=== PATIENT | female | born 1985 | race Caucasian/White ===

== ENCOUNTER → 2016-05-22 | Outpatient (REF) | payer MEDICAID | END | disposition home or self-care (01) | LOC: M LAB REF 13:11 | PROVIDERS: ATTEND Specialist | DX: Z12.4 Encounter for screening for malignant neoplasm of cervix (principal); R87.612 Low grade squamous intraepithelial lesion on cytologic smear of cervix (LGSIL) ==

== ENCOUNTER → 2016-05-24 | Outpatient (REF) | payer MEDICAID | LOC: M LAB REF 15:02 | PROVIDERS: ATTEND Nurse Practitioner Family | DX: Z02.0 Encounter for examination for admission to educational institution (principal) ==

== ENCOUNTER → 2016-07-27 | Outpatient (REF) | payer OTHER | LOC: M LAB REF 16:17 | PROVIDERS: ATTEND Physician Assistant | DX: R30.0 Dysuria (principal) ==

== ENCOUNTER → 2016-10-17 | Outpatient (REF) | payer OTHER | LOC: M LAB REF 17:02 | PROVIDERS: ATTEND Physician Assistant | DX: R10.9 Unspecified abdominal pain (principal) ==

== ENCOUNTER → 2016-10-23 | Outpatient (REF) | payer OTHER | LOC: M LAB REF 10:00 | PROVIDERS: ATTEND Specialist | DX: R87.612 Low grade squamous intraepithelial lesion on cytologic smear of cervix (LGSIL) (principal) ==

== ENCOUNTER → 2016-12-31 | Outpatient (CLI) | payer OTHER ==
[2016-12-31 19:13] LABS: BASO % 0.3 % (0.0-1.0); EOS # 0.2 K/mm3 (0.0-0.50); EOS % 2.2 % (0.0-3.0); LARGE UNSTAINED CELL # 0.1 K/mm3 (0.0-0.4); LARGE UNSTAINED CELL % 1.4 % (0.0-4.0); LYMPH # 1.7 K/mm3 (1.5-6.5); LYMPH % 24.1 % (24.0-44.0); MEAN CORPUSCULAR HEMOGLOBIN 32.9 pg (27.0-33.0); MEAN CORPUSCULAR HGB CONC 34.7 g/dl (32.0-36.5); MEAN CORPUSCULAR VOLUME 94.9 fl (80.0-96.0); MONO # 0.4 K/mm3 (0.0-0.8); MONO % 5.7 % (0.0-5.0); NEUTROPHILS # 4.4 K/mm3 (1.8-7.7); NEUTROPHILS % 66.3 % (36.0-66.0); PLATELET COUNT, AUTOMATED 284 k/mm3 (150-450); RED CELL DISTRIBUTION WIDTH 11.8 % (11.5-14.5); WHITE BLOOD COUNT 6.7 K/mm3 (4.0-10.0)
[2017-01-02 10:57] LABS: HBsAg Prenatal NEGATIVE (NEGATIVE)
== END ==
LOC: M SMT 13:42
PROVIDERS: ATTEND Specialist
DX: Z34.81 Encounter for supervision of other normal pregnancy, first trimester (principal)

== ENCOUNTER 2017-03-02 10:26 | Emergency (ER) | payer OTHER ==
[~2017-03-02] VITALS: Ht 165.1 cm; Wt 59.1 kg
[2017-03-02 12:55] LABS: BASO % 0.3 % (0.0-1.0); EOS # 0.1 10^3/uL (0.0-0.50); EOS % 1.2 % (0.0-3.0); IMMATURE GRANULOCYTE % 0.3 % (0-0); LYMPH # 1.4 10^3/uL (1.5-6.5); LYMPH % 18.2 % (24.0-44.0); MEAN CORPUSCULAR HEMOGLOBIN 32.2 pg (27.0-33.0); MEAN CORPUSCULAR HGB CONC 35.2 g/dl (32.0-36.5); MEAN CORPUSCULAR VOLUME 91.5 fl (80.0-96.0); MONO # 0.3 10^3/uL (0.0-0.8); MONO % 4.1 % (0.0-5.0); NEUTROPHILS # 5.7 10^3/uL (1.8-7.7); NEUTROPHILS % 75.9 % (36.0-66.0); PLATELET COUNT, AUTOMATED 283 10^3/uL (150-450); RED CELL DISTRIBUTION WIDTH 11.9 % (11.5-14.5); WHITE BLOOD COUNT 7.5 10^3/uL (4.0-10.0)
--- NOTE | 2017-03-02 14:36 | REP ---
First trimester obstetric ultrasound for abdominal pain. Emergency room request. There is a single intrauterine gestation. position is variable. There is motion and cardiac activity. The heart rate is 147 beats per minute. The placenta is anterior. There is no placenta previa or abruptio. Placenta is grade zero. Subjectively the amniotic fluid volume is normal. The maternal adnexa and cul-de-sac are unremarkable. By the ultrasound today gestational age is 15 weeks 1 day with an CASH of 08/23/2017. Gestational age by LMP is 13 weeks 6 days. weight is 113 grams presence 0 pounds, 3 ounces). This is the 95th percentile for 13 weeks 6 days and 30th percentile for 15 weeks 1 day. anatomic survey is attempted, however, the patient is too young for accurate anatomic assessment. However, during the ultrasound today. There were a normal cranium, choroid plexus, cavum septum pellucidum, lungs, four-chamber heart, cardiac right and left ventricular outflow tracts, diaphragm, stomach, cord insertion, kidneys, bladder and upper lower extremities. The cerebellum and posterior fossa, facial profile, three-vessel cord and spine was suboptimally demonstrated. Signed by Pratik Salinas MD 03/02/2017 02:28 P
[2017-03-02 14:51] VITALS: BP 116/71
== END 2017-03-02 14:53 | disposition home or self-care (01) ==
LOC: M ED 10:26
DX: O26.892 Other specified pregnancy related conditions, second trimester (principal); Z3A.13 13 weeks gestation of pregnancy

== ENCOUNTER → 2017-04-08 | Outpatient (CLI) | payer OTHER ==
--- NOTE | 2017-04-08 14:21 | REP ---
Clinical: Anatomical evaluation. Comparison: 03/02/2017 . Findings: Examination demonstrates a single live intrauterine in cephalic presentation. motion is identified by technologist. Placenta is noted anteriorly and grade zero without evidence for placenta previa or abruption. Amniotic fluid volume is normal. Cervix measures 3.5 cm in length and appears closed. No evidence for nuchal cord. Gestational age by LMP 19 weeks 1 day with CASH 09/01/2017 . Gestational age by current measurements 20 weeks 1 day with CASH 08/25/2017 . FHR equals 144 beats per minute. BPD 4.9 cm 20 weeks 5 days HC 17.7 cm 20 weeks 1 day AC 15.8 cm 21 weeks 0 days FL 3.2 cm 20 weeks 0 days HL 3.4 cm 21 weeks 3 days HC/AC ratio 1.12 Estimated weight 359 grams ( 51st percentile based on age by first ultrasound at 20 weeks 3 days ). Anatomical assessment demonstrates normal structures including cranium, choroid plexus, cavum, cerebellum/posterior fossa, nose and lips, lungs, four-chamber heart/ventricular outflow tracts, diaphragm, stomach, cord insertion/three-vessel cord, kidneys/bladder, spine, and extremities. Impression: 1. Single live intrauterine in cephalic presentation demonstrating appropriate interval growth based on age by first ultrasound and current biometrical measurements. 2. Anatomical assessment is essentially complete although facial profile is limited in evaluation. Signed by Afshin Karimi MD 04/08/2017 02:13 P
== END ==
LOC: M SMT 08:53
PROVIDERS: ATTEND Specialist
DX: Z34.82 Encounter for supervision of other normal pregnancy, second trimester (principal)

== ENCOUNTER → 2017-05-01 | Outpatient (CLI) | payer OTHER ==
--- NOTE | 2017-05-01 20:06 | REP ---
Clinical: Anatomical evaluation. Comparison: 04/08/2017 . Findings: Examination demonstrates a single live intrauterine in breech presentation. motion is identified by technologist. Placenta is noted anteriorly and grade one without evidence for placenta previa or abruption. Amniotic fluid volume is normal. Cervix measures 4.4 cm in length and appears closed. No evidence for nuchal cord. Gestational age by first US 23 weeks 5 days with CASH 08/23/2017 . Gestational age by current measurements 24 weeks 0 days with CASH 08/21/2017 . FHR equals 153 beats per minute. Estimated weight 659 grams ( 57 percentile based on age by first ultrasound ). Anatomical assessment demonstrates normal structures including cranium, choroid plexus, cavum, cerebellum/posterior fossa, facial features, lungs, four-chamber heart/ventricular outflow tracts, diaphragm, stomach, cord insertion/three-vessel cord, kidneys/bladder, and extremities. Impression: Single live intrauterine in breech presentation demonstrating appropriate interval growth when compared to first ultrasound. In conjunction with prior examination anatomical assessment is complete and normal. Signed by Afshin Karimi MD 05/01/2017 04:57 P
== END ==
LOC: M SMT 10:45
PROVIDERS: ATTEND Specialist
DX: Z34.82 Encounter for supervision of other normal pregnancy, second trimester (principal)

== ENCOUNTER → 2017-06-13 | Outpatient (CLI) | payer BC, OTHER ==
[2017-06-13 15:59] LABS: HEMATOCRIT 34.4 % (36.0-47.0); HEMOGLOBIN 11.5 g/dl (12.0-16.0); MEAN CORPUSCULAR HEMOGLOBIN 30.4 pg (27.0-33.0); MEAN CORPUSCULAR HGB CONC 33.4 g/dl (32.0-36.5); PLATELET COUNT, AUTOMATED 280 10^3/uL (150-450); RED BLOOD COUNT 3.78 10^6/uL (4.00-5.40); WHITE BLOOD COUNT 8.4 10^3/uL (4.0-10.0)
[2017-06-13 16:12] LABS: GLUCOSE CHALLENGE TEST 1 HOUR 96 MG/DL (LESS THAN 140)
== END ==
LOC: M SMT 10:35
DX: Z34.82 Encounter for supervision of other normal pregnancy, second trimester (principal)
CPT/HCPCS: 82950

== ENCOUNTER → 2017-08-05 | Outpatient (REF) | payer OTHER | LOC: M LAB REF 13:07 | DX: Z34.83 Encounter for supervision of other normal pregnancy, third trimester (principal) ==

== ENCOUNTER 2017-09-01 21:26 | Inpatient (IN) | payer BC, OTHER ==
[2017-09-01 22:26] LABS: HEMATOCRIT 29.3 % (36.0-47.0); HEMOGLOBIN 9.8 g/dl (12.0-15.5); MEAN CORPUSCULAR HEMOGLOBIN 28.1 pg (27.0-33.0); MEAN CORPUSCULAR HGB CONC 33.4 g/dl (32.0-36.5); PLATELET COUNT, AUTOMATED 251 10^3/uL (150-450); RED BLOOD COUNT 3.49 10^6/uL (4.00-5.40); RED CELL DISTRIBUTION WIDTH 13.5 % (11.5-14.5); WHITE BLOOD COUNT 11.3 10^3/uL (4.0-10.0)
[2017-09-01] MEDS ORDERED: FENTANYL 2MCG/ML ROPIVACAINE 0.2% IN 0.9% NACL 200ML IVBAG As Ordered (22:33)
[2017-09-01] MEDS: LACTATED RINGER'S 1000 ML IV (22:58)
[2017-09-01] MEDS: LR 1,000 ML IV (22:58)
[2017-09-01] MEDS: PENICILLIN G POTASSIUM IV 5 MU in D5W MINI-BAG PLUS 100 ML IV (22:58)
[2017-09-01] MEDS: FENTANYL/ROPIVACAINE/NACL BAG 200 ML EPIDURAL (23:44)
[2017-09-02] MEDS ORDERED: ONDANSETRON 4MG/2ML VIAL (J2405) IV ×3 (00:45→19:00)
[2017-09-02] MEDS ORDERED: EPIDURAL/PCA KEYS XX (00:45)
[2017-09-02] MEDS ORDERED: ePHEDrine SULFATE 25 MG/5 ML(5MG/ML) SYRINGE IV (00:45)
[2017-09-02] MEDS ORDERED: REFRIGERATOR IV KEYS XX (00:45)
[2017-09-02] MEDS ORDERED: EPIDURAL COMMENT XX (00:45)
[2017-09-02] MEDS ORDERED: LACTATED RINGER'S 1000 ML IV (00:45)
[2017-09-02] MEDS ORDERED: NALOXONE INJ 0.4 MG/1 ML VIAL (J2310) IV ×3 (00:45→18:13)
[2017-09-02] MEDS ORDERED: diphenhydrAMINE INJ 50MG/ML VIAL (J1200) IV (00:45)
[2017-09-02 00:51] LABS: ALT/SGPT 29 U/L (12-78); AST/SGOT 26 U/L (7-37); BILIRUBIN,TOTAL 0.3 MG/DL (0.2-1.0); CREATININE FOR GFR 0.68 MG/DL (0.55-1.30); GLOMERULAR FILTRATION RATE > 60.0 (>60); LDH LACTATE DEHYDROGENASE 188 U/L (84-246)
[2017-09-02] MEDS: PENICILLIN G POTASSIUM IV 2.5 MU in APPROPRIATE DILUENT 1 EA IV ×4 (03:38→16:07)
[2017-09-02] MEDS ORDERED: OXYTOCIN 30 UNITS IN 0.9% NaCl 500ML IV BAG (J2590) As Ordered (07:03)
[2017-09-02] MEDS: LR 1,000 ML IV ×5 (08:41→20:58)
[2017-09-02] MEDS: ACETAMINOPHEN TAB 650MG DOSE (2X325MG) PO ×2 (09:50→15:46)
[2017-09-02] MEDS: OXYTOCIN DRIP 30 UNITS in APPROPRIATE DILUENT 1 EA IV (11:53)
[2017-09-02] MEDS ORDERED: ceFAZolin 2 GM/D5W 50 ML IV BAG (J0690 PER 500MG) As Ordered (17:13)
[2017-09-02] MEDS ORDERED: BICITRA 30ML SOLN UDC As Ordered (17:13)
[2017-09-02] MEDS: LACTATED RINGER'S 1000 ML IV (17:19)
[2017-09-02] MEDS: BICITRA 30ML SOLN UDC PO (17:40)
[2017-09-02] MEDS ORDERED: MORPHINE PRES-FREE INJ 10 MG/10 ML VIAL (J2274) As Ordered (17:45)
[2017-09-02] MEDS ORDERED: LIDOCAINE 2% W/EPIN INJ 20ML **PRES FREE As Ordered (17:45)
[2017-09-02] MEDS ORDERED: SODIUM BICARBONATE 8.4% INJ 50 ML SYRINGE As Ordered (17:45)
[2017-09-02] MEDS ORDERED: OXYTOCIN INJ 10 UNITS/ML VIAL (J2590) As Ordered ×2 (18:00)
[2017-09-02] MEDS ORDERED: METOCLOPRAMIDE INJ 10MG/2ML VIAL (J2765) IV (18:13)
[2017-09-02] MEDS ORDERED: KETOROLAC 60 MG/2 ML VIAL (J1885) As Ordered (18:14)
[2017-09-02] MEDS ORDERED: ONDANSETRON 4MG/2ML VIAL (J2405) As Ordered (18:21)
[2017-09-02 18:23] LABS: CORD GAS ABE V -2.7; CORD GAS HCO3 V 21.1 MEQ/L; CORD GAS O2 SAT V 58.6 %; CORD GAS PCO2 V 34.1 mmHg; CORD GAS PH V 7.409 UNITS; CORD GAS PO2 V 25.6 mmHg; CORD GAS SBC V 21.3 MEQ/L; CORD GAS TCO2 V 22.1 MEQ/L
[2017-09-02] MEDS ORDERED: RHOGAM 300 MCG (1500 IU) INJ (J2790) IM (18:45)
[2017-09-02] MEDS ORDERED: MEASLES,MUMPS,RUBELLA VACCINE INJ (MMR-II) (90707) SC (18:45)
[2017-09-02] MEDS ORDERED: DOCUSATE SODIUM 100 MG CAP PO (18:45)
[2017-09-02] MEDS ORDERED: fentaNYL 100 MCG/2 ML INJECTION (J3010) IV (19:00)
[2017-09-02] MEDS ORDERED: MEPERIDINE INJ 25 MG/ML VIAL (J2175) IV (19:00)
[2017-09-02] MEDS ORDERED: NALBUPHINE HCL 10 MG/ML AMP (J2300) IV (19:00)
[2017-09-02] MEDS: PERCOCET 5MG/325MG TAB PO (20:58)
[2017-09-02] MEDS: KETOROLAC 30 MG/ML VIAL (J1885) IV (23:53)
[2017-09-03] MEDS: LR 1,000 ML IV ×2 (02:37→10:37)
[2017-09-03] MEDS: PERCOCET 5MG/325MG TAB PO ×4 (02:44→21:41)
[2017-09-03] MEDS: KETOROLAC 30 MG/ML VIAL (J1885) IV ×3 (06:19→18:30)
[2017-09-03] MEDS: NALBUPHINE HCL 10 MG/ML AMP (J2300) IV ×2 (06:19)
[2017-09-03 06:51] LABS: HEMATOCRIT 21.8 % (36.0-47.0); MEAN CORPUSCULAR VOLUME 84.8 fl (80.0-96.0); PLATELET COUNT, AUTOMATED 173 10^3/uL (150-450); RED BLOOD COUNT 2.57 10^6/uL (4.00-5.40); RED CELL DISTRIBUTION WIDTH 14.1 % (11.5-14.5); WHITE BLOOD COUNT 10.6 10^3/uL (4.0-10.0)
[2017-09-03 07:01] LABS: HEMOGLOBIN 7.2 g/dl (12.0-15.5)
[2017-09-03] MEDS: PRENATAL VITAMINS CHEWABLE TABLET PO (08:02)
[2017-09-04] MEDS: ONDANSETRON 4MG/2ML VIAL (J2405) IV (00:18)
[2017-09-04] MEDS: IBUPROFEN 800 MG TAB PO ×3 (02:07→18:30)
[2017-09-04] MEDS: PRENATAL VITAMINS CHEWABLE TABLET PO (09:56)
[2017-09-04] MEDS: PERCOCET 5MG/325MG TAB PO (12:58)
[2017-09-05] MEDS: IBUPROFEN 800 MG TAB PO ×2 (01:55→09:58)
[2017-09-05] MEDS: PRENATAL VITAMINS CHEWABLE TABLET PO (08:05)
== END 2017-09-05 10:45 | disposition home or self-care (01) | DRG 540 ==
LOC: M LDO 21:26 → M LDI 21:54 → M OBS 09-02 20:25
PROC: 10D00Z1 Extraction of Products of Conception, Low, Open Approach (ICD-10-PCS; principal; 2017-09-02 17:43)
PROC: 10907ZC Drainage of Amniotic Fluid, Therapeutic from Products of Conception, Via Natural or Artificial Opening (ICD-10-PCS; 2017-09-02 17:43)
DX: O48.0 Post-term pregnancy (principal); O99.824 Streptococcus B carrier state complicating childbirth; Z37.0 Single live birth; Z3A.40 40 weeks gestation of pregnancy; O32.4XX0 Maternal care for high head at term, not applicable or unspecified; O77.0 Labor and delivery complicated by meconium in amniotic fluid

== ENCOUNTER → 2018-03-26 | Outpatient (REF) | payer BC, OTHER ==
[2018-03-26 20:45] LABS: CHLAMYDIA DNA AMPLIFICATION NEGATIVE (NEGATIVE); GC DNA AMPLIFICATION NEGATIVE (NEGATIVE)
== END ==
LOC: M LAB REF 16:53
DX: N76.0 Acute vaginitis (principal)
CPT/HCPCS: 87591

== ENCOUNTER → 2018-06-03 | Outpatient (REF) | payer BC ==
[~2018-06-03] MED LIST: IBUP-1114 PO; OXYC1TAB23 PO
[2018-06-07 14:47] LABS: HPV HYBRID CAPTURE II Positive (Negative)
== END ==
LOC: M LAB REF 17:00
PROVIDERS: ATTEND Specialist
DX: Z12.4 Encounter for screening for malignant neoplasm of cervix (principal)
CPT/HCPCS: 87624; G0123

== ENCOUNTER → 2018-09-08 | Outpatient (CLI) | payer BC | LOC: M SMT 13:41 | PROVIDERS: ATTEND Specialist | DX: O02.1 Missed abortion (principal) ==

== ENCOUNTER 2018-09-16 14:46 | Day surgery (SDC) | payer BC ==
[~2018-09-16] VITALS: Ht 157.5 cm; Wt 54.0 kg
[~2018-09-16 14:46] MED LIST changes: +LR 1,000 ML IV SCH
[2018-09-16 15:10] LABS: HEMATOCRIT 30.5 % (36.0-47.0); HEMOGLOBIN 10.1 g/dl (12.0-15.5); MEAN CORPUSCULAR HEMOGLOBIN 29.2 pg (27.0-33.0); MEAN CORPUSCULAR HGB CONC 33.1 g/dl (32.0-36.5); MEAN CORPUSCULAR VOLUME 88.2 fl (80.0-96.0); PLATELET COUNT, AUTOMATED 381 10^3/uL (150-450); RED BLOOD COUNT 3.46 10^6/uL (4.00-5.40); WHITE BLOOD COUNT 6.1 10^3/uL (4.0-10.0)
[2018-09-16] MEDS ORDERED: LIDOCAINE 1% SDV INJ 30 ML VIAL As Ordered ONE (16:55)
[2018-09-16] MEDS ORDERED: PROPOFOL 200 MG/20 ML VIAL As Ordered ONE (17:06)
[2018-09-16] MEDS ORDERED: fentaNYL 100 MCG/2 ML INJECTION (J3010) As Ordered ONE (17:07)
[2018-09-16] MEDS ORDERED: MIDAZOLAM INJ 2 MG/2 ML VIAL (J2250) As Ordered ONE (17:07)
[2018-09-16] MEDS ORDERED: KETOROLAC 60 MG/2 ML VIAL (J1885) As Ordered ONE (17:22)
[2018-09-16] MEDS ORDERED: DOXYCYCLINE HYCLATE 100 MG TAB PO ONE (18:15)
[2018-09-16] MEDS ORDERED: ACETAMINOPHEN 500 MG TAB PO ONE (18:15)
[2018-09-16] MEDS ORDERED: LR 1,000 ML IV SCH (18:15)
[2018-09-16 18:25] VITALS: BP 112/56
--- NOTE | 2018-09-16 18:46 | RO ---
DATE OF PROCEDURE: 09/16/2018 PREPROCEDURE DIAGNOSIS: Incomplete . POSTPROCEDURE DIAGNOSIS: Incomplete . PROCEDURE: Dilation, evacuation and curettage (D, E and C). SURGEON: Dr. Jose L Ordoñez DIRECTOR OF EXHIBITS: ANESTHESIA: Local with sedation. ESTIMATED BLOOD LOSS: 10 mL. FINDINGS: Moderate amount of products of conception. DESCRIPTION OF PROCEDURE: The patient was taken to the operating room where intravenous (IV) sedation was given. She was prepped and draped in a sterile fashion in the dorsal lithotomy position. A speculum was placed in the vagina, and the anterior lip of the cervix was grasped with a tenaculum. The cervix was injected circumferentially with 20 mL of 1% lidocaine. The cervix was dilated with tapered dilators. A #9 mm suction curette was placed through the internal os. The suction device was activated, the curette was gently rotated until products of conception were noted coming through the suction tubing. Sharp curettage performed. The uterine cavity was deemed to be empty. All instruments were removed. Sponge and instrument counts were correct.
== END 2018-09-16 18:56 | disposition home or self-care (01) ==
LOC: M SDC 14:46
PROVIDERS: ATTEND Specialist
DX: O02.1 Missed abortion (principal)
CPT/HCPCS: 36415; 59820; 85027; 88305; J1885; J2250; J3010

== ENCOUNTER → 2018-10-28 | Outpatient (REF) | payer BC ==
[~2018-10-28] MED LIST changes: -LR 1,000 ML IV SCH
== END ==
LOC: M LAB REF 17:40
PROVIDERS: ATTEND Specialist
DX: R87.612 Low grade squamous intraepithelial lesion on cytologic smear of cervix (LGSIL) (principal); R87.810 Cervical high risk human papillomavirus (HPV) DNA test positive

== ENCOUNTER → 2020-03-04 | Outpatient (REF) | payer BC | LOC: M SFHCWAGY 08:36 | PROVIDERS: ATTEND Specialist | DX: Z01.419 Encounter for gynecological examination (general) (routine) without abnormal findings (principal) ==

== ENCOUNTER → 2020-06-25 | Outpatient (CLI) | payer BC ==
[~2020-06-25] MED LIST changes: +ESCI10TA16
== END ==
LOC: M LABSMTC 10:58
PROVIDERS: ATTEND Anesthesiology
DX: Z01.812 Encounter for preprocedural laboratory examination (principal); Z20.822 Contact with and (suspected) exposure to COVID-19

== ENCOUNTER 2020-06-30 06:00 | Day surgery (SDC) | payer BC ==
[~2020-06-30] VITALS: Ht 165.1 cm; Wt 53.1 kg
[~2020-06-30 06:00] MED LIST changes: +LR 1,000 ML IV ONE
--- OUTSIDE RECORDS SUMMARY | 2020-06-30 06:04 | CCD ---
Author Author [facility] [employer] 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 Role Phone Jose L Ordoñez Unavailable PROBLEMS Type Condition ICD9-CM Code [id number] Code Onset Dates Condition S tatus SNOMED Code Notes Problem Unspecified symptom associated with female genital organs 625.9 Active 851938351 ALLERGIES No Known Allergies ENCOUNTERS from 1987 to 2020-05-18 Encounter Location Date Provider Diagnosis [facility] [address] [place] [address] May, Jose L Ordoñez IMMUNIZATIONS No Information SOCIAL HISTORY Sex Assigned At : Social History Observation Description Sex Assigned At Unknown Alcohol Screening: Question Answer Notes Did you have a drink containing alcohol in the past year? No Points 0 Interpretation Negative REASON FOR REFERRAL No Information VITAL SIGNS No information MEDICATIONS Medication SIG (Take, Route, Frequency, Duration) Notes Start Da te End Date Status Seasonique 0.15-0.03 &0.01 MG 1 tablet Orally Once a d ay at same time each day for 84 day(s) Oct, Unknown Macrobid 100 mg 1 capsule with food Orally every 12 hrs for 7 da y(s) May, Not-Taking Multivitamins otc 1 tab(s) p.o. occ. Active Lexapro 10 MG 1 tablet Orally Once a day Active PROCEDURES No Information RESULTS No Results REASON FOR VISIT AUTHORIZATION MEDICAL (GENERAL) HISTORY Type Description Date Medical History PCOS ? Medical History hx UTIs Surgical History cystoscopy 2008 Goals Section No Information Health Concerns No Information MEDICAL EQUIPMENT No Information MENTAL STATUS No Information FUNCTIONAL STATUS No Information ASSESSMENTS No Information PLAN OF TREATMENT Next Appt Details Provider Name:Jose L Ordoñez, 2020-06-03 03:20:00 PM, [address] [place] [address], [phone], Provider Name:Jose L Ordoñez, 2020-06-30 07:30:00 AM, [address] [place] [address], [phone], Provider Name:Jose L Ordoñez, 2020-07-18 03:20:00 PM, [address] [place] [address], [phone], Insurance Providers Payer Name Payer Address Payer Phone Insured Name Patient Relati onship to Insured Coverage Start Date Coverage End Date [employer] [facility] [id number] [facility] [id number] APRYL APPIAH [id number]
--- OUTSIDE RECORDS SUMMARY | 2020-06-30 06:04 | CCD | Continuity of Care Document ---
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 Recreational Drug Use Never Used Drugs Exercise Type/Frequency Walks 5 times a week Seat Belt/Car Seat Always uses car seat Bike Helmet Not Applicable as does not ride a bike Guns in Home No Allergies, Adverse Reactions, Alerts Description No Known Drug Allergies Medications Active Medications SIG Qnty Indications Ordering Provide r Date Escitalopram Oxalate 10mg Tablets 1 by mouth every day 90tabs F41.1 Thomas Odonnell DO 0 Immunizations Description No Information Available Vital Signs Date Vital Result Comment 05/31/2020 5:52pm BP Systolic 120 mmHg BP Diastolic 80 mmHg Heart Rate 60 /min Body Temperature 98.0 F Respiratory Rate 16 /min Weight 127.00 lb Weight 57.607 kg Height 65 inches 5'5" BMI (Body Mass Index) 21.1 kg/m2 [place] Body Weight 125 lb 12/01/2019 6:10pm BP Systolic 98 mmHg BP Diastolic 62 mmHg Heart Rate 60 /min Body Temperature 97.8 F Respiratory Rate 18 /min Weight 121.00 lb Weight 54.886 kg Height 65 inches 5'5" BMI (Body Mass Index) 20.1 kg/m2 [place] Body Weight 125 lb Results Description No Information Available Procedures Description No Information Available Medical Devices Description No Information Available Encounters Type Date Location Provider Dx Diagnosis Office Visit 05/31/2020 6:15p [address] Harpal Fragoso F41.1 Generalized anxiety disorder Assessments Date Code Description Provider 05/31/2020 F41.1 Generalized anxiety disorder Ant vince Odonnell DO Plan of Treatment Future Appointment(s):* 09/13/2020 5:30 pm - Thomas Odonnell DO at [address] 05/31/2020 - Thomas Odonnell DO* F41.1 Generalized anxiety disorder* Comments:* Patient to continue current medication and contact the office with concerns. Patient to f/u in 3-4 months. Functional Status Description No Information Available Mental Status Mental Condition Comment Date Status None Active Referrals Refer to Dr Reason for Referral Status Appt Date [facility] Please obtain aut h for bilateral diagnostic mammogram due to breast lumps Radiology recommends patient have a mammogram and sonogram Closed [facility] [address] [place] [address] [phone]
--- OUTSIDE RECORDS SUMMARY | 2020-06-30 06:04 | CCD ---
Author Author [facility] Organization [facility] Address Unknown Phone Unavailable Care Team Providers Care Motor Coach Chauffeur Name Role Phone Jose L Ordoñez Unavailable PROBLEMS Type Condition ICD9-CM Code [id number] Code Onset Dates Condition S tatus W/U Status Risk SNOMED Code Notes Problem Unspecified symptom associated with female genital organs 625.9 Active confirmed ALLERGIES No Known Allergies ENCOUNTERS from 1987 to 2020-06-25 Encounter Location Date Provider Diagnosis [facility] [address] [place] [id number] Jun, Jose L Ordoñez Excessive menses N92 .0 IMMUNIZATIONS No Information SOCIAL HISTORY Sex Assigned At : Social History Observation Description Sex Assigned At Unknown Alcohol Screening: Question Answer Notes Did you have a drink containing alcohol in the past year? No Points 0 Interpretation Negative REASON FOR REFERRAL No Information VITAL SIGNS Weight 123.6 lbs Jun, Weight-kg 56.06 kg Jun, Height 65 in Jun, BMI 20.57 kg/m2 Jun, Blood pressure systolic 112 mm Hg Jun, Blood pressure diastolic 72 mm Hg Jun, MEDICATIONS Medication SIG (Take, Route, Frequency, Duration) Notes Start Da te End Date Status Lexapro 10 MG 1 tablet Orally Once a day Active Macrobid 100 mg 1 capsule with food Orally every 12 hrs for 7 da y(s) May, Not-Taking Seasonique 0.15-0.03 &0.01 MG 1 tablet Orally Once a d ay at same time each day for 84 day(s) Oct, Not-Taking Multivitamins otc 1 tab(s) p.o. occ. Active PROCEDURES No Information RESULTS No Results REASON FOR VISIT PRE OP SURG 06/30/20 MEDICAL (GENERAL) HISTORY Type Description Date Medical History PCOS ? Medical History hx UTIs Surgical History cystoscopy 2007 Goals Section No Information Health Concerns No Information MEDICAL EQUIPMENT No Information MENTAL STATUS No Information FUNCTIONAL STATUS No Information ASSESSMENTS Encounter Date Diagnosis Assessment Notes Treatment Notes Treatm ent Clinical Notes Jun, Excessive menses (ICD-10 - N92.0) PLAN OF TREATMENT Next Appt Details Provider Name:Jose L Ordoñez 2020-06-30 07:30:00 AM, [address] [place] [address], [phone], Provider Name:Jose L Ordoñez 2020-07-18 03:20:00 PM, [address] [place] [address], [phone], Insurance Providers Payer Name Payer Address Payer Phone Insured Name Patient Relati onship to Insured Coverage Start Date Coverage End Date BCBS [place] PPO [id number] [facility] [employer] [place] [id number] APRYL APPIAH
--- OUTSIDE RECORDS SUMMARY | 2020-06-30 06:04 | CCD | Continuity of Care Document ---
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 Recreational Drug Use Never Used Drugs Exercise [...] by mouth every day 90tabs F41.1 Thomas Odonnell, 0 History Medications No Active Medications Unknown - 12/01/2019 Lexapro 10mg Tablets 1 by mouth every day 30tabs F41.1 Thomas Odonnell, 12/01/2019 - 120 05/2019 Immunizations Description No Information Available Vital Signs Date Vital Result Comment 05/31/2020 5:52pm BP Systolic 120 mmHg BP Diastolic 80 mmHg Heart Rate 60 /min Body Temperature 98.0 F Respiratory Rate 16 /min Weight 127.00 lb Weight 57.607 kg Height 65 inches 5'5" BMI (Body Mass Index) 21.1 kg/m2 [place] Body Weight 125 lb 12/01/2019 6:10pm BP Systolic 98 mmHg BP Diastolic 62 mmHg Heart Rate 60 /min Body Temperature 97.8 F Respiratory Rate 18 /min Weight 121.00 lb Weight 54.886 kg Height 65 inches 5'5" BMI (Body Mass Index) 20.1 kg/m2 [place] Body Weight 125 lb Results Description No Information Available Procedures Description No Information Available Medical Devices Description No Information Available Encounters Type Date Location Provider Dx Diagnosis Office Visit 05/31/2020 6:[address]p [address] Harpal Fragoso O F41.1 Generalized anxiety disorder Office Visit 12/01/2019 6:[address]p [address] Harpal Fragoso N63.0 Unspecified lump in unspecified breast F41.1 Generalized anxiety disorder Assessments Date Code Description Provider 05/31/2020 F41.1 Generalized anxiety disorder Ant vince Odonnell DO 12/01/2019 N63.0 Unspecified lump in unspecified breast Thomas Odonnell DO 12/01/2019 F41.1 Generalized anxiety disorder Ant vince Odonnell [...] Date Status None Active Referrals Refer to Reason for Referral Status Appt Date [facility] Please obtain aut h for bilateral diagnostic mammogram due to breast lumps Radiology recommends patient have a mammogram and sonogram Closed [facility] Services [address] [place] [id number] [phone]
--- OUTSIDE RECORDS SUMMARY | 2020-06-30 06:04 | CCD ---
Author Author [facility] Organization [facility] Address Unknown Phone Unavailable Care Team Providers Care Crm Specialist Name Role Phone GABRIEL, W HALEY PA Unavailable Unavailable GABRIEL, W HALEY PA Unavailable Unavailable GABRIEL, W HALEY PA Unavailable Unavailable GABRIEL, W HALEY PA Unavailable Unavailable GABRIEL, W HALEY PA Unavailable Unavailable GABRIEL, W HALEY PA Unavailable Unavailable GABRIEL, W HALEY PA Unavailable Unavailable GABRIEL, W HALEY PA Unavailable Unavailable GABRIEL, W HALEY PA Unavailable Unavailable GABRIEL, W HALEY PA Unavailable Unavailable GABRIEL, W HALEY PA Unavailable Unavailable GABRIEL, W HALEY PA Unavailable Unavailable GABRIEL, W HALEY PA Unavailable Unavailable GABRIEL, W HALEY PA Unavailable Unavailable GABRIEL, W HALEY PA Unavailable Unavailable GABRIEL, W HALEY PA Unavailable Unavailable GABRIEL, W HALEY PA Unavailable Unavailable GABRIEL, W HALEY PA Unavailable Unavailable GABRIEL, W HALEY PA Unavailable Unavailable GABRIEL, W HALEY PA Unavailable Unavailable GABRIEL, W HALEY PA Unavailable Unavailable GABRIEL, W HALEY PA Unavailable Unavailable GABRIEL, W HALEY PA Unavailable Unavailable GABRIEL, W HALEY PA Unavailable Unavailable GABRIEL, W HALEY PA Unavailable Unavailable GABRIEL, W HALEY PA Unavailable Unavailable GABRIEL, W HALEY PA Unavailable Unavailable GABRIEL, W HALEY PA Unavailable Unavailable GABRIEL, W HALEY PA Unavailable Unavailable GABRIEL, W HALEY PA Unavailable Unavailable GABRIEL, W HALEY PA Unavailable Unavailable GABRIEL, W HALEY PA Unavailable Unavailable GABRIEL, W HALEY PA Unavailable Unavailable GABRIEL, W HALEY PA Unavailable Unavailable GABRIEL, W HALYE PA Unavailable Unavailable GABRIEL, W HALEY PA Unavailable Unavailable GABRIEL, W HALEY PA Unavailable Unavailable GABRIEL, W HALEY PA Unavailable Unavailable GABRIEL, W HALEY PA Unavailable Unavailable GABRIEL, W HALEY PA Unavailable Unavailable GABRIEL, W HALEY PA Unavailable Unavailable GABRIEL, W HALEY PA Unavailable Unavailable GABRIEL, W HALEY PA Unavailable Unavailable GABRIEL, W HALEY PA Unavailable Unavailable GABRIEL, W HALEY PA Unavailable Unavailable GABRIEL, W HALEY PA Unavailable Unavailable Diya, H Nehemiah FLOORING SALES MANAGER Unavailable Unavailable Fayette, H Nehemiah FLOORING SALES MANAGER Unavailable Unavailable Fayette, H Nehemiah FLOORING SALES MANAGER Unavailable Unavailable Diya, H Nehemiah FLOORING SALES MANAGER Unavailable Unavailable Diya, H Nehemiah FLOORING SALES MANAGER Unavailable Unavailable Diya, H Nehemiah FLOORING SALES MANAGER Unavailable Unavailable Diya, H Nehemiah FLOORING SALES MANAGER Unavailable Unavailable Diya, H Nehemiah FLOORING SALES MANAGER Unavailable Unavailable Fayette, H Nehemiah FLOORING SALES MANAGER Unavailable Unavailable Diya, H Nehemiah FLOORING SALES MANAGER Unavailable Unavailable Fayette, H Nehemiah FLOORING SALES MANAGER Unavailable Unavailable PATHICKAL, K JASPREET Unavailable Unavailable Rochelle June MD Unavailable Unavailable Rochelle June MD Unavailable Unavailable Rochelle June MD Unavailable Unavailable Rochelle June MD Unavailable Unavailable Rochelle June MD Unavailable Unavailable Rochelle June MD Unavailable Unavailable Rochelle June MD Unavailable Unavailable Rochelle June MD Unavailable Unavailable Rochelle June MD Unavailable Unavailable Rochelle June MD Unavailable Unavailable Rochelle June MD Unavailable Unavailable Bagatell, L Macho MD Unavailable Unavailable Bagatell, L Macho Unavailable Unavailable Bagatell, L Macho Unavailable Unavailable Bagatell, L Macho Unavailable Unavailable Bagatell, L Macho MD Unavailable Unavailable Bagatell, L Macho MD Unavailable Unavailable Bagatell, L Macho MD Unavailable Unavailable Bagatell, L Macho Unavailable Unavailable Bagatell, L Macho MD Unavailable Unavailable Bagatell, L Macho MD Unavailable Unavailable Bagatell, L Macho MD Unavailable Unavailable Bagatell, L Macho MD Unavailable Unavailable Bagatell, L Macho MD Unavailable Unavailable Bagatell, L Macho MD Unavailable Unavailable Bagatell, L Macho MD Unavailable Unavailable Bagatell, L Macho MD Unavailable Unavailable Bagatell, L Macho MD Unavailable Unavailable Bagatell, L Macho MD Unavailable Unavailable Bagatell, L Macho MD Unavailable Unavailable Bagatell, L Macho Unavailable Unavailable Bagatell, L Macho Unavailable Unavailable Bagatell, L Macho Unavailable Unavailable Bagatell, L Macho Unavailable Unavailable Bagatell, L Macho Unavailable Unavailable Bagatell, L Macho Unavailable Unavailable Wendy MUNGUIA Unavailable Unavailable Harpal Roberto MD Unavailable Unavailable Harpal Roberto MD Unavailable Unavailable Harpal Roberto MD Unavailable Unavailable Harpal Roberto MD Unavailable Unavailable Harpal Roberto MD Unavailable Unavailable Harpal Roberto MD Unavailable Unavailable Harpal Roberto MD Unavailable Unavailable Harpal Roberto MD Unavailable Unavailable Harpal Roberto MD Unavailable Unavailable Harpal Roberto MD Unavailable Unavailable Harpal Roberto MD Unavailable Unavailable Harpal Roberto MD Unavailable Unavailable Harpal Roberto MD Unavailable Unavailable Harpal Roberto MD Unavailable Unavailable Harpal Roberto MD Unavailable Unavailable Harpal Roberto MD Unavailable Unavailable Harpal Roberto MD Unavailable Unavailable Harpal Roberto MD Unavailable Unavailable Harpal Roberto MD Unavailable Unavailable Harpal Roberto MD Unavailable Unavailable Harpal Roberto MD Unavailable Unavailable Harpal Roberto MD Unavailable Unavailable Harpal Roberto MD Unavailable Unavailable Harpal Roberto MD Unavailable Unavailable Harpal Roberto MD Unavailable Unavailable Harpal Roberto MD Unavailable Unavailable Harpal Roberto MD Unavailable Unavailable Harpal Roberto MD Unavailable Unavailable Harpal Roberto MD Unavailable Unavailable Harpal Roberto MD Unavailable Unavailable Harpal Roberto MD Unavailable Unavailable Harpal Roberto MD Unavailable Unavailable Felisa, Harpal Griffin MD Unavailable Unavailable Harpal Roberto MD Unavailable Unavailable Harpal Roberto MD Unavailable Unavailable Harpal Roberto MD Unavailable Unavailable Harpal Roberto MD Unavailable Unavailable Harpal Roberto MD Unavailable Unavailable Harpal Roberto MD Unavailable Unavailable Harpal Roberto MD Unavailable Unavailable Harpal Roberto MD Unavailable Unavailable Harpal Roberto MD Unavailable Unavailable Arabella TERESA Unavailable Unavailable GABRIEL, W HALEY PA Unavailable Unavailable GABRIEL, W HALEY PA Unavailable Unavailable GABRIEL, W HALEY PA Unavailable Unavailable GABRIEL, W HALEY PA Unavailable Unavailable GABRIEL, W HALEY PA Unavailable Unavailable GABRIEL, W HALEY PA Unavailable Unavailable GABRIEL, W HALEY PA Unavailable Unavailable GABRIEL, W HALEY PA Unavailable Unavailable GABRIEL, W HALEY PA Unavailable Unavailable GABRIEL, W HALEY PA Unavailable Unavailable GABRIEL, W HALEY PA Unavailable Unavailable GABRIEL, W HALEY PA Unavailable Unavailable GABRIEL, W HALEY PA Unavailable Unavailable GABRIEL, W HALEY PA Unavailable Unavailable GABRIEL, W HALEY PA Unavailable Unavailable GABRIEL, W HALEY PA Unavailable Unavailable GABRIEL, W HALEY PA Unavailable Unavailable GABRIEL, W HALEY PA Unavailable Unavailable GABRIEL, W HALEY PA Unavailable Unavailable GABRIEL, W HALEY PA Unavailable Unavailable GABRIEL, W HALEY PA Unavailable Unavailable GABRIEL, W HALEY PA Unavailable Unavailable GABRIEL, W HALEY PA Unavailable Unavailable GABRIEL, W HALEY PA Unavailable Unavailable GABRIEL, W HALEY PA Unavailable Unavailable GABRIEL, W HALEY PA Unavailable Unavailable GABRIEL, W HALEY PA Unavailable Unavailable GABRIEL, W HALEY PA Unavailable Unavailable GABRIEL, W HALEY PA Unavailable Unavailable GABRIEL, W HALEY PA Unavailable Unavailable GABRIEL, W HALEY PA Unavailable Unavailable GABRIEL, W HALEY PA Unavailable Unavailable GABRIEL, W HALEY PA Unavailable Unavailable GABRIEL, W HALEY PA Unavailable Unavailable GABRIEL, W HALEY PA Unavailable Unavailable GABRIEL, W HALEY PA Unavailable Unavailable GABRIEL, W HALEY PA Unavailable Unavailable GABRIEL, W HALEY PA Unavailable Unavailable GABRIEL, W HALEY PA Unavailable Unavailable GABRIEL, W HALEY PA Unavailable Unavailable GABRIEL, W HALEY PA Unavailable Unavailable GABRIEL, W HALEY PA Unavailable Unavailable GABRIEL, W HALEY PA Unavailable Unavailable GABRIEL, W HALEY PA Unavailable Unavailable GABRIEL, W HALEY PA Unavailable Unavailable GABRIEL, W HALEY PA Unavailable Unavailable MALVASI, SUYAPA DO Unavailable Unavailable MALVASI, SUYAPA DO Unavailable Unavailable MALVASI, SUYAPA DO Unavailable Unavailable MALVASI, SUYAPA DO Unavailable Unavailable MALVASI, SUYAPA DO Unavailable Unavailable MALVASI, SUYAPA DO Unavailable Unavailable MALVASI, SUYAPA DO Unavailable Unavailable MALVASI, SUYAPA DO Unavailable Unavailable MALVASI, SUYAPA DO Unavailable Unavailable MALVASI, SUYAPA DO Unavailable Unavailable MALVASI, SUYAPA DO Unavailable Unavailable MALVASI, SUYAPA DO Unavailable Unavailable MALVASI, SUYAPA DO Unavailable Unavailable MALVASI, SUYAPA DO Unavailable Unavailable MALVASI, SUYAPA DO Unavailable Unavailable MALVASI, SUYAPA DO Unavailable Unavailable MALVASI, SUYAPA DO Unavailable Unavailable MALVASI, SUYAPA DO Unavailable Unavailable MALVASI, SUYAPA DO Unavailable Unavailable MALVASI, SUYAPA DO Unavailable Unavailable MALVASI, SUYAPA DO Unavailable Unavailable MALVASI, SUYAPA DO Unavailable Unavailable MALVASI, SUYAPA DO Unavailable Unavailable MALVASI, SUYAPA DO Unavailable Unavailable MALVASI, SUYAPA DO Unavailable Unavailable MALVASI, SUYAPA DO Unavailable Unavailable MALVASI, SUYAPA DO Unavailable Unavailable MALVASI, SUYAPA DO Unavailable Unavailable MALVASI, SUYAPA DO Unavailable Unavailable MALVASI, SUYAPA DO Unavailable Unavailable MALVASI, SUYAPA DO Unavailable Unavailable MALVASI, SUYAPA DO Unavailable Unavailable MALVASI, SUYAPA DO Unavailable Unavailable MALVASI, SUYAPA DO Unavailable Unavailable MALVASI, SUYAPA DO Unavailable Unavailable MALVASI, SUYAPA DO Unavailable Unavailable MALVASI, SUYAPA DO Unavailable Unavailable MALVASI, SUYAPA DO Unavailable Unavailable MALVASI, SUYAPA DO Unavailable Unavailable MALVASI, SUYAPA DO Unavailable Unavailable MALVASI, SUYAPA DO Unavailable Unavailable MALVASI, SUYAPA DO Unavailable Unavailable MALVASI, SUYAPA DO Unavailable Unavailable MALVASI, SUYAPA DO Unavailable Unavailable MALVASI, SUYAPA DO Unavailable Unavailable MALVASI, SUYAPA DO Unavailable Unavailable MALVASI, SUYAPA DO Unavailable Unavailable MALVASI, SUYAPA DO Unavailable Unavailable MALVASI, SUYAPA DO Unavailable Unavailable MALVASI, SUYAPA DO Unavailable Unavailable MALVASI, SUYAPA DO Unavailable Unavailable MALVASI, SUYAPA DO Unavailable Unavailable MALVASI, SUYAPA DO Unavailable Unavailable MALVASI, SUYAPA DO Unavailable Unavailable MALVASI, SUYAPA DO Unavailable Unavailable MALVASI, SUYAPA DO Unavailable Unavailable MALVASI, SUYAPA DO Unavailable Unavailable MALVASI, SUYAPA DO Unavailable Unavailable MALVASI, SUYAPA DO Unavailable Unavailable MALVASI, SUYAPA DO Unavailable Unavailable MALVASI, SUYAPA DO Unavailable Unavailable MALVASI, SUYAPA DO Unavailable Unavailable MALVASI, SUYAPA DO Unavailable Unavailable MALVASI, SUYAPA DO Unavailable Unavailable MALVASI, SUYAPA DO Unavailable Unavailable ALIASES , DEFAULT / GENERIC / UNKNOWN PROVIDER * Unavailable Unavailable ALIASES , DEFAULT / GENERIC / UNKNOWN PROVIDER * Unavailable Unavailable ALIASES , DEFAULT / GENERIC / UNKNOWN PROVIDER * Unavailable Unavailable ALIASES , DEFAULT / GENERIC / UNKNOWN PROVIDER * Unavailable Unavailable ALIASES , DEFAULT / GENERIC / UNKNOWN PROVIDER * Unavailable Unavailable ALIASES , DEFAULT / GENERIC / UNKNOWN PROVIDER * Unavailable Unavailable ALIASES , DEFAULT / GENERIC / UNKNOWN PROVIDER * Unavailable Unavailable ALIASES , DEFAULT / GENERIC / UNKNOWN PROVIDER * Unavailable Unavailable ALIASES , DEFAULT / GENERIC / UNKNOWN PROVIDER * Unavailable Unavailable ALIASES , DEFAULT / GENERIC / UNKNOWN PROVIDER * Unavailable Unavailable ALIASES , DEFAULT / GENERIC / UNKNOWN PROVIDER * Unavailable Unavailable ALIASES , DEFAULT / GENERIC / UNKNOWN PROVIDER * Unavailable Unavailable ALIASES , DEFAULT / GENERIC / UNKNOWN PROVIDER * Unavailable Unavailable ALIASES , DEFAULT / GENERIC / UNKNOWN PROVIDER * Unavailable Unavailable ALIASES , DEFAULT / GENERIC / UNKNOWN PROVIDER * Unavailable Unavailable ALIASES , DEFAULT / GENERIC / UNKNOWN PROVIDER * Unavailable Unavailable ALIASES , DEFAULT / GENERIC / UNKNOWN PROVIDER * Unavailable Unavailable ALIASES , DEFAULT / GENERIC / UNKNOWN PROVIDER * Unavailable Unavailable ALIASES , DEFAULT / GENERIC / UNKNOWN PROVIDER * Unavailable Unavailable ALIASES , DEFAULT / GENERIC / UNKNOWN PROVIDER * Unavailable Unavailable ALIASES , DEFAULT / GENERIC / UNKNOWN PROVIDER * Unavailable Unavailable ALIASES , DEFAULT / GENERIC / UNKNOWN PROVIDER * Unavailable Unavailable ALIASES , DEFAULT / GENERIC / UNKNOWN PROVIDER * Unavailable Unavailable ALIASES , DEFAULT / GENERIC / UNKNOWN PROVIDER * Unavailable Unavailable ALIASES , DEFAULT / GENERIC / UNKNOWN PROVIDER * Unavailable Unavailable ALIASES , DEFAULT / GENERIC / UNKNOWN PROVIDER * Unavailable Unavailable ALIASES , DEFAULT / GENERIC / UNKNOWN PROVIDER * Unavailable Unavailable ALIASES , DEFAULT / GENERIC / UNKNOWN PROVIDER * Unavailable Unavailable ALIASES , DEFAULT / GENERIC / UNKNOWN PROVIDER * Unavailable Unavailable ALIASES , DEFAULT / GENERIC / UNKNOWN PROVIDER * Unavailable Unavailable ALIASES , DEFAULT / GENERIC / UNKNOWN PROVIDER * Unavailable Unavailable ALIASES , DEFAULT / GENERIC / UNKNOWN PROVIDER * Unavailable Unavailable ALIASES , DEFAULT / GENERIC / UNKNOWN PROVIDER * Unavailable Unavailable ALIASES , DEFAULT / GENERIC / UNKNOWN PROVIDER * Unavailable Unavailable ALIASES , DEFAULT / GENERIC / UNKNOWN PROVIDER * Unavailable Unavailable ALIASES , DEFAULT / GENERIC / UNKNOWN PROVIDER * Unavailable Unavailable ALIASES , DEFAULT / GENERIC / UNKNOWN PROVIDER * Unavailable Unavailable ALIASES , DEFAULT / GENERIC / UNKNOWN PROVIDER * Unavailable Unavailable ALIASES , DEFAULT / GENERIC / UNKNOWN PROVIDER * Unavailable Unavailable ALIASES , DEFAULT / GENERIC / UNKNOWN PROVIDER * Unavailable Unavailable ALIASES , DEFAULT / GENERIC / UNKNOWN PROVIDER * Unavailable Unavailable ALIASES , DEFAULT / GENERIC / UNKNOWN PROVIDER * Unavailable Unavailable ALIASES , DEFAULT / GENERIC / UNKNOWN PROVIDER * Unavailable Unavailable ALIASES , DEFAULT / GENERIC / UNKNOWN PROVIDER * Unavailable Unavailable ALIASES , DEFAULT / GENERIC / UNKNOWN PROVIDER * Unavailable Unavailable ALIASES , DEFAULT / GENERIC / UNKNOWN PROVIDER * Unavailable Unavailable ALIASES , DEFAULT / GENERIC / UNKNOWN PROVIDER * Unavailable Unavailable ALIASES , DEFAULT / GENERIC / UNKNOWN PROVIDER * Unavailable Unavailable ALIASES , DEFAULT / GENERIC / UNKNOWN PROVIDER * Unavailable Unavailable ALIASES , DEFAULT / GENERIC / UNKNOWN PROVIDER * Unavailable Unavailable ALIASES , DEFAULT / GENERIC / UNKNOWN PROVIDER * Unavailable Unavailable ALIASES , DEFAULT / GENERIC / UNKNOWN PROVIDER * Unavailable Unavailable ALIASES , DEFAULT / GENERIC / UNKNOWN PROVIDER * Unavailable Unavailable Re-disclosure Warning The records that you are about to access may contain information from federally-assisted alcohol or drug abuse programs. If such information is present, then the following federally mandated warning applies: This information has been disclosed to you from records protected by federal confidentiality rules (42 CFR part 2). The federal rules prohibit you from making any further disclosure of this information unless further disclosure is expressly permitted by the written consent of the person to whom it pertains or as otherwise permitted by 42 CFR part 2. A general authorization for the release of medical or other information is NOT sufficient for this purpose. The Federal rules restrict any use of the information to criminally investigate or prosecute any alcohol or drug abuse patient.The records that you are about to access may contain highly sensitive health information, the redisclosure of which is protected by Article 27-F of the [facility] Public Health law. If you continue you may have access to information: Regarding HIV / AIDS; Provided by facilities licensed or operated by the [facility] Office of Mental Health; or Provided by the [facility] Office for People With Developmental Disabilities. If such information is present, then the following [facility] mandated warning applies: This information has been disclosed to you from confidential records which are protected by state law. State law prohibits you from making any further disclosure of this information without the specific written consent of the person to whom it pertains, or as otherwise permitted by law. Any unauthorized further disclosure in violation of state law may result in a fine or shelter sentence or both. A general authorization for the release of medical or other information is NOT sufficient authorization for further disc losure. Family History Family Member Name Family Member Gender Family Member Status Date o f Status Description Data Source(s) Unknown Unknown Problem [facility] ([facility], ) Encounters Encounter Providers Location Date Indications Data Source(s ) Outpatient 06/22/2020 10:25:03 AM EST - 020 10:30:07 AM EST DocuTap ([facility]) (WC [id number]) WCenter 20 Min Est [employer] [address] [place] [address] 06/20/2020 12:00:00 AM EST eCW1 ([facility]) Outpatient 06/06/2020 11:26:19 AM EST - 020 02:20:01 PM EST [facility] ([facility]) Outpatient 06/04/2020 12:00:00 AM EST [facility] Outpatient Attender: Macho June MDReferrer: Macho viera MD 06/03/2020 12:00:00 AM EST - 06/04/2020 12:00:00 AM EST Encounter for screening for other viral diseases [facility] Encounter for screening for other viral diseases Outpatient Attender: Nehemiah Diya FLOORING SALES MANAGER 0 06/01/2020 08:33:53 AM EST - 06/01/2020 09:55:20 AM EST Soni ([facility]) Outpatient Attender: DEFAULT / [place]ENE [place]UPO / UNKNOWN PROVIDER ALIASES Attender: SORAYA MUNGUIAReferrer: Macho June MD [id number] 06/01/2020 12:00:00 AM EST - 06/02/2020 12:00:00 AM EST [facility] Outpatient Attender: SUYAPA GUALLPA DO Main Office 05/31/2020 0 5:15:00 PM EST [facility] ([facility]) Unknown [address] [facility] [address] 05/17/2020 12:00:00 AM EST eCW1 ([facility]) [place] [address] [facility] [address] 03/04/2020 12:00:00 AM EDT eCW1 ([facility]) OutpatientOFFICE/OUTPATIENT VISIT, EST 01/15/2020 Attender: HALEY AN 01/15/2020 08:41:27 AM EDT ROM ([facility]) Outpatient 01/12/2020 12:00:00 AM [facility] Outpatient Attender: DEFAULT / GENE GRUPO / UNKNOWN PROVIDER ALIASES Attender: FERNANDO TERESAReferrer: SUYAPA GUALLPA DO [id number] 01/04/2020 12:00:00 AM [facility] Outpatient Referrer: SUYAPA GUALLPA DO 12/10/2019 12:00:0 0 AM EDT [facility] Mastodynia Outpatient 12/03/2019 03:51:49 PM EDT [facility] Outpatient 12/02/2019 12:12:06 PM EDT [facility] Outpatient Attender: SUYAPA GUALLPA DO Main Office 12/01/2019 0 6:00:00 PM EDT [facility] ([facility]) Emergency Attender: JASPREET JOEL [id number] 10/14 09:56:26 PM EDT - 10/16/2019 12:58:00 AM EDT [facility] Patient discharged. OutpatientOFFICE/OUTPATIENT VISIT, EST 10/09/2019 Attender: BALDEV AN 10/09/2019 11:49:40 AM EDT [facility] ([facility]) Outpatient Attender: HALEY GABRIEL PAReferrer: HALEY AN 10/09/2019 12:00:00 AM EDT [facility] Dizziness and giddiness Outpatient Attender: Harpal Roberto MD Physical Therap y 06/18/2019 12:00:00 PM EST [facility] ([facility]) OFFICE OUTPATIENT NEW 30 MINUTES Attender: Harpal Fernandez am, MD Physical Therapy 06/09/2019 12:45:00 PM EST [facility] ([facility]) Medications Medication Brand Name Start Date Product Form Dose Route Admi nistrative Instructions Pharmacy Instructions Status Indications Reaction Description Data Source(s) Escitalopram 10 MG Oral Tablet Escitalopram Oxalate 04/12/2020 1 2:00:00 AM EST ORAL active [facility] ( [facility]) No Active Medications 12/01/2019 12:00:00 AM EDT completed [facility] ([facility]) Escitalopram 10 MG Oral Tablet [Lexapro] Lexapro 12/01/2019 12:00: 00 AM EDT ORAL completed [facility] ([facility]) Acetaminophen 325 MG Oral Tablet acetaminophen (TYLENO L) 325 MG tablet 975 mg acetaminophen (TYLENOL) 325 MG tablet 975 mg 10/16/2019 01:00:00 AM EDT 975 mg Oral completed 975 mg, Or al, Once, 10/16/19 at 0100, For 1 dose
"Maximum dose of acetaminophen is 4,000 mg from all sources in 24 hours."
[facility] Medication administered onsite Meclizine Hydrochloride 25 MG Oral Tablet meclizine 25 mg tablet meclizine 25 mg tablet 10/09/2019 12:00:00 AM EDT 1 completed 01/15/2020 [facility] ([facility]) 500 mg 07/09/2019 12:00:00 AM EST tablet 14 TAKE ONE TABLET BY MOUTH TWICE A DAY FOR 7 DAYS TAKE ONE TABLET BY MOUTH TWICE A DAY FOR 7 DAYS SOLD: 07/09/2019 Alyson Gutierrez Metronidazole 500 MG Oral Tablet [Flagyl] FlagyL 500 m g tablet FlagyL 500 mg tablet 07/09/2019 12:00:00 AM EST 1 completed 10/09/2019 [facility] ([facility]) Fluconazole 150 MG Oral Tablet fluconazole 150 mg tabl et fluconazole 150 mg tablet 06/04/2019 12:00:00 AM EST 1 completed 10/09/2019 [facility] ([facility]) Tobramycin 3 MG/ML Ophthalmic Solution tobramycin 0.3 % eye drops tobramycin 0.3 % eye drops 12/12/2018 12:00:00 AM EDT 1 completed 10/09/2019 [facility] ([facility]) Insurance Providers Payer name Policy type / Coverage type Policy ID Covered green party ID Covered green party's relationship to fonseca Policy Fonseca Plan Information [place]/307 [id number] SP [id number] [place] 306/806 [id number] SP [id number] [place] 302/307 [id number] SP [id number] [employer] Blue [employer] and Blue [employer] [place] Blue Cross/B lue Shield [id number] Self [id number] [employer] - [place] [facility] Blue Cross/ Blue Shield [id number] Self [id number] [facility]ICAL [facility]NA[facility]EMENT emp [id number] Employee [id number] EXCELLUS H [id number] Self [id number] EXCELLUS H [id number] Self [id number] EXCELLUS H [id number] Self [id number] [employer] [place] Blue Cross/ Blue Shield [id number] Self [id number] RPR- Needs Payer Match [id number] Self [id number] [employer] Blue [employer] [place] Blue Cross/ Blue Shield [id number] Self [id number] SELF PAY ONLY [id number] [employer] [place] 306/806 [id number] [employer] [id number] Blue Cross/Shield [id number] [employer] [id number] Blue Cross/Shield [id number] [employer] [place] [facility] [id number] EXCELLUS H [id number] Self [id number] EXCELLUS BCBS 03 EXCELLUS BCBS [id number] [place] [id number] [id number] [facility] MEDICAID [id number] Regina [id number] [employer] [place] P[place] 302/307 [id number] SP [id number] [employer] Health Maintenance Organization (HMO) [id number] Self [id number] [employer] Health Maintenance Organization (HMO) [id number] Self [id number] [employer] Health Maintenance Organization (HMO) [id number] Self [id number] [employer] Health Maintenance Organization (HMO) [id number] Self [id number] [employer] [place] 302/307 [id number] SP [id number] [employer] [place] 302/307 [id number] SP [id number] [employer] Health Maintenance Organization (HMO) [id number] Self [id number] [employer] Health Maintenance Organization (HMO) [id number] Self [id number] [place] [employer] Health Maintenance Organization (HMO) [id number] Self [id number] [facility] [id number] SP [id number] [employer] (HMO) [id number] Self [id number] [employer]BS EMPIRE [place] DIV [id number] SP [id number] [facility] [id number] SP [id number] [employer] E[employer] [place] [id number] SP [id number] [employer] E[place]IRE [place] DIV [id number] SP [id number] [facility] [id number] SP [id number] UNITED HEALTHCARE(MCAID) O [id number] S [id number] [employer]HC COMMUNITY PLAN MCDO [id number] SP [id number] UNHC COMMUNITY PLAN MCDO [id number] SP [id number] [facility] [id number] Self [id number] [facility] Medigap Part B [id number] Self [id number] [place] [id number] Self [id number] [facility] Medigap Part B [id number] Self [id number] [place] [id number] Self [id number] [facility] [place] (HMO) [id number] Self [id number] [place] Trad/MX Commercial [id number] Self [id number] BS Aashish Trad/MX Commercial [id number] Family Dependen t [id number] BS Aashish Trad/MX Commercial [id number] Family Dependen t [id number] [facility]/Ess PLS Commercial [id number] Self [id number] [facility] PLS Commercial [id number] Self [id number] Medicaid Medicaid [id number] Self [id number] MEDICAID [id number] SP [id number] [place] Medigap Part B Self [facility] Health Maintenance Organization (HMO) Self BS [place] Trad/MX Commercial Self BS Aashish Trad/MX Commercial Family Dependent BS Aashish Trad/MX Commercial Family Dependent [facility] Scot/Ess PLS Commercial Self [facility]Ess PLS Commercial Self [facility] [place] Organization (HMO) Self [place] [id number]/806 [id number] MO2 [id number] SELF PAY UNAVAILABLE SP UNAVAILA BLE [place] 306/806 [id number] MO2 [id number] [place] 306/806 [id number] MO2 [id number] Problems, Conditions, and Diagnoses Code Display Name Description Problem Type Effective Dates Data Source(s) R05 Cough Cough (R05) 01/15/2020 [id number] 01/15/2020 08:4 1:27 AM EDT [facility] ([facility]) R09.81 Nasal congestion Nasal congestion (R09.81) 01/15/2020 [id number] 01/15/2020 08:41:27 AM EDT [facility] ([facility]) J02.9 Acute pharyngitis, unspecified Acute pha ryngitis, unspecified (J02.9) 01/15/2020 [id number] 01/15/2020 08:41:27 AM EDT [facility] ([facility]) Z11.59 Encounter for screening for other viral diseases Encounter for screening for other viral diseases (Z11.59) 01/15/2020 [id number] 01/15/2020 08:41: 27 AM EDT [facility] ([facility]) R42 Dizziness and giddiness Dizziness and giddiness (R42) 01/15/2020 [id number] 10/09/2019 11:49:40 AM EDT - 01/15/2020 12:00:00 AM EDT [facility] ([facility]) N89.8 Other specified noninflammatory disorder s of vagina Other specified noninflammatory disorders of vagina (N89.8) 10/09/2019 [id number] 04/13/2019 02:22:04 PM EST - 10/09/2019 12:00:00 AM EDT [facility] ([facility]) Z23 Encounter for immunization Encounter for immuniz ation (Z23) 10/09/2019 [id number] 02/24/2019 07:29:49 PM EDT - 10/09/2019 12:00:00 AM ED T [facility] ([facility]) Z11.59 Encounter for screening for other viral diseases Encounter for screening for other viral diseases Diagnosis 06/03/2020 06:26:[address] [facility] N64.4 Mastodynia Mastodynia Diagnosis 12/10/2019 07:45:00 AM ED T [facility] R42 Dizziness and giddiness Dizziness and giddiness Diagno sis 10/15/2019 09:56:26 PM EDT [facility] R42 Dizziness and giddiness Dizziness and giddiness Diagno sis 10/09/2019 01:18:00 PM EDT [facility] Surgeries/Procedures Procedure Description Date Indications Data Source(s) INFECTIOUS AGENT ANTIGEN DETECTION 01/15/2020 0 12:00:00 AM EDT [facility] ([facility]) CT HEAD/BRAIN W/O CONTRAST MATERIAL CT HEAD WO CONTRAST STAT 10/16/2019 12:19 AM EDT 10/16/2019 04:19:24 AM EDT [facility] TROPONIN QUANTITATIVE POCT TROPONIN Routine 10/15/2019 10:11 PM EDT 10/16/2019 02:11:00 AM EDT [facility] TROPONIN QUANTITATIVE TROPONIN I Routine 10/15/2019 10:09 PM EDT 10/16/2019 02:09:00 AM EDT [facility] GONADOTROPIN CHORIONIC QUANTITATIVE HCG, QUANTITATIVE, PREGNANC Y STAT 10/15/2019 10:09 PM EDT 10/16/2019 02:09:00 AM EDT [facility] TROPONIN QUANTITATIVE POCT TROPONIN Routine 10/15/2019 6:56 PM EDT 10/15/2019 10:56:00 PM EDT [facility] BLOOD COUNT COMPLETE AUTO&AUTO DIFRNTL WBC COUNT CBC AND DIFFER ENTIAL STAT 10/15/2019 6:52 PM EDT 10/15/2019 10:52:00 PM EDT [facility] BASIC METABOLIC PANEL CALCIUM TOTAL BASIC METABOLIC PANEL STAT 10/15/2019 6:52 PM EDT 10/15/2019 10:52:00 PM EDT [facility] BLOOD COUNT COMPLETE AUTO&AUTO DIFRNTL WBC COUNT CBC AND DIFFER ENTIAL Routine 10/09/2019 1:20 PM EDT 10/09/2019 05:20:00 PM EDT [facility] THYROID STIMULATING HORMONE TSH TSH Routine 10/09/2019 1:20 PM EDT 10/09/2019 05:20:00 PM EDT [facility] COMPREHENSIVE METABOLIC PANEL COMPREHENSIVE METABOLIC PANEL Rou yassine 10/09/2019 1:20 PM EDT 10/09/2019 05:20:[address] [facility] Collected Date 10/09/2019 10/09/2019 12:00:00 AM EDT [facility] ([facility]) CBCDIFF 10/09/2019 10/09/2019 12:00:00 AM EDT [facility] ([facility]) COMPREHENSIVE METABOLIC PANEL 10/09/2019 12:00:00 AM E DT [facility] ([facility]) THYROID STIMULATING HORMONE TSH 10/09/2019 12:00:00 AM EDT [facility] ([facility]) MRI Lower Extremity Any Joint 06/15/2019 12:00:[address] [facility] ([facility]) RADIOLOGIC EXAMINATION KNEE 3 VIEWS 06/09/2019 12:00:0 0 AM EST [facility] ([facility]) Results ID Date Data Source [id number] 06/25/2020 11:00:00 AM EST [facility] Name Value Range Interpretation Code Description Data Priscilla rce(s) Supporting Document(s) SARS coronavirus 2 RNA Not Detected [facility] [place] This lab was ordered by [facility] and reported by [facility]. ID Date Data Source [id number] 06/03/2020 06:28:00 PM EST [facility] Name Value Range Interpretation Code Description Data Priscilla rce(s) Supporting Document(s) SARS-CoV-2 RNA (specific gene not known or reporting a single result based on a combination of tests 2018 nCoV Real-Time RT-PCR: POSITIVE [facility] This lab was ordered by [facility] and reported by [facility]. ID Date Data Source [id number] 06/04/2020 10:06:29 PM EST [facility] Name Value Range Interpretation Code Description Data Priscilla rce(s) Supporting Document(s) Specimen source [Identifier] of Unspecified specimen [facility] SARS-CoV-2 RNA (specific gene not known or reporting a single result based on a combination of tests) 2018 nCoV Real-Time RT-PCR: NEGATIVE A [facility] Assay Performed [facility] This test method was designed to detect the causative agent of COVID-19. It was developed and its performance characteristics were determined by the Dept. of Pathology, [facility]. It has been approved by the [facility] Department of Health but has not been authorized by the U.[place] Food and Drug Administration. Negative results do not preclude SARS-CoV-2 infection and should not be used as the sole basis for patient management decisions. Patients first test for condition [facility] Patient employed in healthcare setting [facility] Patient has symptoms related to condition [facility] When did you start to experience these symptoms [Date and time] [Phen X] [facility] Patient was hospitalized because of this condition [facility] patient was admitted to ICU for condition [facility] Patient resides in a congregate care setting [facility] status [facility] ID Date Data Source [id number] 06/01/2020 10:24:22 AM EST [facility] Name Value Range Interpretation Code Description Data Priscilla rce(s) Supporting Document(s) Progress Note [facility] LHXEFm3zTuFYQxLl37/ZYJllHZAdy9FbBWhyLFq2ANxmFLUzK1PfEBR6rL9xTNQ0TWmRLzWnSqDvJNXc lbm [file] [id number]= ID Date Data Source [id number] 06/01/2020 10:24:00 AM EST [facility] Name Value Range Interpretation Code Description Data Priscilla rce(s) Supporting Document(s) SARS-CoV-2 RNA 2019 nCoV Real-Time RT-PCR: NOT DETECTED [facility] This lab was ordered by [facility] and reported by [facility]. ID Date Data Source [id number] 06/02/2020 03:12:49 AM EST [facility] Name Value Range Interpretation Code Description Data Priscilla rce(s) Supporting Document(s) Specimen source [Identifier] of Unspecified specimen [facility] SARS-CoV-2 RNA 2019 nCoV Real-Time RT-PCR: NOT DETECTED [facility] Assay Performed [facility] Patients first test for [facility] Patient employed in healthcare setting [facility] Patient has symptoms related to [facility] When did you start to experience these symptoms [Date and time] [PhenX] [id number] [facility] Patient was hospitalized because of this condition [facility] patient was admitted to ICU for [facility] Patient resides in a congregate care setting [facility] status [facility] ID Date Data Source [id number] 06/01/2020 12:00:00 AM EST [facility] Name Value Range Interpretation Code Description Data Priscilla rce(s) Supporting Document(s) SARS coronavirus 2 RNA [Presence] in Res piratory specimen by [facility] with probe detection POSITIVE [facility] This lab was ordered by [facility] britta Macias and reported by [facility]. ID Date Data Source [id number] 06/01/2020 12:00:00 AM EST [facility] Name Value Range Interpretation Code Description Data Priscilla rce(s) Supporting Document(s) Carestart Rapid COVID Antigen Test Negative [facility] This lab was reported by [facility] ruthann. ID Date Data Source [id number] 01/15/2020 03:42:00 PM EDT [facility] Name Value Range Interpretation Code Description Data Priscilla rce(s) Supporting Document(s) SARS-CoV-2 (COVID19) [facility] This lab was ordered by [facility] and reported by [facility]. ID Date Data Source [id number] 01/15/2020 12:00:00 AM EDT [facility] ([facility]) Name Value Range Interpretation Code Description Data Priscilla rce(s) Supporting Document(s) SARS-CoV2 Rapid Antigen [facility]ARTM ERNIE ([facility]) This lab was ordered by [facility] are and reported by [facility]. ID Date Data Source [id number] 01/04/2020 11:12:21 AM EDT [facility] Name Value Range Interpretation Code Description Data Priscilla rce(s) Supporting Document(s) Progress Note [facility] ZOTSIq0lKlDVTmBg68/YVNaaQRBhv8NwJBrrEFr3QZpfKIMnO1LiCVG3eZ8kZZL7XOmWAkVyEkVcEFZ5 lbm [file] [id number]= ID Date Data Source [id number] 01/04/2020 07:00:06 PM [facility] Cmnt XXX-Imp : NoneMicroorganism XXX Cult : 2019 nCoV Real-Time RT-PCR: NOT DETECTEDTest performed using the RheCartilix COVID-19 MDx Assay. This test is only for use under the Food and Drug Administration's Emergency Use Authorization.Additional information is available on the following FDA websites for health care providers and patients. https://www.fda.gov/media/949243/download , https://www .fda.gov/media/272674/download Name Value Range Interpretation Code Description Data Priscilla rce(s) Supporting Document(s) ID Date Data Source [id number] 01/04/2020 11:12:00 AM [facility] Cmnt XXX-Imp : NoneMicroorganism XXX Cult : 2019 nCoV Real-Time RT-PCR: NOT DETECTEDTest performed using the Rheonix COVID-19 MDx Assay. This test is only for use under the Food and Drug Administration's Emergency Use Authorization.Additional information is available on the following FDA websites for health care providers and patients. https://www.fda.gov/media/294470/download , https://www .fda.gov/media/529727/download Name Value Range Interpretation Code Description Data Priscilla rce(s) Supporting Document(s) Microorganism identified in Unspecified specimen by [facility] This lab was ordered by [facility] and reported by [facility]. ID Date Data Source [id number] 12/10/2019 08:34:22 AM EDT [facility] US BREAST INCLUDING AXILLA COMPLETE BILA TERAL [id number] RESULTInterpreted by:UNA Conrad BILATERAL BREAST ULTRASOUNDHISTORY: Left breast pain, palpable areas.COMPARISON: None available at the time of dictation.TECHNIQUE: Ultrasound of all four quadrants and the retroareolar region of both breasts was performed.FINDINGS:Tissue composition: Heterogeneous background echotexture.Right breast:No suspicious mass is identified. No right axillary lymphadenopathy.Left breast:A 0.4 cm cyst is seen at the palpable site in the upper inner breast.No abnormality is seen at the palpable site in the lower outer breast.Another subcentimeter cyst is seen in the lower inner breast. No suspicious mass is identified in the left breast.No left axillary lymphadenopathy.IMPRESSION: 1. Benign bilateral complete breast ultrasound. 2. The patient may return if her palpable symptoms worsen.BI-RADS 2 - BENIGN FINDINGSThis document has been electronically signed by Bobby Hadley MD on 12/10/2019 8:32 AM Name Value Range Interpretation Code Description Data Priscilla rce(s) Supporting Document(s) ID Date Data Source [id number] 10/16/2019 09:19:02 AM EDT [facility] Name Value Range Interpretation Code Description Data Priscilla rce(s) Supporting Document(s) EKG [facility] AZVRKe0pWnFVKfOkb0EpRgOqTOZbHK6kckh5M5S3dFDmO4TxqMXtx9qlJ8IgX5IgRBUlIWJCCJ3CpBFe jb2 [file] Grinder Operator Surface Tool/ptzE+MrePbVUzZZsiTbSCkh8z9+R7iocJ06OOeL07a/EyY2xsF+TcF8wa0gUAa4HD/VV/Ec55lWy [file] RbDfN3+nW3R03u/sRCpq/Pz4s/55XSgiyRwTaeBjdFnkieH+je5Z6MhX0PtRFWQ0Ezx5/button sewer hand+aF3+SL/ NYpx1TqwCHrXwJfFkJ+0gaCV+LXCGzYU8jv+qF+gX4ptbCZ9R/QOw7pz1KvP0ZJ+T+PzKJeWE02XZCd2 9kZ0HddJRdPWL1X9iW/M+HrQLyPx/pzq7nHTCfCRlN 3Xmo6QOustrx3GEcT9u75HRlMADPxjKlfPg6BO/NM47VmAiLTfMWds95J0LLSyzPkTyBPLYEYx8qzhZV KG59jcnSur7A4mwpHI4qgpYqR3V7jz+fGdjSO7u3AcAlOgrK4s3+ZLWJLJOk/dHWhFjVXKx/apOUtiZs Mohinder/xNaEg/b10sCzEh90rEyctEaMhx+2+bQ7xXe97e R1txP6hzTnccyVwA8H0m+xJelMvLaa95bwtP9ges0aOchzUzOqaKuIMPcYeT9qnz0rf4K6yohQaKCIqg CN3n4Rg3f36/W9QXPseoEGcEpjq0m1zzHjgRMI1GkBKg7NMMyIJiMh6Y5Lw9ACRweCXz/UZJMmkdhLgO aQgD7TgT10FQwesR6OJEQz8xuAM/9bs80cI0DasEsi SULACIg2vxF4sMYF7Np6gNPKERJEL64xEt3KkIZjKE6S8Xg4CXD7DxkJDl5McvzTsX9HqY1EeOVNDXPT IvWX5FSVrKC24ZVaYBtS3rCQhxXLOEbzYI6ixSl35WYZoWg7cAPoPT8YTB36+Hxu3DYPEO95u+BDtBz2 fyvNuRsE4y6OmQ5Tk7F45VOdz497+mgYtI1Mao21f+ LvREb0rXYpXcny+Pbs1CAXdxDTzgVr5b1YBCHdgDZhsLsnOGD7Y5BWxqwU2yPWBG1BaQ++Mv5S04RQRq H8jRuoZZjjLMaCoL/AVSuCs3NP9RPcH/A+BRfvq/AFf6ipghb6qBCJOP2qHxPz0H8jPouHnFReN0PrK6 gFSOWlsxngmQbSK7+dZGCurGJQk4LszFdwZYKNK9zd pWxYQLaU/yk6vA5EvmDqSHD5vGHLETyqQFfhzF7sX6LfNNMqPFhF4KCDGopZCCIzgTmJ1ELilwsbuiOD 3fbyTr4gMGsNOfclJjFc3wbIkDsP8K+cWJRnYn7pmAg4jgSFhyIRafU7umTlwpLWxzGfhNXvzwgrSpbo qlUJ+hITTjl4U9RzjWJVZuEvpLfmMrlcIcVliV/ZYJ Fsjh5aQx3XNVCMfCWmWstQBFP2qk8/Me2RdNIXLRm32A23HAeWEUAhQKXpJhtzPvYUPEWMERAjbKgtgW Cz6OXVIhSY2eEIMEnxQKxV7TD0luJLqfhfXqX1sEKr0UpbSsaU2zxUalc72MxNE2CoM2/TO04jOKriTF 9P+vEhPMsge3CS0cGlG5Jpp9dau4xCnSIp8NH8ibjl HHDKMLCjsVQ50CekGP6iOoc/Rz2QBQsREXwT/b/JQqd2DuUIMk0bhxLK9aPc0vS/IP7/yzn30Lx1mc7c gs3U3qEp+eZf2dC8Fwdx+NCkIybDA1IliJ0kDh7ByA4XkweKEAQpsKA5gze8Lq7RMI0yQv50giw/Ad3B poTlXH4YHiMNNWnz4wplfmRsarL3yhrAYSiBOotmNg QU06kGhYb4LSIh4rTYgZ+KLWGUfXAr0Rb+xPhjUGqImGJFiJhiEoiYIjuBiGmgZUgx/xqp5EYbmiIfYa dQvTWBI5Hwprl0SfO29VoVSKqepx+n4EJf9vrU/YHk9e0QTFBUfnlTihllKua4b4BbN1bHVG0MzuiQBb DB+s2S4T4ji5LElqvcaJMRI0HRWIMDhzoozOlE00xM fjXqH9EuoHNR4NJZXltB4TBdU9KgZOnTSPSptRUqZ6CCR0gLj8fnqcLx9kfb/oXtwc4jUgcN20PA4KNk Lkqr3jNd1r5NkUghu340ujeCIdR0Y7KML9U2vDXlI99Uskihk+2JLV+6j5QqyU2Ljm5WqZIaEVP5Yj9D 150ZSGEz7ALpKqUkfD4V8lGwJ5ldo/MJ16AuvRfpK9 rbEhmy8bLq18uRkgjq457+QXR+pUGo/hiePVgAsP9YmqF5cO+Bacbzh6Dao0x0tY0hRm2r6xS3bYq5hG sg3fV5LDVbyfljV6U/+7VE7fA8zX5gWn0+XD2iGiAwRfEpUY/3LlGr1iEdhYlF5ftxL57fsX5qDPhmZp nowaByNlWykB9DYjZcEKmxpQy/vTURuFf4TzE/xG+D lY2bIcEQb0T3+F4KdQwUQLj5J14jj6nCjDwb1bVRroMMifJmPiB2xqDELMVU0LaACZ/6K/XLMlGAGGsG kqjExj8yo0Px9by1Lp1amwvm9ohzSKrb8zbrmzo9t6+kwKr7h3KuuS9/L/Phf/NbBOK6eGN6v6KOqDzo 8CoVIy+mcjG+IJ+3MBnXF3VR9JCnGNybaWuxOnKHsJ nBANsT2J0BgykoD+S7rzN5edjX2hqb8uk59pyhgNU9V8L8FqMjUpU/ocFKPrcHEytpQ6AJRlnpQ6Prpn mQvxcf+exIe9nYUKA0z/3W6RXbXzme4odmCv9yjIoWe1DcxjCSOt7ragi3V3p/f44mt/JoOOCTLS7kB/ Co7v1F1c+V5BE5T1h8AdlrQ5quD+CNvaYn3SA/VPz8 xIMYQRQoZkJdM2li2DH6sptWdSczy06yIC6KeTkRbkkFY4lx6jiiwY2Y5ojKhUwmXpIz824ekteY1zVF Bl4ABzQmdRnCVukbKoSO+PlgrL0tl+fgdxhxNAHvBA6gTlcA78oX+NhMayR096Rn96HR/Yasil9OVOdS /Qj3PB8eLY4id+VBUMAdfVUOErgplsed87PiHG7VVS u7ZE2Le7tMqQ5jZ1I9AptR/ZhyfiUZPUHahO1jVRq18rz0bKv7jr+ZBPZkNQ+NBFbzUGhgNU/LGJPVvG ph0UvHGwm5/qV+UYwrgYYuvfxGsZgZ8Zh6MZyaFzxLtWMG0qgeO3Kll3N2iCvIuVTMlt25bC2ccSyeNl PUySQXYKRHKkie+rRsWEoG+KKgthpftoC7dR/Yq8q8 27jMgRZWSfpoALvGI6kPi2DG33kR5C6DTFK6DWMRmrhdk+Fsi6i2giWlpqVUaiwNMJar1OHxNiW7IXdZ TS6UJ/EI0URgvu2/nbjSyX+sSHcwxpKz9/Dx/CUKf4MlSzZkbDvWshlKXu5GyWs5nPV8CqWH9+coitHP l/tE9osqxfgZ+Nt3FfFn6VQN4YddNdS57k7JRGEuWH ykfF8CPVBpQ2ixxPeUXuUL0sY1gaJKrle8WMeqyVpdmMMdQDofQvPst2elaDcujVDgawz/0risph5SR/ eYbo9Znv0Mx/Qm7+kEKy3Ga47sebNf9D8qa96S+/PICUR/7a30E7+CdSLFXontzJUQt8pai38Nkpw8pz mmCQUuqenfUqRWUR0pmLaAE1PAltbfwaZ7FIZJg30a G8GV2zYLo4NHur+qUK18WqrEkvN/mh1xtBegQfC/aoPcCg1KKTThA8rtugdeXbPIeh6irgG4GZjMbfo6 Sv82FCn2cJP1B+fMqLizNWFoHOS67rL+5EOL8Fec7cZK9cTlaGAcZiX3dJztI454CGZ3JjAvTGYkagKu ZTbxIlj5aUztKkMkY53J0tr9MBzQiF0roa13AAEk67 B+1MGMUkccq9muGX/ABAJyK3scCDIWmX7pdq6XcajyEeGLGefby71OFlX9N8ALbFqrDjrGMFKcUFS7L2 4Jmh/TlBfHh0TitjIG1+AwhGphXuC1fODinnxFWP1m1aVigtW7rGoUuFyEvaUuvEr/cztHr4S7H9DtPp cVWj4C6GhH2xTL39NllUE0g4V7nQNmKptcBstS6e5G Oqos+RqmKnXrOxlvGVB0zmhDYoBtOEFLOo1aiyJu/Kbj7CdVQGsV6nBu/VC/bKkbDqOIil5H/IZsj5Ts k82gxbR7PDoSJrjMrhhUG9HmY+5Dj5rqC5CjyxvDDHEDE3LXDbV/dvpT/Fm7jhR/VvpT/Eh4u9BuSe8g 9pmWrin+nNpb2hu3DcRj/cch5AdGAtVXW4hZROa/pb 2ek/xNEia9xV+lDZmT+DZK9uyteD0bTAc8h/sCD5k7xOR6hgh3fOAn1FsODm7UrfLcKdvo4ITzm1B59M ZHSpM+bDVXfJe5tTI5+DN5To+ftaqy1lLbVsUFYDgUSlOSnL9yVtCplXtUL14cEX9Z6AszlreVC6HiXf hybUGUcgcvB3eOGuqOrhiIUP84XnAEE07zAL54bUKJ Tbus5+9gvbx0cs6TqNoAqa3GGQ1yNcPqfKXwghm6zprZMKzZaP5ajxfzDsqxG52oX24O/Oedm3ag2X+e CglKtwbEUCqNYR3ZJQSrAXLORUuBdFE457DvFlL6vuziHyN5td4ySvtOjNpltZykISX0AbqwkkdRL6wH mLAsxguWpvG02GIoN0yotU4Nb3XFNdEHQtea4PiuZ/ Cnnh/+u6iteXBhJqibzbGHyuoFyRZuMUnbkfUEZVyDTz8/8hQnkXWOt7qHmU0QINpBIpMY/Z6INlsmRu PuAfWjwZYz/BloniwJOQd/bnvJwZ+pyRXGFRz7zlqB6oUjgaBkCKp6G/4n7cP/VL9k/E/9T5pTUdJuMn yDyouSm0l/lUsiZ/Dd6ZjkmC2xJ2woMp/mOG/bZ35A 9r1zb2D3IfIrQrdJtLEok9UavN+l8pYz/aoljN0yTJ2SGl2rlM28d78LiJP/BCV7w/Csi6wYyA49NGgl G723jPI9EoU5K8Hpn/VE99EtcNwgEW0xyx/4k2d7+Z85/E/2FTayzw8wB58Yo7KxK2YI/N3hHy1zXNuw ofh0pcI7Y6ByDs7xnPX+1EkTNIGkCYoVoAmqESijCc sJTuM8OPZdwS8hCgrEQgig7jPdyF5HMM1C/PmieaHlSPwZVxF/xt3Fn/GrxZ+M0xn+7HkU3G39pPw0Y/ WnayrnHPypI+XEuiGqqnHp4u6wZ/C2q73eB4cjMwgbc53uqg3UOY/wp1CBP/FSCYdl5mPxUG4XB3F9QS JBEzSQj+/Yo6vnFez2DArZ7NuOK8S+lijxJ4qPMr/Q aTXK0qd8nj0w8AoimYSz91Qa8VGEa2IJ6Ygyhw9YyYyCeCAXhTEX58TRZWUHDKQT36Plzm3EpTIG8WF1 nwX/k9/xqkE24J/Sg/bs1H32hn/Ng2mnanP/Lxd/qlUDRVaU7nBzyHpY4/zL6zk10AaJp43P/Mmvhj/1 zkX3q904cGUjtx0R/kiQ22Mzutlpwq4DYBPkSuw+C7 9F/ZscFEzSpEX5gO5y9uiWdBdyH7TNljVwz4RjDgcvVwm7pW8xy3MI+I77NeWl9N793bRGv2DwlZE2Ji 0eKT1sKj2QdonMj+lHr7CtokXfWeTydEss7qRWCCjt2uINDm8Ern9X/BVCaqEwazK6A0icDT/Sg/Bnpi 0uRTuRVxI1D8pxeAt1hfB1tWiO29D5a5GPC33czeX/ fqdYdCaLTbnZBxweU7vnxydtizg/rlEzjdCGRSu8yi7R9ZkGAmW8nhD+CGywvWWhbkZ29gaM+DN+i/gz hudyxLuOS8xm/Ck+q+F/XaZTUDAbH0hlDZDujoMLnwVRLu9rk5yMRJUfGinhgxhKKw3Z/LwCkwOsT0oA gdVKE55i5SBxzS4Nv7ShqlLozhTPRNHprlRDprXFrM yPnJzcL/xPUL+M0NwUoEPuFNsUxT4XkLLxV3kj/Q8CxUD5o/XyP9+zaKb1rMXLzZo1Sf2uW75kgvDMbq XAb5TGd9Vr6VkCsJOkodRceyxvhcB02UOqKPau43sc4nR/SEmOvw3wMUhY+za2xZXspsd9mQzEpe8EpN ynWt5AI9xy/HLbdcto2DfpkaR4qsme2LCFKZZdTy0d 83dycnbeW/Ige9Kg7TrhT/kLPZLKU5i425+0ThGEVNsJqz4f/6cstLOeizJpsXL5Nobzd7KjoaMnQQwg HFIKDzyHbMvdMkk3eTz4bDauTUcfctWx9EY4Cq6O5YyWkZUZ4UF84DyjN3gF59s6n2Gt3ck5XBmxtlhK 7qzvK5LuRfQnV6NSYq59BDYsjzp5mpC6YB3UvyYdGw 8Bx1xgM0jD+CJdHLn1MT/KcpnPF50KxqSsdyCOWrmfT3ZUzX7GdP08cSZ/9a1Me9BNvlFq0wsIsm2WL2 H9M1C/kNY/A9h0I16jtP5mXdmbN8XvQQiyJ5JHy/cF17SwATb3p9/sC49YeVAq20jS97o6fredQelpsC +OdxFQ6hrmnrUUHLlrM2dl6U39SxTkF+9pa0qCgSOn DmCe7aKyA5PNJwyzg+Jql8Z1z8Dk4VlibW8+fvUAqnaOdIWh2LdW9MBC0V80fJwv5/y9eU6P/Kea7OWE oJpofWRM2LVanUe0qhZzSnd/3k7khk0EWf1SXTrk666FUfmUMs5CqLovVpFKugO+pGcDwqvxX3+2JuxF qlufailSqHBVu54S2aq/tZb295pq1lYJszn1pFzZTp MrXgyUXNCIUIZ9SGE/FZAQRLI7HyxiZSZOez5YnV3kKVQeS4FbiJtV0vUPpTvsrGkI7locCJo5zzZpIj tHzsgIQOJxGCjTgg2kM00hgnCPEQNHUWLehfZYbwndDR6Njt8S6rvAnuDPnZHAXeOhmzITwc9PV4OHmy P9PoYZMk68egAuEQ6wandI9ZkNO9CTPilYr2zceUQw kR2hzKZThGWohrqWJDPXzH3lToPr9udHG9GvlC8gITxkUbxGrinA3dTaMjZjR1EJDAeD+8EcySONEP8m H85giBqTPyMIClq5Cpn1iCrkYL5PaeJcMTa78yp76v9EG8IcmoOKHMNBEtOnePmL8fHMIcqefJAyzGic jfUcHYktTmaPa4X19IW6PaHYrQkAyB5dlV82o2q98K D44hbgoVoVXkEzdhG/k+sUb8tbIS5L26tnQm50doK0bvh6HGae88zXL+bzw6zzdqIOAZ+2MusBT1voY9 axn1h8iWjpNiI3IfYGMvF8URaC9AKYMJ+R8Br2GfP9RfSxAV/xX4hN1vpq2IUJjMdkWumo2KURJT2kuA m5jgEg0OxFHctkV7VPA7oDs+SUAIwrmV08qySEn5qG t6Qm7hTjYRQ1cQ1+ZBSgYMzS5XGkYSHeLVe4InBjfCxNsXfFtZjk9tWgXoWZVXXxRcb1XT7azm2QQq/b uoGUQIUzA3qzwrJCcLL4lmauSSf3Dydqlkcz2Jp6l2M61l7V5d2DOLkB3nbCT3Q+ySQsRgJ7kCkXwz6N 32PJE1Ti7uvltX86g6EFCPBiSRIb0Pvsv5fD5lTFZU BWcMjqhp8zyeZdNXzGhT94nA6Ws/c0+oUu+ytFufSwXGjsRY6Ne+9p+sndBz4Bu7/APN6ZwlZH8JBijB bmb13aLZ6/Hsof6PzSI4y5V6NOXEd+Q+hxp3Ff/uPhDYUT2mSMDBnaGGXYKO5OUavgxuhJs7qaaUCSni bI/zIwjo0t5VAMiXGyfkkzHT3ETHZs/KPqNZUVmnBm wyr+3RpyoDtnSl9JgXc8cFv79IBnAW7zRH2o0ZSrcVCwjVq2GIGllnDDQKStsnukDNRhm+LxG8CLG6IJ ZSmIAgjXYS6IZ0HlIHQNz0/LXoENW5htirw6pA41/MK/UIrPLmOIE182wHXXd65CLuc5T1WhrTvguRXI P+bxaBm0ctHBOgUKL8bKsiGSwAYPmBZA7YyI3C+qf1 Ig5ytl0X+PQhqwPzUusj/1VGR/6onJ/jwI+0QGByalEeGD2eq85wkO2lk0tk/fa/+jn+JPjXX3+b16TX xFPwLOF8yIf/kyQQCl5XTLo6szTBiz30qfbIOPzxzOkPwlo3J5YaVI2xvN8AmRfeZEadNrHSrPODMAM1 rql5xxNPWnU4QfXdVt8mYJNSX98SkbJajNiANiE7Nj NOFe/dQEtdCE+l7GQVOonzkfuj10FLZ+13iKP/VOiz+8wGxy06gv7Y6XH19BiX4saXXn8plfh4hvppL7 1PXixZ1d5P1F9W7dv4V1O1c6+K59McQII6Mz/MTncn8liv00yMrDWuMYfbo/e03YvS8zsW6W/hxCPr+/ 0VsXYZNaZSuA0pz04BBgUD6amkU3SKJvJtimBU2Y95 AIDrRi7Srw+/Ue1RT1H5y/K/yW19r2J14mQJfkwlrTZinz2J5FJRcT89fxq769x2G3D6aYWWDxGMD/q4 IYnD/wZj61AEmz1+XUpFfAAfYnb+or+8XLFD2i/75oc8vl9I/MBQYgpNltYzBdwm1lYhPSfOu5rugKJp 0J/kwUPQ/oyhXgc9c65g8hXQA/LyKoRkj5iTBsqWlL 5xmCN8qP+rx2BI1d4D2F5ochjFxt/wSVcgxDNp3ug0O7FZ4pAZfteUs0Bh894A8odf+I+f2EO8w/CP3U fxB/MherJ+jOt1IXmqDNGbyc2jnx7UU7tq//bvxBzp+gI3yqKGLna08vuspT1W+96BCpBMdFwftFSf26 65+fjRC26Hi47et2VGYyRh/podCERNXmKvXkvAj/Ej LYB38snpH5U+68P2K5tr5q/g6Oklhwmlj+kFBCY93U1k+anx69bnNibB5NcyrE9lFfS8Jo+f91VVaRa/ Oi+xhieuuru0py1yk6d2Q8FO/Oc3Xxp+6iks0RT76Cij9P/gG617Y4L6u6gH0jS9UvU55/mTbJxb0Y/i P848TYO3e8CmWEB/NISF9LJG0zhZI/kve6DESkSdIp s337Y3+qJ+z0m9xhcZKIizvnvzG5tze7NPWiuRWn2GKCNORs5fzZc+rZgoEe9Efn1ac/6EUcWxuxX2Qd B/3Rz/VHP//je0uqVgD+oD/4chA2mnUcU5PK/J/UHxRYN4m6EpQYdc1s4n26/k1ZM7XNXIpCo7n4aLO/ is/k/2rsBVFZtqyzGH4LIhwrWRQhPNKMJ+UbVU/OOi d74eurnaMw1Ir9VD5ONEp3u4rnNkKfuo02dFtS5Y93S1v+yy02FamX+INU81u/s99u2aFfbI618vsMer goNiTjiJVA14XddfHBw5Afs/EHTZuPTk/Og9y/mUctIvGrnow4QBeSSnMON8i0MiGVm8Xd3dFSKlxtp1 Zq/fg/OVL+q3GjDyvv8l4roR71HAt+b9exW4QDcUVV /RvjFzM2L+dI/Es6p/yfunr3/c3+x/7ssj/1/2R/aiSO/8DGC0174/bq4Su2gJs95Y8G5mtwnGkclLg1 1Q7w082399vDr/bDkvro49NMaJb101qRajjoCvaYjbRc/9n/+D/7H//v8sv8rup4r7Z0OeoJ/I8V8J3V /Tyo/AQkps9fx6Y2l0gkzZB/6/d+taaYYC5BqQGwms 9TR9r+e9DNroACrooJNxAVExgX/9TgIQ3vhAdwNvjX/qzhrbT13D/poQlZ47//FJ2BEo3tFzQYf0JH/Q HbAFVeVAmCKi/nm+qlgt8llXHB0XlOzWXbUCy7eDCvmwFsKyM6TND2IsLkIVNYNJjIAA5LIkEWgUKPGC ENKUChJVMtnqpaGeApeUqwTlGQRZW8Q9TRbsIkPHvc 2NqYcfjZYANjGJfhSyAK1WP1e5xwRbuZqu13UXOBVZ6ShKWU0R9bMCjPtnT+TOwD83noZ+IgwTbwZglJ ng9JLABWwB110qDBvxfIuhWPo/Kn8umZbzAieNjVAJZTpH2OENg4CEhY4DjL7OHoNHMSlOXxDbBssvh5 9/zOWJHqfnXop71XFEAEaxtAKHWl2oXWhnbuGUCm9r IRXSnxOCVXkn6HLZM+47pxx3g9SJJEdyjnMiOMcY9mQWzlySTq1mG5g0dSIaxsRio2N2cl+kJn04oplv 4Ea4OZ9TD6f+X6Ri+QC3THECPMGuLaXm059zi4NAxe+xeEHac3NP1exeRR0/A35ozP9mlAy2HAzVMmSx LYwr1Kj8KeCA9LfQBWY9iGoEO8ImexIFl1Py3sVjOU KmJKHGVdUBBEIeJfw64GrAIJ+uEV7DzBAGBsiIZLnpuFB+Y5DrIrhQnqCsQwG95TcxWalFWUiuVpsfP/ oRRtFL0tADcqMwNIBDxhYdOSUJdsYRHSYz9rX/RmXyAaswX1ifUG0SpfZzE9KGX8W9QYIczIJVG9JSpw +3idS8s+VOXEnPhvJAWtTIdRbQs6SWPJ02MgngTFqa thy63qZFOKFus/7x1Quu/BVshAkbfPSzfH1Mw/HFLgN+XvO7+PubGr3dB/m7kZ9kTNm+rjk8gm12+ftp VkZrc/nlclqI9lct/Y2R7ON4Q9RbQA+T/wq78Jlhk7CsfT38Lk9GdghamNDhW5e+Y2bJKyjZw2ZNGI/a krnu0IC7LSTi1y/EO9oyQnAr8WqUUyrHyZw3vil4Ov G/uWy4c1jrC4N17N+qYtNCvJzF7++U0UYrgF8elhcD80RmrU/PVn1j84xv6+mRcq/DBGi971hS+4qsJv 26GAjtHpy09oShPddUiOtvBR7V2H35z80uEr+utT9Qgyjb+1tMHt9raHSmaCE0X0xGiyKNAdmYaEKv6t +/RtKEU/+W2x5qO1eYowP/eJtcRu1j+/gt7qeGq2pb f6WqBsZaBHrQHO/MJWiZEkaY7KFg2mk00ILaWe68wETmUOlu04xSO/aecV+70a9dUcKDxfHbf+qz2rQr JpwgnJihZndw0hbA+cPa5foxp+Y/tWE7EXEXsF9wF10PpwdYk6uEIIRwgLg+4uoEmTIA9Vk2tmPEeqz6 nIWa07fq9n6TAMduf6Sc7ZvixzywKOeCK54KePat50 RG/5gYKXrT7fUqMsC0gLM0WXhN0UHWLy1/7UxNNS784xs6YaxHsp8/3++O8Oveh9v3NNk8N6U6uKCVAf JLaUX2pbX5iWlh5KeWlPNajcKf+kFbCCSmYBUJjjH3sJudp8iri0WhOwrNsWx4RnhuHgNbcFS5ey1bpv Fqll/a3P6ZVqeCPDTaZasU0suV2MU9GnszcGuj10fp zxlqc91AleuW/+tgVlMvpAWRI16bXQPlV7FCrUG8kuC6j8LoeR2r/oJt1bnZ4U9PMvDszxb9btGkvMp0 rZebjjsIBArAQwRgoLqzjTsmEn86P1GByz7ypmhHa0iyW9H0qChNuRw3mSrlObKrad8B5jTMRYcUzkdq 5+DqphlauybZB2czOYEQHE8AXuEtzBrQj1M9uBiOtL qX+DEEdTzr3k6+kYmZvlCWJWfXOr/Lf28lp1djfdsHMzBm/YsevWj2o8ksWcr/rkFL6uP8C1nfcYz90m VtwBoW/tuP1UkRoNtBfCht/BOiYKelfmMozidvT4nFPddogxMEh41iKs8jBjvtWhY+MSvX1BgNwNQCWO 0DfzdtlgL/fZBoSqeTqCnq2wNgcFo75l0ij4tH8bXU kssg9kEEgIla4qK5RKgQGRrpD6TT3pcIl3p+7VBHWAjNvf1lbZ0uhlAiWcVE3QIoFUsrdMZlNplv+OkQ l0Q7Zn8vmnBrmySgb1Ro72zy7JeenLP2FJ4p69X72FJS1fUauOygE3hfXNqKf5Mc4cOnp5Pg7Bcf3N7y 0CgyFcOs0oyIcR416XX3jPMsiJwotJ1oXyyCLSRsaU F+4RpHOVzjkkgO7bfDmZ8hf/8ynKSNuz92oudr/G7l2eU6CShsjgRkGyqV7bEWXgB81un+8m9ptfl48z kdeyt7srrM4hhgeu5iS44+bR0qdt6iSM1E4MyUexE5qXTZ4i2A3hG2sMi87r73ZaF+J3b9oKvij2rZX0 jy9Gg2vOk8256paedv4wX6JRlkifbc3H03xEN8T6xW v8oYf6GVW02Ii1aNk7XkGmE2Is+h4OSM2it6YvXr94x/NzI9jbgQO35fedJ7QfJ+guHLRjLIoL1d2CB4 IL1Z20Q5s9XmhqZw+g2k5Z893Rf1pNL635rxfwlbBI+9g7/hFfYkv6uhu+jboHWWLdjbUjlemrZAfC0H EGQ1WH0z3Mgmt9DAxyvQTgBy12nHtuyP0catMlaEfV ixJr3cLs4VhIK4lfHRay2KmDuspFdiSX7ycG9YNpcD7EfTspjmgsMvaHUDmPG1YQqlNZqUEYEZe9D7Ws JOgCT7GTzJU616D7Of+2cn+ZhoBPzVO7D0xr2AsZuO92HTYkAPhotElynra5fE+Trzeawnhzl8b3awTK 7O5OfsSrFdcDsxhMIuSMeWr/dITccpydLy564cGYA5 /X0sHnUE57W2k/Wfrf/E2H//7f//zmTsT//os6aU8ddihz+ZJnJCysvFwav9YZbad8GuvwmuO7WBqemg ZADq1y7JDUJq0k4SMidbZUMb2k6LPoAv6d7PXfyryXYa5j2zZnQe9a4XScxklXUc0q3vKHRj0v6HCdsf CGFa9z2wCKFj8m4TAjzwxQhk4m96G7Xh9y0QDxwggR kc3t30K+urqb21M9Z4fl/Jrcrvx/wVcuc7LVGEwb525sXsAitP/9tNpPJNIoIt6bllO1kmUKdsHTzO1k 1DNTWp2j1GRyrdQZHm0l5QDUYv2y3EVlyvfIBe4x0uKxCm6c1KWyxofBNi5c9yChJz4t8SWdatBIOh8u 4iTZWx1p2RXmmxAIPj6d04H6Iw5o6WMgsolWvt2k15 J8Um6b3TNmCRJxOwzJGT7+FU0TVkP/01auBRVstuSE4n4qf9qznVTlOzAMncLQXczlesTEuqdXH2718l cnddijghCdYhVaH2339uxxzrdcxmGnUpRnM51438yuxajaxlPqZvUfR58557jpr3texwaveuZrT7+28m eea7mcfjyvofSgN6+873h4t0seghstckFpW3+282o7 w6dtyvCr1czN5Glts7D82z/9T6AGzK42/IQVtFiY8aZhJmIC/OSI7/rWH1f+2ELBLrCVu9+T5YzNNHks AJN+OjBL2DsZJQAoW3i4LS2/MLUddpV1fdr15240khZd4c4CLUj/rTkmVdFi6/8n8/idooq1unqdvWr5 y56kK1E/ht+Fi4xW3N0fYpe/936+Zca5z2+VMakPF5 k87103m3pqkEgi0//9aZQfBEvdA16yJDys0bRL41pqqaGl9724vMeHx6u8ulF7HAjP9+TB2vf96IQ/C4 nkP2Ewqoz/h1znY1J//eX7f2MXmZjRF9nTi5pCOMh7o3nmx/ojN3cWmLanOwwOSxfNE6uE+hEyyfc6v+ ayoT+Fa2gtBbk/Qn+x1hvz39zy3g+iF+Na46udC6fk wL0jm7b+yFcx0w2x/Ue82W88k/0gMhJ3UrYTgvK58Ix6vWF/Tegan+xcLvHaTwU+eNNmFlxe7Ljm62wbdd /pK9Uln4drNanGxeP0Nhjr58udMQ2zSta8bump33tr09riLPb9oSi2y6C7c579wjqse/7+lkUs+Yx0a9 qvl74RHrjF9h/eq12MlxhQak6Gn8+wlcu1pxW7/Arun X7uZYAD8c6ZzZQnhWTc3H/XgWrn3tO6H/kanLoj+NngjfYyYAhT5kFtnqXJ/058k45+Ef9c4J/jlxNfv wPc7aBG0xQNrtTk7bnW5LYenyxBOoLO9bld16pg20yBo5F+RX+UUU3+Hxnqm2WQQ6XouJ/SvsssgM607 SFfySH/uVk9Z7n1BjtwfsY3LMsegG//Bb+ySa4lgJw jz4P/UH/7F36CesimHus+uA4yyjSgo1zk/6drqpBgvH75RidXLobQBmicqxD/3meZlkIy4/gBPiHRCP4 h3cW/qFeZ/DP+Bx5M5nZ/8D1Zpcj+o+vh15qpe08V3m81LCRk/Tb0J+CHCjBZl2BN2/DW17t6OtV0Xz+ kVxM/uVpER5tqYFu+dOfdyJ/+qNzBv/Q/fr8o975pd juLz5g5Q/3A/9ILiaH/kgO/eG38I/k0B/Jw+Rte031t/GBf+LdeeGfsENe+IdxC/0U29S1QXtTy/KnP3 Xsmz1pB7/HtYJ/Hp7Fxz+IZeBwCw02xyE/DGSkL26x/B/i0UUdc2HF/uN/Pv/5jma2yLq+ux/kT3/0XI J/OQqZX3yl6k/idJ6nric/kkN/ZA8nQ7RLc/I0OfhH 8k4Z/ts2ziEdnfArzR2j+Edy8I/k4B/0Fv55+No3p5rM/cOTb1C86Z/eF/zR0fI0P4llA+idaT+/8I/k 0B/Jy+Ou5ubhaNdOtu7FO7U+45/X7J8X/uF/wT/8d/iH8YR/6XU5n2pL//Ow9M9lB/wjOfhHxwf/6PNh dlGM2bI/cPy+DIFfqci0NK2i2p/n256Ag06upmxE/h kcH/ojeacc/EYcUjP8Puu0fgj0p2/3ND928W/J0+JDO9c9ImlTulB16Xagl8CcRzZxrI/cD/wjeZmc/N Zfd7H4Msgq+S0ph/4sjg/1lJxnDsFHZxmkj74wkiOOOI/G+nspl6Y8NYq7AoEqV5dW/rzIY+D0450GL/ zT+Esf54ySF7yU4i3lCClu+TU59If/Wj2Ejrta+qtp /Mae/TS6Dvuieo6NXtbIr18si0df+Qb/yC9q9j2E/YilgZvOK2x3qw67vLiEyRi/ODzOH/uQs5iTnyt1 2Kn+rQXiPME/TtpB5Ruc57OxU/3Bzm+2/mrwT7y/Jo5sdYL7u8F/gHOXH2ZKspyh+Edyz/cI/dV6XNn2 gX+Q4R/JJd8p+Efym+8U/PD3323P/pEc+kQy3ho77E y/d/gnnm9/isl1p/yanOv3/uT6vT/A4IExeH0x/xcw3IRvnkMlioIfi+TQH84D/2bQ7HldiQ3f7H//y/ inwz/xHDv80/n1xhQrw5ai/pEc/XJ72gGfzR02poyf7N81avg5R4qxXPeRiX/rI7s84eGR7Rjy9D/kfd emBr5IZVzbUcv88Fmpsb4+kTxMnjOPXybvlOEfycXk muMA/8vdLu5jT5q6f8lJ/0jeKcM/obq3v6YdK3k4/urwT+f4XL/3kfNXx/4LmB84h/6NfP1WGzo/ktP+ 6dg/6Ny9t4Am4yTjo0YpM+MbjitYj7G/B7le+7DL/0Qg6wvEbf3/+kr/YTf/Tzf/T1/pP+zm/+nm/+nm /+nGPx3+4b0L/fXoUwlW0jr7MZxvQ+R1fRod/on/O/ D/xDp94P+J+x/4f+L/kcwnqE1M/0+Mz8D/o+PD/7M5z6c/JdZHg/WG4JtJo1zv/HZpC3gtmqE+CZ0c8E /89wH/iU1T322n/09cV/4f5J0y/CO5mJz+nwH/xHgO+Z+R+0oZ/w/Sy22bJptdBS6Ufoo/JeVmcr/z+4 B/JE+S70xnjji06K/EzeDfaucW7TNdRxhWf+dMeeVY eg7nP5X+5wH/GX9c947a3O5Lvyo+H+QddJ4dl+Usmt3wiy73P43Ing/qi7Ig89cj2E+W6T0k9fZb561I BvwjeacM/7mu46bv8W/JOX+N2UzuK+Ui1th176WK/pG8U4Z/+O3K+EaKG0SigSv/DVt/ByzHr0e2C6G6 E7P9H4O6K8F4JrQ+ttlE2pbTMfB/EMx7OXjze1Dv/T xgqrXBc6D/pq2/VqoDejhYylX4cbt6C2cgxI5UfbsERgF+rQuIAx75OpRwncj/g3Ll44fq/M7fV2g7jf 811+/T2X4k5f+Ef7j/2kxO/+Gsw+M0E29abkGs/3kG/7BGmME/+GPnm/lmWN5KbzWh/0w+I4vEEKK/Sv hnZvDPo8/D/xNrjRiyQQeaif+H8Qn+KTrm05/KdfH/ 6Pjw/eqg9Q1y8Kg/T/iH/wv/nHCayz/T9r9mT/z13iflXjUgr4upq7lbb3bxr6i9t8SWJhkX+Edy6I/k ZuTzw76c/2qfugo1P3La/ZCfrq4nQoXfDLd9JT6vv01mp/7ge5/BP0eeO+Vl8k45+KrX3wVgg2auX/ew cv0+V67fJ/bLK1E0Ddvza6z5H27/JvyDLsE/vIPm/5 nwj+T0/0z4R/NkoHt5Dqz1L0cFUT9/dcE/euwZH3dU5eT005/46Ho57X/ZrhN5l0a9c/c5awzompBnnr L+WcY/S/hGSaxYVGDRz6ltk8mjsf2t+Ry7zWn0jijsgcRrzf/tv6+I03In64rDluC9qwmZ0+R1/WML+w u11ta5rIi/L+adhmpyVrc904WNi/iGWMjaW62G/Vnw D+ex9dfS+faOWs0oWWXb4tMi/LV6+l8ArsdqSDAc/sNl++9L++98Xk3O/fc1cv2+gn+KN2rpM3fEGugC /t2y/fcV/IPvfQX/1HjfV/APPqIV/MPe7gr+eRRe+DOn8fXM55/+PDr+05+H+w/+OAMrNi303//0h7lg Yf8w/lp/Iaf9s+AfxhP+4zubr7AA+8lagY5K/IMM/0 elQarF159tOonxN8MuZr+L6jH8C9rRK3Zn/tpP+g/763tm86j+kz2xdaZ5319T/3B++EdyMbmanPPXLs 3knL+2rb+27b9v8/9s+X/iHsz/g7hfW9rncx6/xDPd5v/ZKvL0pm9/4Q7+FD697C38n7W/8YUlnD9Fma /UR7lzhb8+yfh8nnFbxbi89ArJ0bkC/+tcfI9XqbmD /tfi+GYy9g/dCUs9zmUaj4fCqV0QQasOnyFa4pP2l+RPfzSGwT/CHSf318l61jCsGgmC952uF+3nDf9I 3p4qBtT7yaqF/0jeKWP/TL8r79bmc6R0QD3e/meb/3lb/M82/8+epj/BP+iR7sKo4eb1rv8VXtdb1SWn HW/5m8Wf3OYbhwuaf23C4M+ehe1/bfiH+4d/JDeTc/ 997/Qfbu2/Iy+Tc/+yVDVTCn5atXAW822ZD5AuTjV1h2CAfBTsHQ8PQrh1oXMa4mah/WZN04AQYPJx2p 1RXPYiAh5w/AfM9XMpYqAYGEPq3e+6lHJLmrhxfwI57bKGcJTkovJbIUQe2nuK8xXpyInKWA2gJLkCsa G8Mt1YUgBdDVUD9jDhtBJYKtqnI5BsqwUI2jy4bM+s TJzCPzGaX3y1rTKtWQ6wsQRaK0n9qpOgkv/RNX4QCeyam1O6eIVOZmqsB1jQC4kEBrzZCtKLjCRsuIXd 0kf77e1Xgy4t0T4jiNoxg5WNaJSfaD6MtsJ35xmxs7Vh9+Iq12F12C5Mi4izs1cYRLWkOYREWe1GOZRW CBTehXrlBaei6OgU7JTKLql9RL4P8CQfDou3qgTqo4 P4kFqAtN32rY9kot2w4mdVmSuEmhdc2eAyUmL0wQ3idl/QETxlxC4HETgG87BthFVWxAicl2ClcBbuXg 2GqMUGhC7KMv/FtvlLsX3+Qtioj1IwdxYEWi+Qe/0KMFpV7badEHmV1PHhJS3gCNaKNqUcrQ/9IP5qpC CZFuTW0bYbUf3RWwneNZ31HaPFD/zZtd2Vkr8HOS09 AYs+Kgq/IpQ0vGqtL7xBCgRlrTMKMTGcTAGn1UoxLIAghPSNljDlO2ORQnRA7PcASnl45+C4qpyMtzsc cgjGfjRuwW+Spy535fADZV+ACaf74UhC70MXoe6Ee3fBnld+iX47ZDTcPv0QwdALAJONy7EoMtcRENk2 FRKomfhxy0faKNb+R8D8JBlFuCyLSdK+K9D3mQz/Ym 2xLliMCQk5aznFw6ingQ3tzKHNswu2qQrpJhM7ADS14bxvY39CZiVCIT2auu4ZoLsfaeKp8b6w3TmkRU WmcYJIimgDugaO23mwkbI1hTDrk60Iodd/pZj/dnXDBF4qrbkchPJQTjKNUVwNILAthIsniR7X+23pMO LmVJlHyYyEoExXR4QlpExuPJN2ZEbt6hqC66WZHSdd /ErQ4mTTdhpBhB0aC0hotLkO1RKrvNHMEPRclht+xzzA4o1I95g+wFF4C81QSiUgBfaViG/u0VAQ+lBA UMUZWV43oSfE6RYn27yLwyeDKA/bLNPrI9zN++7KrIFpcZfyhNy1oDhHf5JoQsJSwWfSbm76oE8MBvxk 50Ch0tlSUI6xDFQ7SiPgN7F+w+Qn+FsgsweKwr/PCU pmv6uQjNLqVkZNIVlGZwfzoHZCwSIfpbLBzIrTtrrBSxKDxAAa1WZssGVl3brOtnjdLrJ/VUiIaHDNMo BOWwa85vN2mBwZOR/Sfk29C5dNVWUfIHe+05QqcjHhacDJZRjwOJw3DsNZXzn+Ldsr+W2HkUJCXAQUe5 9lLLfAoF4hWJfqHRqxYlDP4Dc7ZoASDiMgM6PQz75O kEVZfqyOCfPhU7mzhxHaoF2ynfyUoddgCMWXpZ+vHHRdl5xDHF5XyrJ9awKbEOUs9Aixu+ha2HOt8yCk Eh4Gmg3f9GX4Z/vZ2zHVNx4Z2glB/FWJGUiEeD5cx7N74zeM5exkAHV/GMOQpqtKJKR8WLyiToDHlpYD HSL8tAhV1te4F2oetdVjyCjF3cS2AKhhWD7XNqQG48 yUaCWHay2msZRF+D4A8gTbQq1Lf48KzfOw19vWv/am6bBTx/I6vynE/JY2PdJXyWAU/V9Ps/M48+KB5u FHsflfjpDth9Dar4g83LOkY0uH11uir/gXjzgvCjln+oQTjlL5UKAjRXRghQGebWcgSTcN3FW748e1g7 V+WfAu150o54Sb8v2k86K1Y/9/RMB0Qc9Z5OQC7VLi HM7m/jdFoZ/DjN+BY3irOIA2KaFFhtJeGXRqKFqVuQ5/VWWCFUmEYstrmVWTYotEoWt63d1KDNjnvej5 +nYP+/XWAevx0MTiw6BpDrQCsv0dfDtYCxAM/ohqpulJ4v14PmRKWrSnQf3HHhLJcDPPAinPIKPYA1yL S9YQs2vGBgobh4SF3CqOhYIb/MkUtvVCc/tNwernsD syB7GrLX9b9NlXtCL9QdKRhtYp/9bc/1Id70D0Y50204nu/KUri128fv5LTF2iqTM3SbK7Ns6l+61Z/k or0w4dqj0PWw+2kbpAajt4CNNG/SJ26lQQ8odEuIN3GkE4BUCvoI5FbtT3GBEFcNozYHm4hQOt0ZyuXU eHDwJgMopW2JoDjx+wQUwbTu2kn4qH6p/oN5+vKLhd g9Ki50Al4CPF1i0VSuikGQmOL3Pc5pmRKah/+qrhQDxQ8H7ZgE3r78FgwCsdH84k5g4nBTP3b2Y1XyCD dL/Kqh2wCF+KYdZaeb3qBzq0r/MFhIkuQJYMLCzw1a2ytU/mwC3M3NcCq68iDFa4CFH+RK3x4qkJEgF/ rfox15OB8ODA0lm/WQiAP/+SRqAAzwXQv1tYz7sBDV WDBuNfKhZDrpqeVfQMYxDGzONOFNi6B3cfeQL0/PmnwW/8rU93l0UIga8M7ulU7E5V9ZA2vLPQPqKpkw VKy4aOEPB15vdUyg/vpRtuFG61Lksi64GXf2rjrW8AOG+kgfQ97nR6hqa2Q1sK9V2wAvM70FuL9P3a+6 27/rR0oSq7v/9LGDRhgEvVGT0cg+69e6DvMGSnEjmq Ntd1NV1Lsrtd3o6CDvs3uKG1Q2GL551yzo8Q4cZGIdohI0UGzGb4m2o28S9e6HqExaJdzoT3T7IAjWCc YGyA+JoAia4ik9dSkEWXuNbChusfxEYEfAnl/EvnwvRFFF7C8iYAQc6zXK4+iSmG4cILcYQZ0w834p61 6r732f69QBcGGTbzzmeV1VmJPg/H6ipFsqCB0AYm6I rO3sWiIsvEhSKrJvwFdABbnrWcKpp+QlC6Nf1DxybWfn0Nht2JDL9x79gJ302h9l7JqV7LEWQqT9M74g rr1tMyJQC/gfGbAu/1FJzfPPS+DN8/QzL36zG9rvr/h6+U61hA6PigqlJv3LJz2NSgrOLjNxhFI3TC/g SEfd1LHXrcZcXfD3zK2wbhgruAxNlNv4VdZl0T2UpG 7ExA/qPn8/Ji8RlYTAK/0iVFQc8bVnLbzZhFIU2W9wYvbCsWvWPFp3XHiFbmtBn4HX/4TQO/bb9+OL8N J85BNe7wur5AEZ+xAsTi14XV/xA2o6ZeWChkfCrj2moDtgKG2G39sReotTUrmbgEGB6/PZ6PhxIkg1cK AGDfxXrSySgKBZU2DoDGo51YKW0pmzmVd0qkOPM8/3 O23SyR7uw2g0zMbso4qLzS3caPj3/4Eoq5NWk/ftwJN4SfD1K0K9m53hZNnJZQm37WIH3h8lCjF/Cm3a tQ/dRffnLGMB8KIj+sc9aNnwXjCzMXLT+8K6CduqE056lQ1Fwyzmd+/K6MfgnxvCk9fR0g3Cry0Y0Ltb XJDdtR55TmhPfQ1qNl32mv17bvVgJN3MqK5sZq7+ND FOZ/tEUHiWlEtdGNcBCnyChrnGJzZi4aZTX/HZDlZori/tO3urBljzKpmiEqx40DU7f5CmSnVYbvAn+m +18N3V84kln/wTC2Fu9+RMH/erNkvwlY+TTF//UXNnxSYopKLDG3r1hLZWTCpZ3Jup1KdvWGbwyvnmAL LadMXgu9kfqXPpeMcrTa789QKzL7H+azFRICtGIhI4 CdnkTCBJZGnt8amUY+IUxAezCgO3nVJmVxN+JtZilKP8nb1lexIeHxQozXAN1bUVeww+r7C+QHaIOCBA L7LrwI6P9yFAMECFxAXBv058l+7VUra4PKoGieEkO8+bp6xv8X/veqPXfjoJJLtvHoAgEcD0nHbCISPE yET5Nbwv2XvthZttCYupzu/G5UH7k4LWYrqkIzOEM0 oGYvCW6Hkn0UMWT+3lRuk6FNjbWn9wo+O/8n+J9X3hZ3TXXB6RTbrq5OPtYt+iWrBQLBSE4e5m0wmp1n ByfxpNwwkbkVVeThKykWfA3mWHWy/OzauZNQPfAzFHsYf6K8XwvhOBW0dhVQ0jjR8gfEXac05FTNLEzw YOXmlvILVAMQfjugOKjbwOugOcB+E6jWcj1C8KAZ2a yErVGApkd50YlW2xA4DQnk3+802PvxesD09zKWs1FBX0Qz3Xmcza3Yyqfdoa3+d/v+wjiqvV7oVwjNb1 q5PKae3TNGG2+BqnAD4ji1rHV1VvW/tb0TCsPGs+28RFjGWn9pF5Y5JlK4wSbdKfS0CTiHIb7mHjKg96 hWDnSCDD0e2cj8BjXGfZAzNymNQQ06+K1oqPC/qYDl w40eP3s8lYzFOPz60VfV74zwXMVpQSnUqWoVttNliYdlxStrx/5d4WGfWlXqLU7G2i+3r0+3+9+Uo6C/ PKHstlCPRoT3a53IiZAv050o47cr/ZrlNZqFCv8poJm97ch8kf/9naiD0vw0qc+222/b7bft/Lu1oJIx A/P3bt8/3b4+3W6/KXvhgOXgT/3SLCBYH/O/0TX+lA 3ak7A2Qh/il7KoYdcT5Xo5eT+Q/hC6xp/enwUsfAugk8fJ4nU84XQ+JK462PPaMdphaTjU+RoKWnki66 PoGp/nwP2Hilcqe7X+geLdeTmHaL7IZ+ipo8P2eLGup/owOiX3Yj7BqvlrH9HJtKCXieE3NOhZwX8GQN 3E+pSV0iDFbcnDQ2T+2P5hKj4hI1CzClq2xW3rWUl1 jU/OLRrkJ3NSV7z9nj2rT8erNPrRkWKRkFl7uyQmKd+mmC4bAAAhNcy7G74OcNfFQh/Rbckv61U5Yzc5 hxaJH4EA+Ukp3Z7wVYq/PaDbULF/qj/H/cfGm1Yb44V03/1zXGoZRiYlVXj8BaajTe2IlIDYtx8Q7Zm1 n572ZkaEMo4QBR++FWrdkr/AcCQAmCEc8GJx8zz4sb mpLks1N9X3+F92JnnZ64GPvu/dQ7iY0t1oVq2vsf1N9MZyQ2OYyNEaxm5gSN1l1dL0o0C5R2kn2kwLrn t83PVc9mSKz1eEeh2Qh+Yf60PK70UTjnjdijHfb+Ql25UK58H1I8cDkLHsdzD6QsViX0ilE5QIT6btr2 D4d4Tt1pU4jffDZ55oL25YyOQK1cS4P1vwr++txYqI ANMV80OoLbTnLlLux350I6OEs0Zx0wpVYxqCktBZSruVouaW60cfU6F+K+Z/i4u9RkC12+djj8W8oXtR mjLcHTmzJnoPtWZVgrox5heVqW8hlrvuv+AE9DV1o1ij/1st5n+rxfxvtZj/uLpej0DuqbdEG33MOMo/ TQscJgXyS2LemPpeoFi1ug4Bp5QV3PjH4I3beSZeKz tBNbYwCxxs2dw82FEnyp/AVauICB2VYW48ZovZZjY5idlFPqBlucxpICIOspwR32ue/Eb+gpSiqgaHvm dErMZ2O+kaf+6N/AWNAfkLBzi/Lfr67jbXpo/+VKNX/aVGLn5r+QsqBq+KNAanf99gyV3ix173D6/O4k PoGq/yyXSNVwQeXePP/VI5R7tFGSz9C0hb/AVNRuQv WUPI76eC2WP6/j4F2z+e1mXFqczdLUMa8TDMc2gzmm/ValXKqvIXKHGv/NLWvwX5U5vNLb16TfglebLl w1woDg8REbk2C4dmEa3Tg5xF/pVBhUGsJ3N3/jP8P75Z7y/JXzhPG//xOSkMZlm1awWu/b10jU+Q7Vfo Gd5vHbh5vnvTS1N/TRfF/6bbwf/26BtvgwC/6THK/y tU98D2KllH4C5VneP/Ozdjd4aIZ6DL1ri1hegn6k+dMqeyd4fN2R+vyl/MwCYXlztEjJOvE8Mb+wtVpe 2l5La/BErLP2wD9vcB5d12VcxhQ2XN5H5vQwJoI1cMG3Q10u76HA6NZ5s/wWowr5MID4Ym/bGI0wT3y9 +D3uR9fo8/9Q3YduWIrW6cEJ6a681d5zIDuclqx/Pb 6003Xts/ra+1/dhci21W+siqf9Oi63ouq5ab8/PFV0yCuxk+z1lr8uoNJX6n8Cg/Q2j7Iisk22nOTvEo lIsiBXKFnk0cMZXUebRWUFEVCXufu+NGBJKQza5obQPtzmbQDhwd0+epL15kjNJO+qdjzqnN1aMeIHAU P+k25hv7LRG/eJxOl4j7yQ/8mX/IB3v50hIoTvgPj1 A1E/kLVQPP+vRVI/pgI9ZBoBjZYk4cg4O7acbL6hBpAhF4/NOq/AV1VVH+iFFxGAm4qLDyu2ZtVNcI3t 7I/XZ2jAftVaxe2gId/Jk+yF+9CWunXldSPs9gHGUg2eUEsPB+IX/cpDabF7IcSa6WrokGloDTEGKvGU QHWT+KneWMr2jJvWZdMv7IKMx/63sbV5gZR7S2j/Ob 06TuTfkqBYdT45jy1neR8k/u4yEfCblqs1qTO2Vq2QPy1sg4agt9sV9sMuW4X003at+tkLkjCfOc4ANq 6w6j/EFYiw2FUe0RQvCrxj2cbf6+Pm2+Pm2+PvUy+2H6LevKR8btviw/ohzzmKGOot6uYBoty78ngRTt Ncq9yWaxwp11GGMWo2Z7r6ksu52tm+TL5rSRL1euMI D809os/9Kjs2KltP4P+fJmf6g0XK84UU//gOkg/G/pUpxJ6Hu/aQIoHZC8gf6AaDcq7Ri/9wa/6S/Abw jqpFbsid22op+hkiRv0Qzff8g5afMaqiY8egwADmavcf+9wzGoS2iJw4wcloRM+Qtyn5G/IM8c+QtFre unnlW7od5BKMl4iC/MwVfGLW4iX9aiwiDwKq3/oZ78 hQ2w/ZIe2YNx6ujRkKep2GwKvr1Kzi+2Lg1BbRB8m8x8pLZnn1u/hz3ubpEp5RSV8/NE8e8GgdfSB8p+ rQsmtfm8k7c4l2n6+15543JidlL1y20E3j2UaOpk0+Sa5qnmuM+f1i0/z0FqkU539HiWuyA/YNq4+fpU Lfl9YW79s8t3+khV+XdG21i7JBYvN74vu4+xJl5dxe Ittzaj4YdAHe76jGXxbfBR0AzdcLSMIs0GihumNYK7QlPT2YuzS8+j9aM9zkv1i62zk0adA8I8e/y93Q wk137Zyve9QodP+Az9Aja3CS5MXsyDgdArk65kbk/VXqmtM0tDNoJ3J3zet+8vKH9B/8NjD3j1/YXuPd tLa3PfW6uJsf25jnj+4jcVX93XQylAmw1mKqQZr71m 5C9o+iB/WB9w8vqB4SGecEEe0dou/QXlLxSBbKJVh++fDve/KX/nCitSPcO4AiIiKB9w4Gb/D7OusGr5 5+PpEjvv56u12Un+mC+o+T/m3I6ElUguUn00rRTWDDp176+EVU23BaCct1M/twx5f/MpsRBODu6gPB5u 4I+RKaLwfnJBbib/tO/KY+NzM91548jvLbjx36gVZ6 H97u3k/d97/mju/QnT7OT5+Y82tb//LrjpS8oW+LaLc4hxyFQ/SE380CO7c7bgIqyFQq0E+ZsT4/Pvaf 4mS+T6yUqt/SlbzKj/6gb0vB7C/7NM3EZQqC7Nk22qR9+5U/8X1qqg0Hcuc3ODjk2Uj4EbErq3vw85ur iIc3fWHbqakpwPk7iD05zzK6grrAr0sjxcZ9FiOIaL j9Afxn+E/pSQZ+dJ0JMg7bN66+ef/jwvoeif/uhZf+wV9sB/tKk9+nSVn9NIXaawu5p+cA8r+pKjAyv6 ltdR5q2PGj2LEq/pO76km1lcW39edv3S0MJfHNSzjCpsL4d9i7jkYyri2Kazu/4u36Owvs+HyaE/FTn0 h/uzrR6muKsdkQDmLBYhgA2Rl21tjplos5u1/unP1D Gf/sxXW8o/wEtB32Kd/p693X+/dQY7F5/+9MJexac/uHez9HyBb4M+/JuXhCJAi6FUT/7akGj92z+K5x pxPk9qI0wcuDnqYR0W0Xoffr839y4bIOS20Bu//zruB84hhG/Jnb3iWx+D42ZyaiHOm1D/YzPrP8Kah3 A5XZ8Ospq79/J56E/D0H7u+8Evf64jyJ2Op46++KrC P+Yv2Z2s0aacTI1o6W/WwuS+a+H2/+nMsbXPexdO/5+JLvvze4/vfX6jjZhjJV8f01B8r1JX9e4cN4m/ +Dy8/ee3H/3toRcfKC49SafR/XMkzOq8dh3z41l3BdWhwA/8g/trc9Fm8MprGhwxIcOFoN697uZ1280m +sNz+fhHnBDO/oIeEpvJd3HY/ujznZ/DP3wO/3Ae+I f4rX26kdHD0WLyOZbfSbdBD1hyp/7sYnI1+I3mfE6UA/zA0cPA2Vz+kRz6E8/mBb2FL466CFk1Ub94CD 0LD/5TK304i0f6x11K+011D1izs1e0fyuNdR65P3+76ppl4PnfE+bmgynKz06pc0wPbj5c/uile26OUV 3FsS/8Ezrwwj/d1J47F1Mcbmnsjsy3XTcKK/+Ebrw1 9eeFf/i/8A//F/9rarOr2TqH+6fFf8T+MIirw2JY6UO/4ayo9U94d+JdCw/7zx5FeVm+GZwn+Kfz2+Cf zj0E/8D/8ChRa5Al8YGfh2gp63ON6fV/cXzOXy/2T+XzmL/miVlvjapry91u7A+uhf3T+PvpL9CN+4d7 mn1RbSN/SA77J/wbya4qpSK/hD6/2D+Sw/5hnLF/LUCIANO f/hBteXBpe+KNj2D/qLgVP1WsG/cM4Y//wvLB/JL8mh/0TfPhi/0jG/okxx/7hfcH+4b0I+6xVODNT18 7QsY9/emFsP/4GN5ni4KxR/n/9300U5I+6uq4WCtt780wMeS/V6ZX//eNCt0l4S/9cuXwyY/Lxzzn+e+ TnPB//nPN//ANGY+HWGqEdh36r+5/49/zv+Cf+L/Nvhn Igf/xBg2+Effc4wMdoHKc47gL//NTbE4m9wg0vQgpv+Bn332Om3M/M0dW2SNm7bP0o/uh/XXy+erp4z+ xDGsv/gt6y/OGeuv8/fmdri807KnenpflcEe/dxYf+mcYT/zH1l/1BvzK8YP/gk+afBP2G+W6Eaevrb1 cKFf+dMfbINwoIvbw3/+e+50m2qNWpoLsoJ3Hl8n8I l8mlHQSQi3+D7741nhOg2Kr1rdv4uHZ/eoLsYMU8M/OxcTmPusdzHQ8Tl4k/6OU4AEp/gv8I/k4J/Q2w b/SA7+cXZukG02hh5S/zT4h/EFm0Vf1B41o8RC7wknOQjGQnlB/sHODw/57wbjnGH/hNk2rh2Bu7mHOn 4bGORv/uqMT9g/U59/77otomlbj56m/mhR4f7O+4cx WWk/s0O7p0Q6D0zklXfR/mS60jWCgv3rq4KU/gtER60Px/6R3EwO+6dz/DA55i/GFvtHcuhPjElMCZpr OusvyaE/kkN/Lo9DF3tlzYDZv86v0E/D5/APnwf/xHPs8E+81x3+mii39M0V/1Y57eRsjK27/UD3WTYy I3/9S7xzCwaAc0dLEiNZzVu1NdtF+1tN7He4ngV/0T HN5PT/dPP/gWtQb2F/wpbr8A//Bf7h/8I/rSkq5utYUq9thAO/GFv5f/g8/T+h9Xuk4R+eEesvninrr8 Nr0ri3ek4/utZfyKE/+a6ubwbfbV+STX+Ykwq4Jtc5B/JuqgqF0sH8s1N/NzcDuHdE9H//F/5hHOAfyW +OD/zDeOL/QVfN/tdPDsdv9J+GvFPG/pJBzV9fw/3T sX/QB+rhoZbaH3wT/LX6oS81kI+cvzr+H+4N/kFP4B/0wfw/Zr5bsIo/0GcW9o0+Cb7q8I/k0B+OgX8k h/5jTPcxIwXW2fj+rXk6rptr/p8O/3Bv8A/PAvsn/u+w9deAf+JdG/h/hvYs1x1xj/bcVa7TB/Vv4lr/ 7ZZYv3PW/wX7CX5xnFUT/w/Hh/9nVj7/9Id5Z+D/iW k46I5HCq+M8JD0IyS0l+V6tI1D8Vm4WT5MeU14a/J5nSm/j49xMR7U9blEJVlx03rQD0hH9T7v/cH6S3 RsM5GT7wq63883pR527hs/D+OfAf/SckLoe3JKgK+q4UmDvxeQTGzy9n+B/cM4Y/905LB/ztJV2f8EFm tnI6/rq4+qJvD7rPtwEjgK8elZd9jJ2CYtuoI3WkOK pr9rTQFfMeHf4xgP+m7eKgx4X/pt+H90zvD/6B7w/6An+H/QVewf/tfI/Bnh3h1dPu/FWME/yOZ/HuZ/ OkYG7KDbxy//D88F/4/k0B+zFg4vgadefkk4Xi4pjaccW/yjz5m/+Twyb2GPqsMi9yAp+sN54B/J5fo3 BvwjOfiH+4R/+F/wj+Eu6uvolZBYssc+ifGcT/oPp6 2/5pP+r6u0T2O5w/2U/vm33i8msk4KTmIW/cEUk39ito2envErRndd8aH2l0vT/dw8EBy7E026f0nv3a +Z8v+ELP9P/7i8yyIQCc0e84uoCaTwH/cM/0gO/OvUq2Pz38ZX/xxHfpnsj1kGz/UX/531F/8d/on3d+ L/tzyfIcf67jK+++nP5Pzy/8T58f/wH8P+6fwX/D8F +vFs7dWppoI2Y56/+rO4B+jnah8B8env/uKcQbbqtz2u+o42SYT8KQqPp8qmB2rhR5Diu7Qt9o/i82qf v28ez/8Mo6n8F2mgDgJW+otxxv/ckdP/POV/juPxP08+D/2hLSz+53hPJ/jhFcjhEr92KB/vOn3K/onn i/5LlHyLe81+mH3B79n7m2vREm2f5Z3/D2OO/4f/G/ 9l2vGxWYZvkfO03kWwLgRms1I9M76ij/MX/qWJ/0efp/9n4v/hueD/4X52zl/T/D8L/jsU8qnXW/6J/7 7gH8nt+oUW/BNjteAfycE/L8fk+mux/iVaDZ62ZspqB94A/0jO/ffF+kufx/zV+Ir7rInW+R2uI1Sz/u M4JyqLI/4f7g3/D+5N3g8UFo9KmF3yp/4xes55cLW/ zAr7fmWnWDN9M/PCwv/D/eD/4Z7x//Ucqo4dCnwZO3E/QlcX/p/gqCg+Wt1N9eUM5of6x5Rwo5AW4S/G nP0v/jv7X/YaUmup7fVX/2VJUN2q3qmZS+7m5nUvpzczL+KnhC4Yfq16iR/tv4cs/aSjk1NR9c4V/yA3 k4N/GAf4R5/Atu2p3I/PZaT/vHp4zEqeFFPQMxbnxR J/garrf2g3RKdGzIZvkk3Q/o2vu5mbSVNdFR1LQOtaL9sksDoNwfuUH/WxRqQT73U9W1ozMOd++1rT5N w/Xdg/jDn2j+EbwtG8pOa1Z/tHctg//C/5f/g85i/Jy+R99+I3/h/GaL7p8a/Z+H/UdrZd+3Dj/1l8Pq 8vaMM/D/K+79eW/zk+N/7Z4p/9A64p8Z4b+KcjB/8E A415D0bO0/w/G/9PRQ7/T4z5xv/TkMP/E2O18f/Ee7Hx//B/8f/wH/H/8L/w/6RuTE8C3CHAmJjur/4F xwf/VL8EgOkSORSzDl1nsHEpJZVCjQc/Av/EvLDhH/678c82/tniH+RyuXpr/QX04xjou/5i/Fl/VT4P /gn+6YKGVu5a9/p991y/b/bf+N7654Ni63OT3N+Daija+ y/T42ol9JBjcdE/rvkcmOlNvvvkjN+bLP+9xu89tkr0g87/CM5+Wdj/nKUL0eT6Aa/djMJV3d4H+zYjf 7iLfdP7dm2zQbjbX94c1T87Tmi2P+hJ+x/oc/exr639o7rJtQ2Fxqjnt2Skh/dITI8flTS+is+3+k/3P ZCgFO864ZxmgEhs6l54XH/1Ljmieiypxyk97vItx16 lUeYj2WHFwgvsUP3uHNaEZQCg8qMZsD3HVzrSiC/RHLiwOsN3MQ5cS1T91AvR4X+pW0hu3OYO52m1tBj 3Z6yT2b5yJiLzJYbkPRc6VpwoBf0RsHAxow+CEzP1I52H5Id0mOg6wkRcjUNaz0rUBuWvUD1iNLJ/g+r djUktEqe4eK3RFBRtsBNzmaa9FMzeE0eAUqNvvllI3 g7xda8P6FryALlQsyBIXO2cDZDyqkTjVtIsBbo8VLKIf8ioOCcnWYq55hi2E7qjPbZUl7eegA2NBkR4H RNn0SIEh+DbxoNJi2nGLbwJ8Yx2lZT+6q1kgOnRBdkJJ7P+Oa/kcRQA6V717fwPh1mG+ugnQp6ueaZRN kX4yZLAWO6tw/tdDOCKWSXKnqvg7up5zRdjH+2AVZz Xihh7XIwIgLG/rUFA8OvTaNGaBoV39Vh7y9lPujVxwjsApyzAB0UZBukQJaJN/6oWagZ3LitcSZkDQMk zLhORxY7zahgz35jLJTEksC5fl4KESbFLpWvsNbK9GxUBADkD2B1aXYc8fle6F94TjS6fcdxFod7Cyz8 gh4uCsr+5NPuRa04iw1I3dQvAJwWz8ZxFF2rExu7zt 5gKbtDo3N3x0qeK5vG+43SFRx63tWMaRKmMMkiOoRq+16ixhEl4v464ZRM00VPXiK81brOo4BKbGhJ13 MjYx535In7ad9bbrt2u63dtinrcylAtyWVo8qCVzVm5uoMwEVe8A2VqkuOszNXFNL7wRdFSAYpbup3nc Femzo60AQABPGYrx0FxTtiGaP+314gDuJ5popWSuUw emQcZlZXrDt1rgchntDanyq4xad/4CnX/2FYoohBQ42veTohudZxyOX5pt9XZh1dnFnxiz4/6s7VmHzI zzA3TGa999q1xb3f17g5YSsggUr3G5xvzA24rrD5iyhcq7d7GrqSTeR2Zzd02ZkU2QXEcE5DMgPmXXgo oHW72nydp38t/JHM4h3Zd1jwDPB8lbBmFzeVs6doel YtKfF6fDvmrAfhV9Y6wYe8r7tqdArA7A0kqn/QcbrgzFqkjrk6GXkqFVHjmkKI0n3UGgV7tXaf9zhMqS lP6LPvwmVGaWgeKKMpBR3jGQs9TfrFRwFfPDO6deWzHnHkvewijVLcG6P+awL9xg/YqbzRtYaCutd9pt 90WM+UIdlFHcRa7BqVwQujHrpG1eeuH0hQkau3/KY/ f2VOoVt4maSs42PBnd5D+awDoHUfbv0P27iS/CoSQ7AerULbdaNHbVPgPyJf5w0UgqFCKWH8Cb7gyb99 tg5uzyV0waq3pOVt3H2ZBaOx9wO7QbKRjeU/Xk8pwK2PK8m9b/b8eM8QU6wKsudgLOuHG7baTuob6vas UJPYWJVOaXwsSzUdEhd+SQIz7cNHzIpE7RXnMkbPtA LoSndJfcfPYZIwbSucBRL3undu6faHbPqW3Ny19jVUBZoNkrZMg9xvT4P3szElTNHUS/llbybwvPAbiv DCs2Dh6JjTamDlQaM0aQmEgzYulLbwfbF2cqu+Lqd2ym4dC5fz845+DC09SCBix75r9vgw4Q10lNnYI6 rUnhXLi/tM/wf/VlPNXvIdU1925Yd+GbnoihjyPCw2 iRAhzJL0Opc7OScbV/5Oq85uojLWwXq1veG+X5++yu472Zzp66d6I2S0qRCOiC2sGNSqIwIP/lLaq4ex N+Qts4Leishk/KOuJBiK5FYo7RrXH+9roDnozcDInLrXE+zeYfPpi/09GzyrNeU8lZDU76D6mO1L5ppJ Q8Vgfxs7cc1XeJi00rSLgTYmuRirNxDvioGfrxzDjd U58FDgrYOjRDLyQQZk8LYP+dGqnXEztKm9/wfP2+dxg9sYyRb61oiixH+6hn8rJj246O/mrQ5Ef6hNnO G92/g0tQ9w5nD7bo0acQ6BMU78+S65l3BaLCYao0vxOFQknsi0cM7R0OdKFy2JLCXnRiUqZq5BSpHdbP SN9AiCPIs6l2GQbJV/5iKBCCpWomvYb+N8E/Mpb3DE pf/+hR2AiIkg2ER4WOwgNVt06RO141Hp975ceB81uFlg0BomglUY/lJLcs0rl/GgiH8fty+4vdtAyzA/ 4hGzC5WHRNU4hEdRh05j9bKxPBIHh618sb7UrCEoZTsvMPwreZpFJX/6ntldXbzfMYTCYVuqWnZzV0dP vkHTN+LXuvpe9NbhknCilh+m4cX/puHF/6ahwv+m1G a8a96YyT5Qs6X/2CFaLOYcIH9a98gU/6apreF/r9YNBd4lyx7rRusZoth+48Pyp6j6iJ9qtYCvO+Hsen LL/V2VErlMYvp9GlwzlYpfKK+ANB4TA9rE+c4fAqbA8h4STLoSFSrL+bK1iKpOhaE2I8J+01uC/aZniv 3XMEM2teXt0bhXeWdYxi/d+h4FislHy6R960usE47C PcIYMpSbNFxb0HUBxkRNSQOts7zB51v1As8vrudfao+jJ+XqZ8GK5l0R6E2PeCiHr8PvauEl+/q0sz7V RVmfnjR/20921rw2Dyh0LFosKwisF2Qn+L0dUGIfKah3oSIHrnTCV5+JqCO0DJBUQYo5JsVbZyVdHXeI yQwCo1sbjzeDsqyB2hB6RPWYEznp87hdCR04VNGXWb WJxf+e7z3rg9KND7kuCIKMbfcbUxMI144AFj7by1lob19SirHeJf78GA5/tsw48bPM5OlO4t82MoXWQq Pq3c0BnVBV4Sds+2lLW8pVIhrkEmi19XZ95NP+Q59DCbOAqfXjKuFh94HXWwqEx1hDufnIgHkeXAX+dL NsT2esUOF+E2msInEo50L7yijTsV12ZqqKPnMV5OLu dfYXpG/zK5vl8B4gFQT/5D3x2yEdwo/9Cmg3LX1L503D/G9D34Q/ZOqb8L+mtbZ75f6KR4yIWrK9r0pU Jo7LYyr72ukOgHtxmy9YEp2aqaeLyTj5pQ6fWsaviKo3S0g5ZJn1SAerl2O+Q8f6ZGOAv5elTqoQ744Z 882kpW58MikBMQwK046wzR1KhjarGsiQkCtmSAzfH2 A4mA7M/9wj3JoY+66EdxtO1Tfpb9I7ee9Hx8J0QRKiZaRT927p0y4KTgM7IUPE34beleZ5IbL0+aZuA6 Kfwe6dBzE/KOpeCsv+qVSZ/ZGuAoNx4s+R9+prb54CmaS+8Zh7BwWnO36Gb0f/EWjjcZcJ6Yx5AKmKi+ kw+F0aL32pKFvt3hjf/frh+apCxSp7dh4MX8gvocNG 9xf4WdeDn21LutSPetnVXDDRm3NGkG+zX8Vj2iaBIWjsyl6et1O79KM/4dOI8uzGh25i/X00B03uiFGt UnLk2eSS81tSjuDH22s7QQ/F50gR64Cxp1+nr0+bo57m5GEJuF/sxZhRvdFAzYx8789h97BJMfOFXfV9 NfYYXWdEn2H6F+Z/U8D+HYbnu2Z3fNhlc13D4T4PQw 0oCtvnySluf+cga56Lsl9POgEIkfR6HWnjK4SK7NoggW+E8fEH93bZqSAnR6UrjJdr6V0mszS/08C/5g +ZZFGrrSv+U76PgkMd9zjc2LnIxsI/23T/Z8Z9ly8U66sHy3DgIqWuclJTyl3qMx5yi7FyYoBITu07La HKUYzkp5js+nHl00gkt+8vKLZfGq/6GO8ZHTd+guL7 z2+ptSA4fxI7TM3sTFJ+M4s1pbA/Z9g1y9d/Ma1tLI8Ww+c/oINcqIt2f5qxMgqwsQhw3G5HaSO/6QGz pmx9Pv6RueP4AZVnKIpSpqI1xvko6R6Osz73jh7e9Ut1HnRbM9wX6wRUsd/ZssVS4cRfESYJ5Iapu2I+ numm0dmYwiZzHWo10oPLp39tBi3q2y5K5esT/QUmls X+SmfkXfwZZ0I/jseadrnI3S3A258kTbBRItAqLdycJzcYTCYo3CgyJmkoMIjYEdQXF5IG2PvfXyRZc5 kRrQsEb41PnhF2f1EvB/3mS2szw4BN5U77OJrdmupIUG85FKeyEm9vvVqwxTU+WLXaTL00BJLN77mHex Yifwe0IP9uQ1ZTVnnL8fJhROAZiY/47YOwkfl1wp3A eHesedKvJla1XULc/ZfZPtND0r3L9rLU20DipAgSZwkTsmn4pQc0z+YiehezdZE+eBPfo3F/mwRK/VMy IVSCRHAY8qa088P/pv+D/03/J/fg4wTQIqTJZNW/BLb22eN8vvUomeA7Kzq34nwxlbQrWU5t1fJfu08j S6E9rhs1jTnVWYZoh0JqwvD1Hy38/jfVDdxZGKAos+ SZ7oYqbiHdF3glzUjdUhg0VEASTvsNB8kdEgpZvNeI0HBrAiEBwLneHIsQeuiAxVztAOWJOEo+KdvggE j7AVo3IKSTXUeTfI8vRLDyoUvDok1i6lTYcrDZk2CDIaUEwPQj4CB3dG8XebqI+11ea7g9sdBQhf/Hemant q0WHBQ2L/JEfoFV7bq0cvAlIP1EkEyYYYaDSJoGzAp +besLVCHmLDsC8Q6UdGQxpdpyPfnQDfIXQbUKT/JbKiidAQogHyE8+rDl3yGZVD1PIDAleN+c1RZ8Hg7 qpu/E8XNmsch9mW+Wuth5kX9Of9UQkATcQcGdFR/bPxvENf2/VNlJwydINPDaVObwArcbvjtfLMNkKOg a5dzYmYHM+s8otW6chZDCkMMIabZ+U9R2GiBkmZmCR 1dcFBgLAQSnyYtEhtqo4NOgkYiIExNJyVWE3JI8xBEa4I2DURbpjrbnhyRx1ot0ZpUCoHh0CG7LSG/qU 2ni0CgWZD/ruqyRP1k6wvD/12xAno60r468B7tkP/f6hb4/LEk1IfjgoXe6o+vLb9QzROoB4fE0qV8ml axB1AbX2w4bx3S/HauE/xWKU4a+Be7H3Eo/YEK+PSt Phyw1xe0trLSa43VS8HYkPdHHjFVyt2OiMN+mvw4U46fFJiOvetx5Zd64VPJqFoqKe6I0oVluwOg6hX8 Tb+B34a+rRzOAhM9eLrvZEgUuv8Qr951O3II3fQOTH07a6G4NlObpwotQgVIzXyTO4grLSiRSfO+E8h4 Y6vS1lfng6DO57/Twwr/W3NHoRxYlBbCb4Mi9ybF/0 ZFPNrU/tQFDQn/B05fVSxf951V6RnV57RMjM/dhhfw3rlLO9Nt0L9pkyiiarEgve+bWuFa3TYB/im3Y/ zGsy1j9yiFgFH9QyuEJ+Qctg3I/8ZbYvZbfcx+b1nu9ApS/PNQjJb4xQkVRShnOjReJt8WfnGlOsFwoa 835AwUW0PtIgS2uGiKjMIk5wE58VJ/vm3dMa3kkuA2 7LcpHcV+u44KB7hkOyX2DxfUGPJ/YU1pYyXIw/JTmb9zWr31/kJV/tMurhlFR9uY5y8UH7R6/kI9+Qv6 JufTqnrxB+M9DimNx9EaD+rcDq1wwMh2EAPmBN28TpMvEGlv6/TrJ6+eFF075RzncstMgks4gG7Od25j 7kbmI81igmtEkGZztprxHX/3NPIXzjsX+Qux2/uf2t Qewo/8Ma6tyXk8pmT0N7pSgF09K82e6AaeadljDFZs9zLJwbke2rYiu9o6m8/EFJG/nXid4vbgStq+O3 8u+G82DSdmG9Ie0iU4GB/gpOlDmb1ayy8c/Cy+SU5G3qwOf/KdKuKMTcuAqnGwTWfXp1rq7Hv6OV8ViK 1wIk9Ke9doHFZuDZDoXhSE2vNEXkayKx4HUOu20675 yWUuwdy1IJTadPk2OWXcuSb8+G06v8dWm8qI+91fSzvKzVvqTT8D0nlXvUj7OCYD3bxVj0E0AGndgNwK s7Zxq4X82M/wsJS/GOQfht44JsNW5B1PiWF81WV5out/Tm64uUVuzXGJSe3/oSp/9VKnv4WwStHwF1cz 1IPx7n0Zv9+gTe29A/wEn58HcUobHJ6YN5lm/61Lz/ 8SYjb8V/7N1S4QnkpY/fh3cDHoXcG2zVkPsGn7xq6vqpVV/4bPrip/RAAu1C352xiM24GBRcuOBjPiGD upSn0Jq3Pun3eFcVMHqqHV6V8A/GNmbgdmhCxnOYwqcS1efNX14y196uMVKv1MYRz8B4D/VYPzk3CD/d EDnMJtf4cJpurHf3/p6G03zlRT5tDYR4Hk2ogzsgPb Oxe1TQbkubWQd6Olzd/1rlJl4FWJ18rMkkDZdBS5KX4DgqbPjtSCrSDzWJbTyrWBAgvA+Y7ji00gwjNi RD5Ypi0KL5vV7j7/K+YInEU3fSU8Gf4Pay6Zu3oeeSp5Z9QH2jdOS/AqoDV6l7fQtToc3F1Ir/UVqwrc 824e7JYqj+WzEnO1K7uU/fZa/phDqetDtm3awIaw6f R/9zxyX3O829YrauJvd/S/9kD5iSLrkoPc175r5jxwLy8uUfK/vGJeJGpdTchAw4Az9uAriG4gmckrbn mY/bx1UcRC9foo6t/z/mmNRC30ppuUMN3YgTsDid1Iz3/w99zt7clLrmxSFGaWYcy/T07rQ6tAK8TiIN L+raoa/jCCUatim0Xb1ImzH7+L39WN8JZXG/n1/G3s Ip4y1gtOhkCtXyiO22g3v1FmZ3fllRyGoafX/GF2DCIgBjM+/3Rz4ytlvyFuL4vr6Duvco/QS7ABOUW1 C/dgrr9WRM+ddn0CTl1J+Z2Rrebzv2Eb2mJyO1u7VoaYOGelc0XiDZqRiWRyAg7wFrj802va17Z1F0oE 8lwsvxvBDEwrAz1K0vcqT6IM8cDXHF0/Efq2fBV6SV R+04sBv+mYlk15HEEHsanUOYEdzo/5oQz33aijmsmKNtqmjzzjP6xZKxawNIELt6qv1bYcyK+quQC1zp eVqSsRk1qjeUyI1aQPJV8c4qgVnx1DuY8/Mr3tHCtg65wvExWyvxclJUcJ78zW4O+d44JvralemSkaB5 C4Vz6KwPU9wcEaH/mn+yYq0t3vvGk6gOx/KX/hnDr3 99eUg7ZUyPtTZ1e/WlVp/6FD75crL0DVYpuQsDX31FHzq1S1y4+fmdAbfreh30MUe0DKw9CG46yXbG50 BR6j4t/6EdHqeLK8ryO1Y5iuGQ0X82TrTLIpQOfxl+ZGiZtTqf0bS0ao8DaUp1swkwC8/ZN6Zf5xEV7S QxVNbyWldy1JiGo1F2O+gk8NoJ6chRPym6ccTi0QVj VXFXD9b6zkNYjC/oLumvgQ/Dv7OREc0NuYw8jpnlrJowzjQbNAYAcR7OGZfy+g9Q/5C/0jUW2qGtXoRN CSgYhJ82V0iZkNMUR/oK5Wqo+rk13UigH8X/J4uZ4Zld8xP4iRlHlWK0sK5yBSQdECH7f4jjb43bmD9a WLzhAHKtbI7pqTxTgPg0eu85JQh3rQ1FmzOddFxO9o Rh372uMrUqzZqfcmSMY7E2AJ9w2aNK/gII3mzawGuu+PRrM1b6yz0whj4ggxoBxZDPm/QYPYzB/Stb8g EP4Q/W32F/C1Y4wciX5usJbikeDQ+TEECQ29Udv2+rm8JpbOmdzC15RK8j5MzreVmWI8alSZ29hPtvMk 4hl9jzACQWxBqx/PiM3oDP16vfoV4Wso8DqRxA4fJa pizjXNj76tVJDk0b+7VXmrKvN/LMNFqWcvNb1gzOs4tBlg28xw/sMqy6HQmfy+XfhgIm8Wd6Zli+GAaS MKv+kOVlYNrMpfYOGp/LYgWZ19kSdja+YVaa8z1F8AE4sgLSPg+QtV+XexAfgVTh2ikfp1905G3eNZLc UepJaiFF378Jw173slarPfnc+lAIwJVOfSknTyj5ei U/u///shDy2dlPbC9yrPgy/HrkMiDsQ1fV2taO/i7qt8pKFlTP6d1pxK4VI/CL9rj1cXY1wgYnkO0WfH 2P1ErMGug3/v6uixR/7R3ZV/4iwm9bjkk09g4/bt45xgMPXeMa/dm1B2ZMQIO679ra1Hw6+d//Kx3Pm/ U7lZvMuHn2cGXFGeuurfg5KC6hMuaWrJM55xvTcjL6 d/0DIOl8q/v/oKw4gwEIGAekXIsu+ic93kH5+/U/8S8xom0qp+nHZ++6DrvQfP75id17BiPZHlfsNMRz yjLirP3pzT4UpkHY0f9SjXPT/+aMw/RrwJ5jDui3yruI62wXqds9U//dHznaE/D2HcoT/z0gd5IP5z0U +68VHX/t6lEgvtW7uqxkW6QaOU2QsmS+gLTp42NxOy zfoCLJFcHvMEtAfe89QdliEjbvRoe5Q8IK+26c8O/dHx6A/Hh/5SQuJshpO8EM6fJBc9g/1pUdOL1H3Q Q/49y24pC/8vfN//3ay772HR/JaK8YvS+d+3LRbypz/lZX/s713x9iB16Qaq1+/Tn3dq1+52Dq5dJpwq /qRlmv8xOLhPmzGRUIIGBwJPcWsLkSgEiR7SEucV/k h+TW4mf/pz5E9/NNzOD6bzIik97doxzqTCa8uyWXRw7K/KMaE/klN/PqwuKp1ITxL099IvCe3m4X+mdW 41prjpW3Qj9Z+kJkp8zaf6j9Nacgav/KMFe+eRluY6T84D/uH9Cp+/ODlc/gGu0Dry+tTi4NnVt4ew/o iiZHNq6C4wF/zDvBCu/qPDwT/MC+Wo02nSrt9xw/AP /wv+4b8b/1T4h/HEa9U01Q/GE/3mtBRuma2zo2e4l8MC/vss8Nqgu7C/eL7wD5/IU3QNc5dH4a3+7zVl 0KtadzoaVjcRPw5If2XP+EdyNTnnrwr/cB74R/ZeKgijRh6bXdF/zDM99nYR1hTCdJoT/1cjgn0smN3U v513fg/9qU45iP+ln+G8lw6/2D/81uyfF/uH+5H9g9 ptqd2h0mv/xJi/8I/y1N9O7up+iXF44R/Cwib5nswBXr266jD49bt7/xjgN8UD/iHKph42G8VW/1Pq/U 9tan/Zutn6M6kN0O+XMQn+umswjC2Vp2/1Fupp2D/C+AT/GUkpTs3Kkod5h8K8F502g0e2E25cG/fEP7 FaJafPsi103L/+DbG0wy4Vo7L/BQ12ypcm2QoQ/ZE8 FC1k2D4g+jr8E8aj+kc6fdt3u6kIRisuuV/0+RR38AwaEw334Q/Jaf+8Zv+88A/cDi0MUp9DU+AftaNN +ydc7+Dk1RsZR6ReQe3Ec0zm6IE3T20F/oGTw+n+I1fkT3+GWtZOkz/3Lkr4P0ang0dKS2UV9U5h03Tz +JKjo5ci2xwYTbx/8M+MjPAJR0p73G/mnVf2z/e/Gv ZP2IoN/zJ55eIkqFzz/CLk2jKgmamgR5DybkO/finbfwI1N8BahGph+yX2505C/zs3QexpZpq63xBsVJ nEizS3ofFiq8oSsL+OO26HMjj9W/dnyv6qRm2VTddjN4k/ZsiD80J/OA/7u5XtPkVh8wdzdoo1s/1g/z A+2D+MG/aP5Ji/OA/0D1rIYynTq7B9J9opG9xt/PN6 /lObWnFUuM0/J/A/dbq6scc1+lz1kD39+p/t6X81ygtfc1YsbR/+OElfTFmWBsFzP91LtZH/05mCd3ky GvzDOGD/6Lef/pOhsIj62/3/T0rj1cdgDnoBp4t4S6Z0qdz4TgazS5YwxK/aYF715kf/D2MS/AP/h3Nc Nn/4tmIbMMhfv6Sal7aNac4HxvPnF+ef2tR+WzP/1K b2/PfgnxbvdTjFrzxMniZ/+uWbkNVrb8XIfJE+4J8jf/qjsQr+YWBHZ7KLoV8z+Kv5aylnJr0/jo4PF5 nYYn99p+BVu0voTI91GNuxoASfr+TQH44P/tHnwT+srcL1/e0v/PMfHxi2L/21kYN/Ho4J/wl9MGkyZd 5DTiwbf8FVp1KY0/JZ7QKsxCbR/ol3vMM/+to7k0Fa eqP6ws94k014/MO9Bf/w/oaf+/am7Y6qA1QBtauz7A/qlBUqz9nV/HPk0B+JYh94vkcX5vz+0ZgH/xw5 0WcUmY2mz1Ui9M+uBf+gJ/IPczg6dC3jp/0Yxy8oKpm+SJ4mh/5I3ikb/3O9L1J8PzUVxuT725mU/2gc 4B90L/gYgvt0Gig334mO6SGzvMR9a/ay2D/oA/aP5N AfHf/pj64b/GD6u39Bo/iHz+Ef/gv8w/sL/2R92jlyP/90+HfKzI4O2fkHZ9FXbgDd8O/JzeTQn+DJbv zTWX/xf1l/pAdJyw4JnU/PBgpn9Ruo7L9lekdy1Dr+n4fPP/2Gyc5K0NyM2K8oib6dxJ2oI/vlc/xTm9 ov4+Mt9nTpZNGU/zPk/+HzT3+WZnr4V1UAs+I/Rlkd zQVRVefKoT+Sd8rBP/pt8E+tgY2cn3Wal3aCz/2r5x8DR399/mXyThn+oX0t/SM1vZYZqNhOsE+Mm/gH eZoc+tGDh3diQ+Mp/kGu9/0a8E+8OwP+2chh/rkpT0lCmmxyTS/PVR8F66Tf/RU+gWH+69Z2s1FVv9Sk 3dzjX7dc+lcH6y/J+9qHg/WX2svm+muw/oq5YGD/cG /YP9w//BNzwYB/GBPjnwH/oM/wD2ML/zD+8A/PKPjnyK/JoT+8C8E/Rx4mh/3ZWh0JL+KlMAwOxyfX6Q /D+GcY/cmuJ07Tu6A/uE/4Bxn+Cd4Y8I/qsyN0J8UcoR+Ae4owfqrWQek0Aj8w4Df/SlGLR5GxO/tHcj M59Ofh+Nk2v9B394yo+sfB0Afa44L2ddruiZ+cx+yf Cf9wb/CP5HHn+gn/hG5M+Kcj7zs+E/7hc/ho5NzzZf7mM5SCmmc24lyQ/JTfjB8N/glun/APv4V/uH/W X8HhE/8P5wn+wVc24R/OGfzDWmDi/3n4/NMfbPuobyOej/X1O8twQ8RjjvTrN2iDjmoUr4/zT21qf+fn 809/7irYi5rn0ewxQyaPMmWmHtku9eh2P3VeB5zuM9 nN5LB/JE+Tw/5hDLF/Yi6Y2D/B/cI2Z6OFipI+afhW1zmvz/IZ3RnCIMJ+2bn7OvfIX+AfyfW+UxP+QQ /hH/QT/vB17js9bm+0fIV/0Hn4h/cL//ICMQ5bysD/XJFbvmva/+Dbiti62r5RN/A/g22I9Dhq+8T/LL lcn/zE/xxr2In/WZ+369+Y+J/408R57iF9u1pK/uHe 8D/H/S/yY1hu2w+hTSr+n/jvy/hniX/dS7Uo6mno9g+XD736xO4K5FxmLcOmM+gFacG6d4J8xQj1tvQ+ invW/juxIaz8R6jF4Wrj39S6E5Y0qrDp/WV2jPfvB1gC8Z4a9x2wUvcL/6r1P1uHGAlOOlO/Xvnm8S7i tv+9hL4Rk6g+18L/0/j90Ji78J/VUn9WS/1Z2D+N8+ T+kAD5M3O/IMv+sNUsy3g/bvoD//Afu+flight control specialist/2Bfxafh/1F3dzUO5OYqnqt3cleM+eHfyTn/BDP3b2s/M [file] OPN4KXlyBOKOLj== ID Date Data Source [id number] 10/16/2019 08:41:04 AM EDT [facility] Name Value Range Interpretation Code Description Data Priscilla rce(s) Supporting Document(s) EKG [facility] XDRPUo8yAzAPQoByc6DmGxDlYJAoJR2oswd5U5M9uCGbK3PxuOErn7aqD5TpM3AqQIOlCZVMII5LwAKp jb2 [file] VSRlSeiHLa5Dk9SdlhI6zvDvGuW7TTayHsOkBV0C ID Date Data Source [id number] 10/16/2019 08:07:20 AM EDT [facility] Name Value Range Interpretation Code Description Data Priscilla rce(s) Supporting Document(s) EKG [facility] GAMUUw8oBsJIUbFvq7IxGkZnPKGpOM4ntqp3W6G3iYTqV4McsLUsq8taR9UpB7ZnYGHgBZYWBT9WbAVv jb2 [file] hA9Jjtc1F6+Mo+qsx9nsfDmJn/2us//clinical informatics physician+fPjaTH8 vR/H50N/nnxwlgz+nHTZgx61+Ac6M0V/wD+IUoF/6GKWsa15+Riftn0dY/6MywmRs6l++Woih/7w86E/ lKfIoj/gH75+Sgb/XV59vsl6Gz7u/RK4OI9IlaSyyFlcUklSTtxE4dp0d9GFhJe+sFy1asEGUmaq9tVQ 9xr4h/RmDkF9J/aAIZjeZ4Vur1Ao+b/HHv77x+L1j3 8mRmQG/8wB+eOfOZ8/jql9/8gzgsF08a9G+dOfxfGyn/6s+L2xd//+CRg1++nPOhhf++qHp2ExD/sucB w/+GcvyJ/+7ND/2LV/Fwzypz+n4fif/baOc1rz+2hZqeg2EkPwm/okNZeD7O3377+z8ZlPf/I4n/7wXM E/m6NpP/3ZLdYq+Th2hJdR3+8N/lkWnw/+vrdfoN2B Y3CDf/tjqR5Vwkckvkrr7C/gxgb7J/Ndky9FPvQ+Gqoxe82Z+ye4pcH+oQz+id8V/JPypz/gpdiXv/Kn Px3rH/ZPyibypz/8fNg/KXeRP/3Jzy+RP/1J+ZQc/Prasad+T1O8E/GtEUjXR0Lp8Hb/klVF7lI1Y/l4J/g ugb+mebyW25xrMfnD16usrw5E7nEIVqY39Q871q/xH 9H+pfti7g8PtB6q7m969O+aWL/NLF/GjjP9xA+zXz2KuUvepG/R/QH/XG4hieiEAO/QU46rsDVXqWw16 4mOukvlsvK7XHwF+vocf85F03f+sNjnpJh/+XvuJ5tt9lsvxyZ/QI01Pjta/9b69meDSlp/perry+hM76n s89aGGTbcXCk/wu2U/j24wh1jpZwSI4kJq9xq/enOR m5Uc+hO80eF/UZ4iL6/Pl/83BgWx03Y/742jj11nI/m0w41cs//K4D8DQny3u/3snV7Sae9L2ZA2+3zv 8L8o9+qpkootFP6U/lU1Ufhf655n8pQ9d/4Mv0kjbK9g4D97q3Yupq3l/1AO/QkO7+AfXM8s/73T/onX xf/q4n/1JfoT/TYaz7vNy+NXnpefY2/6jtokS1XjQ1 iuimVEv0tlM8KFiBMEquyjebw+jK9i8tHjL78ldroHhsCHdK8rh/dhhddf/YaYZN5pb5INGf9vJ/vefL G2H/+2qBuK50/tfajGegb/vLcG6RH5z/YB3oa9mk+E9pit4Z//45ha/kcD/EO5/K/xlP8+nvFqs2W/Pq zs5wH+qPx8W1T1w1pe/wzwDz+/RL1y5IMlKv5syBrQ HvC/RNl0BPB/Z8j+zxD/a4j/Nbj/A/ncvaAh+z8D/BP31wD/UA7+mZCDfygH/4R9O8A/fD30h6+fksE/ T8Ski7JCboLiItfT+hZ726+ti9c//pVjGyrljEcxJ9q5fnek881TxO7ml8WiFat1AgMd64FvTv2l0LTl iYh82yEa7SM+8yk8eeUHtrRLh6luG5WqSJlpDhQq49 YiGc7R8VtyjOc15bAbDqD3im/+HKxJ8M/BugX/CNnNmS9Fua23b4yyS/DPxloF/yysc/DPgv4E/0xcc/ EZBZWCUnmOpxk6W5sT+wf/Zwgr0Opt/cMh9s+Q/Z+bh04z9S+cV/nqAH2G8N/FAsxu0BAb0J0/H/ZPvu 4ih/9GYlo2gb4hE2pD0DKn+hqz1xacDJ8UAhMFq+I4 jTN44U7y5MaRCY/Pp+zoFitpOjP3a8VmPI6reUUjhz+isc79/Ld26PO3L5qKDZdiKNym2l4ClQQ0DofB JKfd1KHvs1+X7uj6l8rHFi1f1aq+AkcUdsWv8xb23o0X9IShjwFw/k/I3P+QECjC0of+D+LWB7ceRBxY 5DnrOOV/TfG/BwabrGLe0mi/y3A7D7E2m1y/C5+ZtS awf7D+o+znOcp+fnNi6af5N5+X/ecp+89T9p+o2V8G4C+pb26xl7qez2F/KSKmL3GAGR8jY8S6hTKBsT 2fOK/s/0zZ/4sqB8zU/gm+tbXmGthPD1jufy8K/vvEyAnr6kp0W3c6tZcrzRoym8M3rt1F+C6khvx38N T95wn/C+v4nzsz6qWX/IC29KyY/8Ya4p0e/0BuIneR y78gnp3T+Zp21l2d6B1FLbL/KAf/KCpgGl13sjoO/MPPfPqD5/LC/s/QKssnT0d+BZN9vJGqy+h58zqv 0YjG3uAwRmFjfsp0Ewjscn3Ax/sczqNhMUuSz6r3ySvcjxYvwzrO/768/Bjo6x6owY8Z8g/GgIr/tVr5 76uV/75g//AzS+R9bcLF/Z+RHm1ufp9LXt3uby+1JP 462K14jSS/HZ8J/wvXD/+Lnzklw/+hHD0GZr//q+X2HhL4H4hr/K8l/Mj/zXw+XNtxQX+lJw9AlEW8x [file] qxAkQdV9Zzj7XmMwHZ6D ID Date Data Source [id number] 10/16/2019 07:44:22 AM EDT [facility] INFORMATIONPatient MRN Name Date of Age Gend*PT [id number] Lizette Davis 1985 34 years F EDPT Location Admission Date/Time Visit ID Attending [id number] 10/15/192155 --- --- EPI ID CSN Admitting Provider [id number] ---Provider in Triage NotesNo notes on fileHistory of Present IllnessChief ComplaintPatient presents with Dizziness i have been having dizziness on and off for a month [facility] primary [facility] 2 weeks but i just can't take [id number] y/o female, with PMH of Varicose Veins, who presents to the ED c/ointermittent moderate light headedness onset six weeks ago. The patient reportsfor the last six weeks she has had intermittent episodes light headedness where"I just don't feel right". She states that she has been seen by Urgent Care,where she was treated with Vertigo medication which she said provided no relief.Patient also reports intermittent headaches, which are new for her. She doesreport [place], and states she has beenstressed. She does note that she has a PCP appointment scheduled in the next twoweeks, but she could not wait. Denies any chance she is , she has an IUDin place. Patient denies any chest pain, nausea, vomiting, back pain, cough,congestion, fever, and all other symptoms at this time.PCP ALY WOMACK MDHistory provided by: PatientLanguage agile scrum coach used: Heidy Medical History:Diagnosis Date Varicose veins right lower legPast Surgical History:Procedure Laterality Date COLPOSCOPY x2 DILATION AND CURETTAGE OF UTERUS 01/24 VARICOSE VEIN SURGERY Right 10/29/2014 Procedure: PHLEBECTOMY VARICOSE VEIN RIGHT ; Surgeon: Kal Ferro MD;Location: [facility]; Service: Vascular; Laterality: Right;Family HistoryProblem Relation Age of Onset Malig Hyperthermia Neg HxSocial HistoryTobacco Use Smoking status: Never Smoker Smokeless tobacco: Never UsedSubstance Use Topics Alcohol use: Yes Comment: once per week Drug use: NoROSReview of SystemsConstitutional: Negative for chills and fever.HENT: Negative for congestion and trouble swallowing.Eyes: Negative for photophobia and visual disturbance.Respiratory: Negative for cough and shortness of breath.Cardiovascular: Negative for chest pain, palpitations and leg swelling.Gastrointestinal: Negative for abdominal distention, abdominal pain, diarrhea,nausea and vomiting.Endocrine: Negative for polydipsia and polyuria.Genitourinary: Negative for dysuria and frequency.Musculoskeletal: Neg ative for back pain and myalgias.Skin: Negative for pallor and rash.Neurological: Positive for light-headedness. Negative for dizziness, syncope andnumbness.Psychiatric/Behavioral: Negative for confusion and decreased concentration.Physical ExamBP 117/71 (BP Location: Left upper arm, Patient Position: Lying) | Pulse 67 |Temp 98.6 F (Oral) | Resp 18 | Ht 65" | Wt 54.9 kg | SpO2 99% | BMI 20.14kg/m Physical ExamConstitutional: She is oriented to person, place, and time. She appearswell-developed and well-nourished. No distress.HENT:Head: Normocephalic and atraumatic.Mouth/Throat: No oropharyngeal exudate.Eyes: Pupils are equal, round, and reactive to light. EOM are normal. Right eyeexhibits no discharge. Left eye exhibits no discharge.Neck: Normal range of motion. Neck supple. No JVD present.Cardiovascular: Normal rate, regular rhythm, normal heart sounds and intactdistal pulses. Exam reveals no gallop and no friction rub.No murmur heard.Pulmonary/Chest: Effort normal. No respiratory distress. She has no rales.Abdominal: Soft. Bowel sounds are normal. She exhibits no distension. There isno tenderness. There is no guarding.Neurological: She is alert and oriented to person, place, and time. No cranialnerve deficit. She exhibits normal muscle tone.Skin: Skin is warm and dry. Capillary refill takes less than 2 seconds. She isnot diaphoretic. No erythema. No pallor.Nursing note and vitals reviewed.ED CourseProceduresMDMNumber of Diagnoses or Management OptionsLightheadedness:Diagnosis management comments: 34 years old female who is seen in the ED forlight headedness. Vital signs are stable. Preliminary Plan for CT of head,reassessment.Amount and/or Complexity of Data ReviewedClinical lab tests: ordered and reviewedTests in the radiology section of CPT : ordered and reviewedTests in the medicine section of CPT : ordered and reviewedDiscussion of test results with the performing providers: yesReview and summarize past medical records: yesIndependent visualization of images, tracings, or specimens: yesRisk of Complications, Morbidity, and/or MortalityPresenting problems: moderatePatient ProgressPatient progress: stable (34 y/o F presented to the emergency department withsymptoms of dizziness, light headedness. Patient's vitals were stable. Patient'sbloodwork not actionable. CT head not actionable performed for new onsetheadache after age 32. Patient amenable for outpatient neuro follow up. Stablefor discharge. Discussed all bloodwork and imaging studies with the patient.Will be discharged to home in stable condition for close outpatient follow up.They will return to the emergency department with emergent concerns. Allquestions answered, discharged in stable condition. )LAB RESULTS:Results for orders placed or performed during the hospital encounter of 10/15/19CBC and differentialResult Value Ref Range WBC 7.4 4.1 - 11.0 10*3/uL RBC 4.41 4.00 - 5.40 10*6/uL Hemoglobin 13.6 12.0 - 16.0 g/dL Hematocrit 40.7 36.0 - 47.0 % MCV 92.3 80.0 - 95.0 fL MCH 30.8 27.0 - 32.0 pg MCHC 33.4 32.0 - 36.0 g/dL RDW 13.7 10.5 - 14.5 % Platelets 301 150 - 450 10*3/uL MPV 8.0 7.1 - 10.7 fL Neutrophils % 48.7 35.0 - 75.0 % Lymphocytes Relative 41.6 16.0 - 52.0 % Monocytes Relative 6.2 0.0 - 8.0 % Eosinophils Relative 3.1 0.0 - 5.0 % Basophils Relative 0.4 0.0 - 4.0 % Neutrophils Absolute 3.6 1.8 - 7.7 10*3/uL Lymphocytes Absolute 3.1 1.2 - 4.8 10*3/uL Monocytes Absolute 0.5 0.0 - 0.8 10*3/uL Eosinophils Man 0.2 0.0 - 0.5 10*3/uL Basophils Absolute 0.0 0.0 - 0.2 10*3/uLBasic metabolic panelResult Value Ref Range Sodium 140 136 - 145 mmol/L Potassium 4.0 3.6 - 5.2 mmol/L Chloride 106 100 - 108 mmol/L CO2 29 22 - 31 mmol/L Anion Gap 5 (L) 7 - 16 mmol/L Urea nitrogen 19 7 - 24 mg/dL Creatinine 0.77 0.60 - 1.00 mg/dL BUN/Creatinine Ratio 24.7 (H) 10.0 - 20.0 RATIO GLUCOSE 99 70 - 99 mg/dL Calcium 8.6 8.4 - 10.2 mg/dL GFR MDRD Non Af Amer >60 >59 ml/min/1.73m2 GFR MDRD Af Amer >60 >59 ml/min/1.73m2 Glom Filt Rate, Est SEE NOTESTroponin IResult Value Ref Range Troponin I <0.05 <0.05 ng/mLhCG, quantitative, pregnancyResult Value Ref Range hCG, Beta Chain, Quant, S <1 mU/mLPOCT troponinResult Value Ref Range POC Troponin I <0.01 (L) 0.01 - 0.07 ng/mLPOCT troponinResult Value Ref Range POC Troponin I <0.01 (L) 0.01 - 0.07 ng/mLIMAGING RESULTSCT head without IV contrastFinal ResultIMPRESSION:No acute intracranial process.Report electronically signed by: DIMAS UGAN MD on 10/16/2019 00:36:06ED MEDSMedicationsacetaminophen (TYLENOL) 325 MG tablet 975 mg (has no administration in timerange)Progress Notes:10:46 PMPatient seen and examined, labs and imaging ordered.12:48 AM Rechecked pt who reports feeling improved. Updated pt on lab andimaging results, as well as plan to d/c. Patient was instructed to return [facility] ED for any worsening sx or concerns, otherwise follow up with her PCP forfurther management. Pt understands and agrees with plan.DISPOSITION - Discharge in stable condition.DIAGNOSIS1. LightheadednessNew Prescriptions No medications on fileThis was electronically signed by David Hamilton acting as scribe for andin the presence of Jaspreet Joel DO, 10/16/19 12:48 AM.ED MD AttestationAttestation of Scribe Documentation: I personally performed the servicesdescribed in the documentation, reviewed the documentation recorded by [email or web address] in my presence and it accurately and completely records my words andactions.Jaspreet Joel DO 7:44 AMJushankar Joel, 10/16/19 0744 Name Value Range Interpretation Code Description Data Priscilla rce(s) Supporting Document(s) ID Date Data Source [id number] 10/16/2019 12:36:06 AM EDT [address] [address]Pmarrqs Name: Lizette SceeDOB: 1985Sex: FOrdering Provider: Jaspreet Tolentinouthoriralph Prov: Jaspreet JoelReferring Provider: Procedure Performed: CT HEAD WO CONTRASTExam Date: 10/16/2019 00:04MRN: [id number] Number: [id number] Class: INFORMATION: Exam: CT Head Without Contrast Exam date and time: 10/16/2019 12:04 AM Age: 34 years old Clinical indication: Other: Altered level of consciousness (loc), unexplained TECHNIQUE: Imaging protocol: Computed tomography of the head without contrast. Radiation optimization: All CT scans at this facility use at least one of these dose optimization techniques: automated exposure control; mA and/or kV adjustment per patient size (includes targeted exams where dose is matched to clinical indication); or iterative reconstruction. COMPARISON: No relevant prior studies available. FINDINGS: Limitations: Rotated and tilted right. Brain: Normal. No hemorrhage. Unremarkable white matter. No mass effect. Ventricles: Normal. No ventriculomegaly. Bones/joints: Unremarkable. No acute fracture. Sinuses: Posterior mucosal thickening right sphenoid sinus. Hypoplastic right frontal sinus. No air-fluid levels. Mastoid air cells: Visualized mastoid air cells are well aerated. Soft tissues: Unremarkable. IMPRESSION: No acute intracranial process. Report electronically signed by: DIMAS GUAN MD on 10/16/2019 00:36:06 Name Value Range Interpretation Code Description Data Priscilla rce(s) Supporting Document(s) ID Date Data Source [id number] 10/15/2019 10:23:17 PM EDT [facility] Name Value Range Interpretation Code Description Data Priscilla rce(s) Supporting Document(s) POC CTNI <0.01 ng/mL (0.01-0.07) L [facility] Less than 0.08: Myocardial injury unlike lyGreater than or equal to 0.08: Highlysuggestive of myocardial injuryCorrelation with rise and/or fall ofserial troponins, clinical symptoms,and ECG changes is necessary.PERFORMED BY [facility] ID Date Data Source [id number] 10/15/2019 11:43:56 PM EDT [facility] Name Value Range Interpretation Code Description Data Priscilla rce(s) Supporting Document(s) HCG,QUANT PREG <1 mU/mL [facility] INTERPRETATION:LESS THAN 6 NEGATIVE 6 - 10 BORDERLINE (SUGGEST REPEAT IN 48 HOURS) APPROX HCG RANGE WEEKS POST LMP 11 - 130 3 - 4 WEEKS 75 - 2600 4 - 5 WEEKS 850 - 14211 5 - 6 WEEKS 4000 - [id number] 6 - 7 [id number] - [id number] 7 - 12 [id number] - [id number] 12 - 16 WEEKS 1400 - 71463 16 - 29 WEEKS 940 - 77454 29 - 41 WEEKS ID Date Data Source [id number] 10/15/2019 11:43:56 PM EDT [facility] Name Value Range Interpretation Code Description Data Priscilla rce(s) Supporting Document(s) TROPONIN I <0.05 ng/mL (<0.05) [facility] [place] Less than 0.05: Myocardial injury unlike lyGreater than or equal to 0.05: Highly suggestive of myocardial injuryCorrelation with rise and/or fall ofserial troponins, clinical symptomsand ECG changes is necessary. ID Date Data Source [id number] 10/15/2019 07:08:00 PM EDT [facility] Name Value Range Interpretation Code Description Data Priscilla rce(s) Supporting Document(s) POC CTNI <0.01 ng/mL (0.01-0.07) L [facility] Less than 0.08: Myocardial injury unlike lyGreater than or equal to 0.08: Highlysuggestive of myocardial injuryCorrelation with rise and/or fall ofserial troponins, clinical symptoms,and ECG changes is necessary.PERFORMED BY [facility] ID Date Data Source [id number] 10/15/2019 07:21:37 PM EDT [facility] Name Value Range Interpretation Code Description Data Priscilla rce(s) Supporting Document(s) SODIUM 140 mmol/L (136-145) [facility] POTASSIUM 4.0 mmol/L (3.6-5.2) [facility] CHLORIDE 106 mmol/L (100-108) [facility] CO2 29 mmol/L (22-31) [facility] ANION GAP 5 mmol/L (7-16) L [facility] UREA NITROGEN 19 mg/dL (7-24) [facility] CREATININE 0.77 mg/dL (0.60-1.00) [facility] BUN/CREAT RATIO 24.7 RATIO (10.0-20.0) H [facility] GLUCOSE 99 mg/dL (70-99) [facility] CALCIUM 8.6 mg/dL (8.4-10.2) [facility] GFR >60 ml/min/1.73m2 (>59) [facility] GFR ( AMER) >60 ml/min/1.73m2 (>59) [facility] GFR INTERPRETATION [facility] --NORMAL KIDNEY FUNCTION OR MILD DISEASE - GFR >OR= 60CHRONIC KIDNEY DISEASE - GFR 15 - 59RENAL FAILURE - GFR <15 Est. GFR calculation based on the MDRDstudy equation, which assumes a steadystate for creatinine. Est. GFR should notbe used for medication dosing. ID Date Data Source [id number] 10/15/2019 07:09:46 PM EDT [facility] Name Value Range Interpretation Code Description Data Priscilla rce(s) Supporting Document(s) WBC 7.4 10*3/uL (4.1-11.0) [facility] [place] RBC 4.41 10*6/uL (4.00-5.40) [facility] HGB 13.6 g/dL (12.0-16.0) [facility] HCT 40.7 % (36.0-47.0) [facility] MCV 92.3 fL (80.0-95.0) [facility] MCH 30.8 pg (27.0-32.0) [facility] MCHC 33.4 g/dL (32.0-36.0) [facility] RDW 13.7 % (10.5-14.5) [facility] PLT 301 10*3/uL (150-450) [facility] MPV 8.0 fL (7.1-10.7) [facility] NEUT % 48.7 % (35.0-75.0) [facility] LYMPH % 41.6 % (16.0-52.0) [facility] MONO % 6.2 % (0.0-8.0) [facility] EOS % 3.1 % (0.0-5.0) [facility] BASO % 0.4 % (0.0-4.0) [facility] NEUT # 3.6 10*3/uL (1.8-7.7) [facility] LYMPH # 3.1 10*3/uL (1.2-4.8) [facility] MONO # 0.5 10*3/uL (0.0-0.8) [facility] Eosinophils [#/volume] in Blood by Automated count 0.2 10*3/uL (0.0-0 .5) [facility] BASO # 0.0 10*3/uL (0.0-0.2) [facility] ID Date Data Source [id number] 10/09/2019 04:48:45 PM EDT [facility] Name Value Range Interpretation Code Description Data Priscilla rce(s) Supporting Document(s) Leukocytes [#/volume] in Blood by Automated count 6.4 10*3/uL 4-10 [facility] Erythrocytes [#/volume] in Blood by Automated count 4.17 10*6/uL 4.1- 5.3 [facility] Hemoglobin [Mass/volume] in Blood 13.1 g/dL 11.5-15.5 [facility] Hematocrit [Volume Fraction] of Blood by Automated count 38.2 % 3 6-45 [facility] Erythrocyte mean corpuscular volume [Entitic volume] by Auto mated count 91.7 fL 80-96 [facility] Erythrocyte mean corpuscular hemoglobin [Entitic mass] by Automated count 31.5 pg 27-33 [facility] Erythrocyte mean corpuscular hemoglobin concentration [Mass/volume] by Automated count 34.3 g/dL 32.0-[facility].0 [facility] distribution width [Ratio] by Automated count 13.3 % 11.5-14.5 [facility] Platelets [#/volume] in Blood by Automated count 293 10*3/uL 150-400 [facility] Differential cell count method - Blood [facility] Neutrophils/100 leukocytes in Blood by Automated count 55 % [facility] Lymphocytes/100 leukocytes in Blood by Automated count 33 % [facility] Monocytes/100 leukocytes in Blood by Automated count 7 % [facility] Eosinophils/100 leukocytes in Blood by Automated count 4 % [facility] Basophils/100 leukocytes in Blood by Automated count 1 % [facility] Neutrophils [#/volume] in Blood by Automated count 3.54 10*3/uL 1.8-7 .0 [facility] Lymphocytes [#/volume] in Blood by Automated count 2.14 10*3/uL 1.2-4 .0 [facility] Monocytes [#/volume] in Blood by Automated count 0.45 10*3/uL 0-0.8 [facility] Eosinophils [#/volume] in Blood by Automated count 0.25 10*3/uL 0-0.5 [facility] Basophils [#/volume] in Blood by Automated count 0.03 10*3/uL 0-0.2 [facility] Nucleated erythrocytes/100 leukocytes [Ratio] in Blood by Automated count 0 /100{WBCs} 0-0 [facility] ID Date Data Source [id number] 10/09/2019 05:00:07 PM EDT [facility] Name Value Range Interpretation Code Description Data Priscilla rce(s) Supporting Document(s) Albumin [Mass/volume] in Serum or Plasma by Bromocresol green (BCG) dye binding method 4.8 g/dL 3.5-5.2 [facility] Bilirubin.total [Mass/volume] in Serum or Plasma 0.4 mg/dL <1.2 [facility] Calcium [Mass/volume] in Serum or Plasma 9.2 mg/dL 8.6-10.0 [facility] Chloride [Moles/volume] in Serum or Plasma 103 mmol/L 98-107 [facility] Creatinine [Mass/volume] in Serum or Plasma 0.83 mg/dL 0.50-0.90 [facility] Glucose [Mass/volume] in Serum or Plasma 102 mg/dL 70-140 [facility] Alkaline phosphatase [Enzymatic activity/volume] in Serum or Plasma 42 U/L 35-104 [facility] Potassium [Moles/volume] in Serum or Plasma 4.9 mmol/L 3.4-5.1 [facility] Protein [Mass/volume] in Serum or Plasma 7.3 g/dL 6.4-8.3 [facility] Sodium [Moles/volume] in Serum or Plasma 139 mmol/L 136-145 [facility] Aspartate aminotransferase [Enzymatic activity/volume] in Serum or Plasma 17 U/L <32 [facility] Urea nitrogen [Mass/volume] in Serum or Plasma 12 mg/dL 6-20 [facility] Osmolality of Serum or Plasma by calculation 288 mosm/kg 275-300 [facility] Creatinine/Urea nitrogen [Mass Ratio] in Serum or Plasma 15 [facility] Bicarbonate [Moles/volume] in Serum 24 mmol/L 22-29 [facility] Alanine aminotransferase [Enzymatic activity/volume] in Seru m or Plasma 8 U/L <33 [facility] Anion gap 3 in Serum or Plasma 12 mmol/L 8-15 [facility] Albumin/Globulin [Mass Ratio] in Serum or Plasma 1.9 [facility] Glomerular filtration rate/1.73 sq M pre dicted among non-blacks [Volume Rate/Area] in Serum or Plasma by Creatinine-based formula (MDRD) >6 0 [facility] Glomerular filtration rate/1.73 sq M pre dicted among blacks [Volume Rate/Area] in Serum or Plasma by Creatinine-based formula (MDRD) >60 [facility] ID Date Data Source [id number] 10/09/2019 05:00:07 PM EDT [facility] Name Value Range Interpretation Code Description Data Priscilla rce(s) Supporting Document(s) Thyrotropin [Units/volume] in Serum or Plasma 0.877 u[IU]/mL 0.270-4. 200 [facility] ID Date Data Source [id number] 10/09/2019 12:00:00 AM EDT [facility] ([facility]) Name Value Range Interpretation Code Description Data Priscilla rce(s) Supporting Document(s) nRBC/100 WBC Bld Auto-Rto 0 /100{WBCs} nR BC/100 WBC Bld Auto-Rto: 0 /100{WBCs} 10/09/2019 [facility] ([facility]) ID Date Data Source [id number] 10/09/2019 12:00:00 AM EDT [facility] ([facility]) Name Value Range Interpretation Code Description Data Priscilla rce(s) Supporting Document(s) Basophils Num Bld Auto 0.03 10*3/uL Basop hils Num Bld Auto: 0.03 10*3/uL 10/09/2019 [facility] ([facility]) ID Date Data Source [id number] 10/09/2019 12:00:00 AM EDT [facility] ([facility]) Name Value Range Interpretation Code Description Data Priscilla rce(s) Supporting Document(s) Eosinophil Num Bld Auto 0.25 10*3/uL Eosi nophil Num Bld Auto: 0.25 10*3/uL 10/09/2019 [facility] ([facility]) ID Date Data Source [id number] 10/09/2019 12:00:00 AM EDT [facility] ([facility]) Name Value Range Interpretation Code Description Data Priscilla rce(s) Supporting Document(s) Monocytes Num Bld Auto 0.45 10*3/uL Monoc ytes Num Bld Auto: 0.45 10*3/uL 10/09/2019 [facility] ([facility]) ID Date Data Source [id number] 10/09/2019 12:00:00 AM EDT [facility] ([facility]) Name Value Range Interpretation Code Description Data Priscilla rce(s) Supporting Document(s) Lymphocytes Num Bld Auto 2.14 10*3/uL Lym phocytes Num Bld Auto: 2.14 10*3/uL 10/09/2019 [facility] ([facility]) ID Date Data Source [id number] 10/09/2019 12:00:00 AM EDT [facility] ([facility]) Name Value Range Interpretation Code Description Data Priscilla rce(s) Supporting Document(s) Neutrophils [NUMB/volume] in Blood by Automated count 3.54 10*3/uL Neutrophils [NUMB/volume] in Blood by Automated count: 3.54 10*3/uL 10/09/2019 [facility] ([facility]) ID Date Data Source [id number] 10/09/2019 12:00:00 AM EDT [facility] ([facility]) Name Value Range Interpretation Code Description Data Priscilla rce(s) Supporting Document(s) Basophils/leuk NFr Bld Auto 1 % Basophil s/leuk NFr Bld Auto: 1 % 10/09/2019 [facility] ([facility]) ID Date Data Source [id number] 10/09/2019 12:00:00 AM EDT [facility] ([facility]) Name Value Range Interpretation Code Description Data Priscilla rce(s) Supporting Document(s) Eosinophil/leuk NFr Bld Auto 4 % Eosinophil/leuk NFr Bld Auto: 4 % 10/09/2019 [facility] ([facility]) ID Date Data Source [id number] 10/09/2019 12:00:00 AM EDT [facility] ([facility]) Name Value Range Interpretation Code Description Data Priscilla rce(s) Supporting Document(s) Monocytes/leuk NFr Bld Auto 7 % Monocyte s/leuk NFr Bld Auto: 7 % 10/09/2019 [facility] ([facility]) ID Date Data Source [id number] 10/09/2019 12:00:00 AM EDT [facility] ([facility]) Name Value Range Interpretation Code Description Data Priscilla rce(s) Supporting Document(s) Lymphocytes/leuk NFr Bld Auto 33 % Lymphocytes/leuk NFr Bld Auto: 33 % 10/09/2019 [facility] ([facility]) ID Date Data Source [id number] 10/09/2019 12:00:00 AM EDT [facility] ([facility]) Name Value Range Interpretation Code Description Data Priscilla rce(s) Supporting Document(s) Neutrophils/leuk NFr Bld Auto 55 % Neutrophils/leuk NFr Bld Auto: 55 % 10/09/2019 [facility] ([facility]) ID Date Data Source [id number] 10/09/2019 12:00:00 AM EDT [facility] ([facility]) Name Value Range Interpretation Code Description Data Priscilla rce(s) Supporting Document(s) Differential method Bld 0 Differential method Bld: 0 10/09/2019 [facility] ([facility]) ID Date Data Source [id number] 10/09/2019 12:00:00 AM EDT [facility] ([facility]) Name Value Range Interpretation Code Description Data Priscilla rce(s) Supporting Document(s) Platelet Num Bld Auto 293 10*3/uL Platel et Num Bld Auto: 293 10*3/uL 10/09/2019 [facility] ([facility]) ID Date Data Source [id number] 10/09/2019 12:00:00 AM EDT [facility] ([facility]) Name Value Range Interpretation Code Description Data Priscilla rce(s) Supporting Document(s) RDW RBC Auto-Rto 13.3 % RDW RBC Auto-Rto: 13.3 % 10/09/2019 [facility] ([facility]) ID Date Data Source [id number] 10/09/2019 12:00:00 AM EDT [facility] ([facility]) Name Value Range Interpretation Code Description Data Priscilla rce(s) Supporting Document(s) MCHC RBC Auto-mCnc 34.3 g/dL MCHC RBC Auto-mCn c: 34.3 g/dL 10/09/2019 [facility] ([facility]) ID Date Data Source [id number] 10/09/2019 12:00:00 AM EDT [facility] ([facility]) Name Value Range Interpretation Code Description Data Priscilla rce(s) Supporting Document(s) MCH RBC Qn Auto 31.5 pg MCH RBC Qn Auto: 31 .5 pg 10/09/2019 [facility] ([facility]) ID Date Data Source [id number] 10/09/2019 12:00:00 AM EDT [facility] ([facility]) Name Value Range Interpretation Code Description Data Priscilla rce(s) Supporting Document(s) MCV RBC Auto 91.7 fL MCV RBC Auto: 91.7 fL 10/09/2019 [facility] ([facility]) ID Date Data Source [id number] 10/09/2019 12:00:00 AM EDT [facility] ([facility]) Name Value Range Interpretation Code Description Data Priscilla rce(s) Supporting Document(s) Hct VFr Bld Auto 38.2 % Hct VFr Bld Auto: 38.2 % 10/09/2019 [facility] ([facility]) ID Date Data Source [id number] 10/09/2019 12:00:00 AM EDT [facility] ([facility]) Name Value Range Interpretation Code Description Data Priscilla rce(s) Supporting Document(s) Hgb Bld-mCnc 13.1 g/dL Hgb Bld-mCnc: 13.1 g/d L 10/09/2019 [facility] ([facility]) ID Date Data Source [id number] 10/09/2019 12:00:00 AM EDT [facility] ([facility]) Name Value Range Interpretation Code Description Data Priscilla rce(s) Supporting Document(s) RBC Num Bld Auto 4.17 10*6/uL RBC Num Bld Auto: 4.17 10*6/uL 10/09/2019 [facility] ([facility]) ID Date Data Source [id number] 10/09/2019 12:00:00 AM EDT [facility] ([facility]) Name Value Range Interpretation Code Description Data Priscilla rce(s) Supporting Document(s) WBC Num Bld Auto 6.4 10*3/uL WBC Num Bld Auto: 6.4 10*3/uL 10/09/2019 [facility] ([facility]) ID Date Data Source [id number] 10/09/2019 12:00:00 AM EDT [facility] ([facility]) Name Value Range Interpretation Code Description Data Priscilla rce(s) Supporting Document(s) GFR/BSA pred.black SerPl MDRD-ArVRat 0 ml/min/1.73m2 GFR/BSA pred.black SerPl MDRD-ArVRat: 0 ml/min/1.73m2 10/09/2019 [facility] ([facility]) ID Date Data Source [id number] 10/09/2019 12:00:00 AM EDT [facility] ([facility]) Name Value Range Interpretation Code Description Data Priscilla rce(s) Supporting Document(s) GFR/BSA pred.non black SerPl MDRD-ArVRat 0 ml/min/1.73m2 GFR/BSA pred.non black SerPl MDRD-ArVRat: 0 ml/min/1.73m2 10/09/2019 [facility] ([facility]) ID Date Data Source [id number] 10/09/2019 12:00:00 AM EDT [facility] ([facility]) Name Value Range Interpretation Code Description Data Priscilla rce(s) Supporting Document(s) Albumin/Glob SerPl 1.9 Albumin/Glob SerP l: 1.9 10/09/2019 [facility] ([facility]) ID Date Data Source [id number] 10/09/2019 12:00:00 AM EDT [facility] ([facility]) Name Value Range Interpretation Code Description Data Priscilla rce(s) Supporting Document(s) Anion Gap3 SerPl-sCnc 12 mmol/L Anion Gap3 Ser Pl-sCnc: 12 mmol/L 10/09/2019 [facility] ([facility]) ID Date Data Source [id number] 10/09/2019 12:00:00 AM EDT [facility] ([facility]) Name Value Range Interpretation Code Description Data Priscilla rce(s) Supporting Document(s) ALT SerPl-cCnc 8 U/L ALT SerPl-cCnc: 8 U/ L 10/09/2019 [facility] ([facility]) ID Date Data Source [id number] 10/09/2019 12:00:00 AM EDT [facility] ([facility]) Name Value Range Interpretation Code Description Data Priscilla rce(s) Supporting Document(s) HCO3 Ser-sCnc 24 mmol/L HCO3 Ser-sCnc: 24 mmo l/L 10/09/2019 [facility] ([facility]) ID Date Data Source [id number] 10/09/2019 12:00:00 AM EDT [facility] ([facility]) Name Value Range Interpretation Code Description Data Priscilla rce(s) Supporting Document(s) Creat/Urea nit SerPl 15 Creat/Urea nit SerPl: 15 10/09/2019 [facility] ([facility]) ID Date Data Source [id number] 10/09/2019 12:00:00 AM EDT [facility] ([facility]) Name Value Range Interpretation Code Description Data Pricsilla rce(s) Supporting Document(s) Osmolality SerPl Calc 288 mosm/kg Osmola lity SerPl Ca mosm/kg 10/09/2019 [facility] ([facility]) ID Date Data Source [id number] 10/09/2019 12:00:00 AM EDT [facility] ([facility]) Name Value Range Interpretation Code Description Data Priscilla rce(s) Supporting Document(s) BUN SerPl-mCnc 12 mg/dL BUN SerPl-mCnc: 12 m g/dL 10/09/2019 [facility] ([facility]) ID Date Data Source [id number] 10/09/2019 12:00:00 AM EDT [facility] ([facility]) Name Value Range Interpretation Code Description Data Priscilla rce(s) Supporting Document(s) AST SerPl-cCnc 17 U/L AST SerPl-cCnc: 17 U /L 10/09/2019 [facility] ([facility]) ID Date Data Source [id number] 10/09/2019 12:00:00 AM EDT [facility] ([facility]) Name Value Range Interpretation Code Description Data Priscilla rce(s) Supporting Document(s) Sodium SerPl-sCnc 139 mmol/L Sodium SerPl-sCnc: 139 mmol/L 10/09/2019 [facility] ([facility]) ID Date Data Source [id number] 10/09/2019 12:00:00 AM EDT [facility] ([facility]) Name Value Range Interpretation Code Description Data Priscilla rce(s) Supporting Document(s) Prot SerPl-mCnc 7.3 g/dL Prot SerPl-mCnc: 7. 3 g/dL 10/09/2019 [facility] ([facility]) ID Date Data Source [id number] 10/09/2019 12:00:00 AM EDT [facility] ([facility]) Name Value Range Interpretation Code Description Data Priscilla rce(s) Supporting Document(s) Potassium SerPl-sCnc 4.9 mmol/L Potassium SerPl -sCnc: 4.9 mmol/L 10/09/2019 [facility] ([facility]) ID Date Data Source [id number] 10/09/2019 12:00:00 AM EDT [facility] ([facility]) Name Value Range Interpretation Code Description Data Priscilla rce(s) Supporting Document(s) ALP SerPl-cCnc 42 U/L ALP SerPl-cCnc: 42 U /L 10/09/2019 [facility] ([facility]) ID Date Data Source [id number] 10/09/2019 12:00:00 AM EDT [facility] ([facility]) Name Value Range Interpretation Code Description Data Priscilla rce(s) Supporting Document(s) Glucose SerPl-mCnc 102 mg/dL Glucose SerPl-mCn c: 102 mg/dL 10/09/2019 [facility] ([facility]) ID Date Data Source [id number] 10/09/2019 12:00:00 AM EDT [facility] ([facility]) Name Value Range Interpretation Code Description Data Priscilla rce(s) Supporting Document(s) Creat SerPl-mCnc 0.83 mg/dL Creat SerPl-mCnc: 0.83 mg/dL 10/09/2019 [facility] ([facility]) ID Date Data Source [id number] 10/09/2019 12:00:00 AM EDT [facility] ([facility]) Name Value Range Interpretation Code Description Data Priscilla rce(s) Supporting Document(s) Chloride SerPl-sCnc 103 mmol/L Chloride SerPl-s Cnc: 103 mmol/L 10/09/2019 [facility] ([facility]) ID Date Data Source [id number] 10/09/2019 12:00:00 AM EDT [facility] ([facility]) Name Value Range Interpretation Code Description Data Priscilla rce(s) Supporting Document(s) Calcium SerPl-mCnc 9.2 mg/dL Calcium SerPl-mCn c: 9.2 mg/dL 10/09/2019 [facility] ([facility]) ID Date Data Source [id number] 10/09/2019 12:00:00 AM EDT [facility] ([facility]) Name Value Range Interpretation Code Description Data Priscilla rce(s) Supporting Document(s) Bilirub SerPl-mCnc 0.4 mg/dL Bilirub SerPl-mCn c: 0.4 mg/dL 10/09/2019 [facility] ([facility]) ID Date Data Source [id number] 10/09/2019 12:00:00 AM EDT [facility] ([facility]) Name Value Range Interpretation Code Description Data Priscilla rce(s) Supporting Document(s) Albumin SerPl BCG-mCnc 4.8 g/dL Albumin SerPl BCG-mCnc: 4.8 g/dL 10/09/2019 [facility] ([facility]) ID Date Data Source [id number] 10/09/2019 12:00:00 AM EDT [facility] ([facility]) Name Value Range Interpretation Code Description Data Priscilla rce(s) Supporting Document(s) TSH SerPl-aCnc 0.877 u[IU]/mL TSH SerPl-aCnc: 0.877 u[IU]/mL 10/09/2019 [facility] ([facility]) Procedure Social History Code Duration Value Status Description Data Source(s ) Smoking 05/31/2020 12:00:00 AM EST Never Smoked Cigarettes com pleted Never Smoked Cigarettes [facility] ([facility]) Smoking 12/01/2019 12:00:00 AM EDT Patient has never smoked to bacco completed Patient has never smoked tobacco [facility] ([facility]) Alcohol intake 10/15/2019 12:00:00 AM EDT Yes completed [facility] Smoking 10/15/2019 12:00:00 AM EDT Never smoker completed Never s moker [facility] Vital Signs ID Date Data Source [id number] Name Value Range Interpretation Code Description Data Source(s) Diastolic blood pressure 72 mm[Hg] 72 mm[Hg] eCW1 ([facility]) Systolic blood pressure 112 mm[Hg] 112 mm[Hg] e CW1 ([facility]) Body mass index (BMI) [Ratio] 20.57 kg/m2 20.57 kg/m2 W1 ([facility]) Body height 65 [in_i] 65 [in_i] eCW1 ([facility]) Body weight 56.06 kg 56.06 kg [facility] ([facility]) Body weight 123.6 [lb_av] 123.6 [lb_av] eCW1 ([facility]) Norman body weight 125 [lb_av] 125 [lb_av] MEDEN T ([facility]) Body mass index (BMI) [Ratio] 21.1 kg/m2 21.1 k g/m2 [facility] ([facility]) Body height 65 [in_i] 65 [in_i] [facility] ([facility]) 5'5" Body weight 57.607 kg 57.607 kg [facility] ([facility]) Body weight 127.00 [lb_av] 127.00 [lb_av] MEDEN T ([facility]) Respiratory rate 16 /min 16 /min [facility] ( [facility]) Body temperature 98.0 [degF] 98.0 [degF] [facility] ([facility]) Heart rate 60 /min 60 /min [facility] ([facility]) Diastolic blood pressure 80 mm[Hg] 80 mm[Hg] [facility] ([facility]) Systolic blood pressure 120 mm[Hg] 120 mm[Hg] M EDENT ([facility]) Diastolic blood pressure 80 mm[Hg] 80 mm[Hg] eCW1 ([facility]) Systolic blood pressure 102 mm[Hg] 102 mm[Hg] e CW1 ([facility]) Body mass index (BMI) [Ratio] 20.2 kg/m2 20.2 k g/m2 eCW1 ([facility]) Body height 65 [in_i] 65 [in_i] eCW1 ([facility]) Body weight 55.07 kg 55.07 kg W1 ([facility]) Body weight 121.4 [lb_av] 121.4 [lb_av] eCW1 ([facility]) Inhaled oxygen concentration 21 % 21 % [facility] ([facility]) Oxygen saturation in Arterial blood by Pulse oximetry 100 % 100 % [facility] ([facility]) Heart rate 85 /min 85 /min [facility] ([facility]) Body temperature 98.1 [degF] 98.1 [degF] CHARTM ERNIE ([facility]) Diastolic blood pressure 62 mm[Hg] 62 mm[Hg] [facility] ([facility]) Systolic blood pressure 98 mm[Hg] 98 mm[Hg] M EDENT ([facility]) [place] body weight 125 [lb_av] 125 [lb_av] MEDEN T ([facility]) Body mass index (BMI) [Ratio] 20.1 kg/m2 20.1 k g/m2 [facility] ([facility]) Body height 65 [in_i] 65 [in_i] [facility] ([facility] 5'5" Body weight 54.886 kg 54.886 kg [facility] ([facility] Body weight 121.00 [lb_av] 121.00 [lb_av] MEDEN T ([facility]) Respiratory rate 18 /min 18 /min [facility] ( [facility]) Body temperature 97.8 [degF] 97.8 [degF] [facility] ([facility]) Heart rate 60 /min 60 /min [facility] ([facility]) Oxygen saturation in Arterial blood by Pulse oximetry 99 % 99 % [facility] Respiratory rate 18 /min 18 /min [facility] Body temperature 37 Maya 37 Maya [facility] Heart rate 67 /min 67 /min [facility] Diastolic blood pressure 71 mm[Hg] 71 mm[Hg] [facility] Systolic blood pressure 117 mm[Hg] 117 mm[Hg] [facility] Body mass index (BMI) [Ratio] 20.14 kg/m2 20.14 kg/m2 [facility] Body weight 54.885 kg 54.885 kg [facility] Body height 165.1 cm 165.1 cm [facility] ID Date Data Source [id number] 06/02/2020 03:13:00 AM [facility] Name Value Range Interpretation Code Description Data Source(s) TRANSFER FROM Employee Testing Employee Testing [facility]
[2020-06-30 06:39] LABS: HEMATOCRIT 39.8 % (36.0-47.0); HEMOGLOBIN 12.9 g/dl (12.0-15.5); MEAN CORPUSCULAR HGB CONC 32.4 g/dl (32.0-36.5); MEAN CORPUSCULAR VOLUME 92.6 fl (80.0-96.0); PLATELET COUNT, AUTOMATED 279 10^3/uL (150-450); WHITE BLOOD COUNT 5.6 10^3/uL (4.0-10.0)
[2020-06-30] MEDS ORDERED: BUPIVACAINE HCL 0.25% 30ML VIAL As Ordered ONE (07:08)
[2020-06-30] MEDS ORDERED: LIDOCAINE 1% SDV 30ML VIAL As Ordered ONE (07:08)
[2020-06-30] MEDS ORDERED: fentaNYL 250 MCG/5 ML INJECTION (J3010) As Ordered ONE (08:03)
[2020-06-30] MEDS ORDERED: LIDOCAINE 2% 100MG/5ML SDV (FOR ANES.) As Ordered ONE (08:03)
[2020-06-30] MEDS ORDERED: MIDAZOLAM INJ 2MG/2ML VIAL (J2250 PER 1MG) As Ordered ONE (08:03)
[2020-06-30] MEDS ORDERED: KETOROLAC 60MG 2ML VIAL As Ordered ONE (08:03)
[2020-06-30] MEDS ORDERED: propofoL 200 MG/20 ML VIAL As Ordered ONE (08:03)
[2020-06-30] MEDS ORDERED: METOCLOPRAMIDE INJ 10MG/2ML VIAL (J2765 PER 1) As Ordered ONE (08:03)
[2020-06-30] MEDS ORDERED: SUGAMMADEX SODIUM 500 MG/5 ML VIAL (BRIDION) As Ordered ONE (08:03)
[2020-06-30] MEDS ORDERED: ROCURONIUM BROMIDE 50 MG/5 ML VIAL As Ordered ONE (08:03)
[2020-06-30] MEDS ORDERED: dexameTHASONE 4 MG/ML 1ML VIAL (J1100 PER 1MG) As Ordered ONE (08:03)
[2020-06-30] MEDS ORDERED: ACETAMINOPHEN 1000MG 100ML IV BTL (OFIRMEV) (J0131 PER 10MG) As Ordered ONE (08:03)
[2020-06-30] MEDS ORDERED: ONDANSETRON 4MG/2ML VIAL As Ordered ONE (08:03)
--- NOTE | 2020-06-30 08:56 | ROOPDOC ---
[facility] Report Of Operation Report of Operation DATE OF PROCEDURE: 06/30/20 PREPROCEDURE DIAGNOSES: Undesired fertility, menorrhagia POSTPROCEDURE DIAGNOSES: same. PROCEDURE: Laparoscopic bilateral salpingectomy. Hysteroscopy, dilation and curettage, Novasure endometrial ablation, excision of skin tag right groin SURGEON: Leonora Irene MD ANESTHESIA: Gen. endotracheal anesthesia. ESTIMATED BLOOD LOSS: Approximately 10 mL. UO: 100 cc COMPLICATIONS: None. FINDINGS: Normal pelvis including uterus, fallopian tubes and ovaries. Normal upper abdomen. Normal endometrial cavity. PROCEDURE NOTE: Patient was taken to the operating room where general endotracheal anesthesia induced. She was prepped draped sterile fashion in the dorsal lithotomy position. A sponge stick was placed in the vagina and uses manipulator. The bladder was emptied with a catheter. A periumbilical incision was made with the scalpel. A Veress needle was placed through this incision while tenting up on the skin of the abdomen.. Intra-abdominal location of the Veress needle was assessed with use of a saline filled syringe. A pneumoperitoneum was created. The Veress needle was removed. A 5 mm trocar using the Visiport was inserted through this incision. A 5 and 8 mm suprapubic port was placed under direct visualization without difficulty. A 5 mm scope with camera used to visualize the abdomen and pelvis. The patient was placed in Trendelenburg position. A grasping instrument was used to elevate each fallopian tube. The fallopian tubes were detached from their broad ligament attachments by using LigaSure. Both fallopian tubes were excised near their origins. Both fallopian tubes were removed through the suprapubic ports. All instruments were removed. The pneumoperitoneum was released. The skin was closed with 4-0 Monocryl subcuticular sutures. Sponge, instrument and needle counts are correct. Attention was turned to the vagina. A 2-3 mm skin tag was visualized in the right groin area. A tissue forceps was used to elevate the skin tag. A scalpel was used to excise the skin tag at its base. Good hemostasis was noted. A speculum was placed in the vagina. The anterior lip of the cervix was grasped with a tenaculum. Cervix dilated with tapered dilators. A diagnostic hysteroscope using normal saline as the distention media was inserted through the internal os. Visualization the endometrial cavity revealed findings noted above. Sharp curettage was performed. A Novasure device was inserted through the internal os. Total cavity length was 4.0 cm. Cavity width was calculated at 3.0 cm. Power setting was 66 W. A successful cavity assessment was performed. The device was activated. Total coagulation time was 2 minutes. The NovaSure device was removed. The hysteroscope was inserted through the internal os. An excellent coagulation effect was noted throughout the endometrium with sparing of the cervix. All instruments were removed. Sponge, instrument counts were correct. The patient went to the recovery room in stable condition. LEONORA IRENE MD Jun 30, 2020 08:56
[2020-06-30] MEDS ORDERED: LR 1,000 ML IV SCH ×2 (09:00)
[2020-06-30] MEDS ORDERED: PERCOCET 5MG/325MG TAB PO PRN (09:00)
[2020-06-30] MEDS ORDERED: OXYC1TAB23 PO (09:00)
[2020-06-30] MEDS ORDERED: fentaNYL 100 MCG/2 ML INJECTION (J3010) IV PRN (09:00)
[2020-06-30] MEDS ORDERED: oxyCODONE 5MG TAB PO PRN (09:00)
[2020-06-30] MEDS ORDERED: ONDANSETRON 4MG/2ML VIAL IV PRN (09:00)
[2020-06-30] MEDS ORDERED: IBUP-1022 PO (09:01)
[2020-06-30] MEDS ORDERED: LIDOCAINE 1% SDV 30ML VIAL XX ONE (09:45)
[2020-06-30 11:21] VITALS: BP 121/71
== END 2020-06-30 11:48 | disposition home or self-care (01) ==
LOC: M SDC 06:00
PROVIDERS: ATTEND Specialist
DX: Z30.2 Encounter for sterilization (principal); N92.0 Excessive and frequent menstruation with regular cycle; F41.9 Anxiety disorder, unspecified
CPT/HCPCS: 11200; 36415; 58563; 58661; 81025; 85027; 88302; 88304; 88305; J0131; J1100; J1885; J2250; J2405; J2765; J3010

== ENCOUNTER → 2022-10-19 | Outpatient (CLI) | payer BC ==
[~2022-10-19] MED LIST changes: +IBUP-1022 PO; -LR 1,000 ML IV ONE
[2022-10-19 20:32] LABS: BASO % 0.5 % (0.0-1.0); EOS # 0.1 10^3/uL (0.0-0.5); EOS % 1.4 % (0.0-3.0); HEMATOCRIT 40.7 % (36.0-47.0); HEMOGLOBIN 13.6 g/dl (12.0-15.5); LYMPH # 2.6 10^3/uL (1.5-5.0); LYMPH % 34.4 % (24.0-44.0); MEAN CORPUSCULAR HEMOGLOBIN 31.9 pg (27.0-33.0); MEAN CORPUSCULAR HGB CONC 33.4 g/dl (32.0-36.5); MEAN CORPUSCULAR VOLUME 95.5 fl (80.0-96.0); MONO # 0.6 10^3/uL (0.0-0.8); MONO % 8.4 % (2.0-8.0); NEUTROPHILS # 4.2 10^3/uL (1.5-8.5); NEUTROPHILS % 55.2 % (36.0-66.0); PLATELET COUNT, AUTOMATED 311 10^3/uL (150-450); RED BLOOD COUNT 4.26 10^6/uL (4.00-5.40); WHITE BLOOD COUNT 7.6 10^3/uL (4.0-10.0)
[2022-10-19 20:34] LABS: LIPASE 40 U/L (12-53)
[2022-10-19 20:36] LABS: ALBUMIN 4.3 G/DL (3.2-5.2); ALKALINE PHOSPHATASE 41 U/L (46-116); ALT/SGPT 16 U/L (7.0-40); AMYLASE 74 U/L (30-118); AST/SGOT 14 U/L (<34); BILIRUBIN,TOTAL 0.7 MG/DL (0.3-1.2); BLOOD UREA NITROGEN 15 MG/DL (9-23); CALCIUM LEVEL 8.8 MG/DL (8.5-10.1); CARBON DIOXIDE LEVEL 27 MMOL/L (20-31); CHLORIDE LEVEL 105 MMOL/L (98-107); GLOMERULAR FILTRATION RATE > 60.0 (>60); GLUCOSE, FASTING 83 MG/DL (60-100); SODIUM LEVEL 140 MMOL/L (136-145); TOTAL PROTEIN 6.9 G/DL (5.7-8.2)
== END ==
LOC: M WUC 13:14
DX: D13.6 Benign neoplasm of pancreas (principal); K86.9 Disease of pancreas, unspecified